=== PATIENT | male | born 1940 | race Asian ===

== ENCOUNTER 2018-01-07 13:48 | Inpatient (IN) | payer MEDICARE, MEDICAID ==
[~2018-01-07] VITALS: Ht 165.1 cm; Wt 40.6 kg
[~2018-01-07 13:48] MED LIST: ATORVASTATIN CA20 MG ORAL; CLOPIDOGREL75 MG ORAL; FUROSEMIDE20 M1 ORAL; GLIMEPIRIDE4 MG ORAL; GLIPIZIDE5 MG ORAL; ISOSORBIDE MONO60 M1 PO; LISINOPRIL20 MG ORAL; METFORMIN HCL1000 M1 ORAL; POTASSIUM CHLO10 MEQ ORAL; TERAZOSIN HCL1 MG ORAL; TRADJENTA5 MG PO
--- NOTE | 2018-01-07 13:53 | Emergency Room Report ---
"History of Present Illness General Source: EMS (Vasiliy Lu MD) Source: Medical Record, EMS (Bushra Dee DO) Present Illness HPI Patient is a 77-year-old male brought in by EMS after the patient was noted to have decreased blood pressure. Patient was reportedly the noted to have prior history of type had type 2 diabetes and hypertension. Patient was noted be hypotensive by EMS. The patient was noted to be poorly verbal.The patient had recently discharged from the hospital. The patient was noted to have a recent myocardial infarction.Patient denies any chest pain at this time. 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 pain Was reportedly sent to the emergency room with reports of low blood pressure Patient had a complicated medical stay and history including possible tuberculosis Also cardiac event non-STEMI Patient family had refused any further intervention at that time Upon today's arrival the patient's EKG was significantly abnormal Previous EKG is printed and contact was made with cardiology specialty who saw the patient in the hospital recently It was felt that the patient's EKG appeared similar to his previous and further catheterization intervention| diverted (Bushra Dee DO) Allergies: Coded Allergies: No Known Allergies (Unverified , 12/17/17) Patient History Past Medical History: see triage record Reviewed Nursing Documentation: PMH: Agreed; PSxH: Agreed (Vasiliy Lu MD) Limited by: medical condition Past Medical History: see triage record Pertinent Family History: unable to obtain Reviewed Nursing Documentation: PMH: Agreed; PSxH: Agreed (Bushra Dee DO) Nursing Documentation-PMH Hx Cardiac Problems: Yes Hx Hypertension: Yes Hx COPD: Yes Hx Diabetes: Yes Hx Cancer: No Hx Gastrointestinal Problems: No Hx Neurological Problems: No (Vasiliy Lu MD) Review of Systems All Other Systems: limited - by poor historian (Vasiliy Lu MD) All Other Systems: limited - Other than the ones mentioned in the history of present illness all others are reviewed however they do stay limited due to the patient's mental status (Bushra Dee DO) Physical Exam Sp02 EP Interpretation: reviewed, normal General Appearance: normal inspection, alert, cachetic, thin, Chronically Ill Head: atraumatic ENT: normal ENT inspection, hearing grossly normal, normal voice Neck: normal inspection, full range of motion, supple, no bony tend Respiratory: normal inspection, lungs clear, normal breath sounds, no respiratory distress, no retraction, no wheezing Cardiovascular #1: regular rate, rhythm, no edema Gastrointestinal: normal inspection, normal bowel sounds, non tender, soft, no guarding, no hernia Genitourinary: no CVA tenderness Musculoskeletal: normal inspection, back normal, normal range of motion Neurologic: alert, responsive, speech normal Psychiatric: normal inspection, judgement/insight normal, mood/affect normal Skin: normal inspection, normal color, no rash (Vasiliy Lu MD) 98% on 2 L which is a normal percentage Sp02 EP Interpretation: normal General Appearance: mild distress - Patient appears frail Head: normocephalic, atraumatic Eyes: bilateral eye PERRL ENT: dry mucus membranes Neck: supple Respiratory: no respiratory distress, no retraction, crackles Cardiovascular #1: regular rate, rhythm, no edema Gastrointestinal: non tender, soft, no mass Musculoskeletal: normal inspection Neurologic: alert, responsive Skin: no rash (Bushra Dee DO) Procedures Critical Care Time Critical Care Time 50 minutes for multiple re-evaluations initial hypotensive presentation multiple comorbidities multiple specialists not including any procedural time (Bushra Dee DO) Medical Decision Making Diagnostic Impression: Primary Impression: NSTEMI (non-ST elevated myocardial infarction) Additional Impression: Hypotension ER Course Patient presented for hypotension. The differential diagnosis included wasn't limited to myocardial infarction, aortic dissection, sepsis, dehydration among others.Because of complexity of patient's case laboratory testing and imaging studies were ordered. The EKG was noted to have evidence of markedness to depression in the lateral leads. (Vasiliy Lu MD) ER Course Patient is a fairly complex patient with multiple differential to consideration including but not limited to cardiac cardiopulmonary and vascular emergencies Patient has extensive and significant medical history Troponin levels again returned elevated Patient's EKG is reviewed with cardiology at bedside It is felt that the EKG shows some similar findings to previous And therefore cardiac catheterization was not emergently required Patient's blood pressure has done better with acute intervention Patient requiring higher level of care admission continued care Labs Test 01/07/18 15:15 White Blood Count 4.7 K/UL (4.8-10.8) Red Blood Count 2.45 M/UL (4.70-6.10) Hemoglobin 7.9 G/DL (14.2-18.0) Hematocrit 24.9 % (42.0-52.0) Mean Corpuscular Volume 101 FL (80-99) Mean Corpuscular Hemoglobin 32.4 PG (27.0-31.0) Mean Corpuscular Hemoglobin Concent 32.0 G/DL (32.0-36.0) Red Cell Distribution Width 15.9 % (11.6-14.8) Platelet Count 286 K/UL (150-450) Mean Platelet Volume 5.3 FL (6.5-10.1) Neutrophils (%) (Auto) 74.8 % (45.0-75.0) Lymphocytes (%) (Auto) 13.0 % (20.0-45.0) Monocytes (%) (Auto) 7.9 % (1.0-10.0) Eosinophils (%) (Auto) 2.9 % (0.0-3.0) Basophils (%) (Auto) 1.3 % (0.0-2.0) Prothrombin Time 11.3 SEC (9.30-11.50) Prothromb Time International Ratio 1.1 (0.9-1.1) Activated Partial Thromboplast Time 28 SEC (23-33) Sodium Level 143 MMOL/L (136-145) Potassium Level 3.6 MMOL/L (3.5-5.1) Chloride Level 109 MMOL/L (98-107) Carbon Dioxide Level 30 MMOL/L (21-32) Anion Gap 4 mmol/L (5-15) Blood Urea Nitrogen 31 mg/dL (7-18) Creatinine 0.7 MG/DL (0.55-1.30) Estimat Glomerular Filtration Rate mL/min (>60) Glucose Level 142 MG/DL (74-106) Calcium Level 8.4 MG/DL (8.5-10.1) Total Bilirubin 0.4 MG/DL (0.2-1.0) Aspartate Amino Transf (AST/SGOT) 26 U/L (15-37) Alanine Aminotransferase (ALT/SGPT) 19 U/L (12-78) Alkaline Phosphatase 88 U/L (46-116) Total Creatine Kinase 61 U/L (26-308) Creatine Kinase MB 2.8 NG/ML (0.0-3.6) Creatine Kinase MB Relative Index 4.5 Troponin I 3.757 ng/mL (0.000-0.056) Pro-B-Type Natriuretic Peptide 9091 pg/mL (0-125) Total Protein 5.9 G/DL (6.4-8.2) Albumin 2.3 G/DL (3.4-5.0) Globulin 3.6 g/dL Albumin/Globulin Ratio 0.6 (1.0-2.7) Lipase 99 U/L (73-393) (Bushra Dee DO) EKG Diagnostic Results Rate: normal Rhythm: NSR ST Segments: other - Mild changes in the V1 and V2, ST segment mild elevation, V4 V5 ST segment depression (Bushra Dee DO) Rhythm Strip Diag. Results EP Interpretation: yes Rate: 88 Rhythm: NSR, no PVC's, no ectopy (Bushra Dee DO) Chest X-Ray Diagnostic Results Chest X-Ray Diagnostic Results : Chest X-Ray Ordered: Yes # of Views/Limited/Complete: 1 View Indication: Chest Pain EP Interpretation: Yes Interpretation: no consolidation, no pneumothorax, other Impression: No acute disease (Bushra Dee DO) Status: improved (Vasiliy Lu MD) Status: improved (Bushra Dee DO) Disposition: ADMITTED INPATIENT Condition: Critical Vasiliy Lu MD Jan 07, 2018 13:53 Bushra Dee DO Jan 07, 2018 15:32"
[2018-01-07] MEDS ORDERED: Sodium Chloride 500ML 500 ML IV ONE (14:00)
[2018-01-07 14:33] VITALS: BP 90/40
--- NOTE | 2018-01-07 15:21 | Cardiac Electrophysiology PN ---
Subjective Subjective [id number] Objective Last 24 Hour Vital Signs Date Time Temp Pulse Resp B/P (MAP) Pulse Ox O2 Delivery O2 Flow Rate FiO2 01/07/18 14:33 99.0 16 90/40 97 Room Air 99.0 01/07/18 13:50 99.0 80 16 90/40 97 Room Air 99.0 Domingo Swanson MD Jan 07, 2018 15:21
[2018-01-07 15:33] LABS: HEMATOCRIT 24.9 % (42.0-52.0); HEMOGLOBIN 7.9 G/DL (14.2-18.0); MEAN CORPUSCULAR VOLUME 101 FL (80-99); PLATELET COUNT 286 K/UL (150-450); RED BLOOD COUNT 2.45 M/UL (4.70-6.10); RED CELL DISTRIBUTION WIDTH 15.9 % (11.6-14.8); WHITE BLOOD COUNT 4.7 K/UL (4.8-10.8)
[2018-01-07 15:36] LABS: BASOPHILS % (AUTO) 1.3 % (0.0-2.0); EOSINOPHILS % (AUTO) 2.9 % (0.0-3.0); MONOCYTES % (AUTO) 7.9 % (1.0-10.0); NEUTROPHILS % (AUTO) 74.8 % (45.0-75.0)
[2018-01-07 15:46] LABS: INR 1.1 (0.9-1.1)
[2018-01-07 15:50] LABS: ANION GAP 4 mmol/L (5-15); BLOOD UREA NITROGEN 31 mg/dL (7-18); CALCIUM 8.4 MG/DL (8.5-10.1); CARBON DIOXIDE 30 MMOL/L (21-32); CHLORIDE 109 MMOL/L (98-107); CREATININE 0.7 MG/DL (0.55-1.30); POTASSIUM 3.6 MMOL/L (3.5-5.1); SODIUM 143 MMOL/L (136-145)
[2018-01-07 16:05] LABS: ALANINE AMINOTRANSFERASE 19 U/L (12-78); ALBUMIN 2.3 G/DL (3.4-5.0); ALBUMIN/GLOBULIN RATIO 0.6 (1.0-2.7); ALKALINE PHOSPHATASE 88 U/L (46-116); ASPARTATE AMINO TRANSFERASE 26 U/L (15-37); BILIRUBIN,TOTAL 0.4 MG/DL (0.2-1.0); CKMB 2.8 NG/ML (0.0-3.6); CREATINE KINASE 61 U/L (26-308)
[2018-01-07 16:21] VITALS: BP_SYST 101; BP_SYST 103; BP_SYST 98; BP_DIAS 43; BP_DIAS 48; BP_DIAS 57
[2018-01-07 16:28] VITALS: BP 103/57
[2018-01-07] MEDS ORDERED: POTASSIUM CHLOR8 ME2 PO (17:32)
[2018-01-07] MEDS ORDERED: CLOPIDOGREL75 MG ORAL (17:32)
[2018-01-07] MEDS ORDERED: GLIMEPIRIDE4 MG ORAL (17:32)
[2018-01-07] MEDS ORDERED: ISOSORBIDE MONO60 M1 PO (17:32)
[2018-01-07] MEDS ORDERED: GLUCOTROL10 MG ORAL (17:32)
[2018-01-07] MEDS ORDERED: METFORMIN HCL1000 M1 ORAL (17:32)
[2018-01-07] MEDS ORDERED: LISINOPRIL20 MG ORAL (17:32)
[2018-01-07] MEDS ORDERED: ATORVASTATIN CA20 MG ORAL (17:32)
[2018-01-07 17:34] VITALS: BP 101/55
--- NOTE | 2018-01-07 18:06 | History and Physical ---
"History of Present Illness General Reason for Hospitalization: Generalized Weakness Present Illness Allergies: Coded Allergies: No Known Allergies (Unverified , 12/17/17) Medication History Scheduled Atorvastatin Calcium* (Atorvastatin Calcium*), 20 MG ORAL DAILY, (Reported) Clopidogrel* (Clopidogrel*), 75 MG ORAL DAILY, (Reported) Glimepiride* (Glimepiride*), 4 MG ORAL BID, (Reported) Glipizide* (Glucotrol*), 10 MG ORAL BID, (Reported) Isosorbide Mononitrate (Isosorbide Mononitrate Er), 60 MG PO DAILY, (Reported) Lisinopril (Lisinopril*), 20 MG ORAL DAILY, (Reported) Metformin Hcl* (Metformin Hcl*), 1,000 MG ORAL BID, (Reported) Potassium Chloride (Potassium Chloride), 8 MEQ PO DAILY, (Reported) Patient History Healthcare decision maker Resuscitation status Advanced Directive on File Physical Exam General Appearance: no apparent distress Lines, tubes and drains: peripheral HEENT: normocephalic, atraumatic, EOMI, pharynx normal Neck: non-tender, normal inspection Respiratory/Chest: lungs clear Cardiovascular/Chest: normal peripheral pulses, normal rate, regular rhythm, no JVD Abdomen: non tender, soft, no organomegaly Extremities: normal range of motion Last 24 Hour Vital Signs Date Time Temp Pulse Resp B/P (MAP) Pulse Ox O2 Delivery O2 Flow Rate FiO2 01/07/18 17:34 96.8 66 18 101/55 (70) 98 96.8 01/07/18 17:27 98.9 85 18 103/57 98 Room Air 98.9 01/07/18 16:28 98.9 85 18 103/57 98 Room Air 98.9 01/07/18 16:21 71 103/57 72 101/43 01/07/18 14:33 99.0 16 90/40 97 Room Air 99.0 01/07/18 13:50 99.0 80 16 90/40 97 Room Air 99.0 Intake and Output 01/06/18 01/07/18 19:00 07:00 # Bowel Movements 1 Laboratory Tests Test 01/07/18 15:15 White Blood Count 4.7 K/UL (4.8-10.8) L Red Blood Count 2.45 M/UL (4.70-6.10) L Hemoglobin 7.9 G/DL (14.2-18.0) L Hematocrit 24.9 % (42.0-52.0) L Mean Corpuscular Volume 101 FL (80-99) H Mean Corpuscular Hemoglobin 32.4 PG (27.0-31.0) H Mean Corpuscular Hemoglobin Concent 32.0 G/DL (32.0-36.0) Red Cell Distribution Width 15.9 % (11.6-14.8) H Platelet Count 286 K/UL (150-450) Mean Platelet Volume 5.3 FL (6.5-10.1) L Neutrophils (%) (Auto) 74.8 % (45.0-75.0) Lymphocytes (%) (Auto) 13.0 % (20.0-45.0) L Monocytes (%) (Auto) 7.9 % (1.0-10.0) Eosinophils (%) (Auto) 2.9 % (0.0-3.0) Basophils (%) (Auto) 1.3 % (0.0-2.0) Prothrombin Time 11.3 SEC (9.30-11.50) Prothromb Time International Ratio 1.1 (0.9-1.1) Activated Partial Thromboplast Time 28 SEC (23-33) Sodium Level 143 MMOL/L (136-145) Potassium Level 3.6 MMOL/L (3.5-5.1) Chloride Level 109 MMOL/L (98-107) H Carbon Dioxide Level 30 MMOL/L (21-32) Anion Gap 4 mmol/L (5-15) L Blood Urea Nitrogen 31 mg/dL (7-18) H Creatinine 0.7 MG/DL (0.55-1.30) Estimat Glomerular Filtration Rate mL/min (>60) Glucose Level 142 MG/DL (74-106) H Calcium Level 8.4 MG/DL (8.5-10.1) L Total Bilirubin 0.4 MG/DL (0.2-1.0) Aspartate Amino Transf (AST/SGOT) 26 U/L (15-37) Alanine Aminotransferase (ALT/SGPT) 19 U/L (12-78) Alkaline Phosphatase 88 U/L (46-116) Total Creatine Kinase 61 U/L (26-308) Creatine Kinase MB 2.8 NG/ML (0.0-3.6) Creatine Kinase MB Relative Index 4.5 Troponin I 3.757 ng/mL (0.000-0.056) Pro-B-Type Natriuretic Peptide 9091 pg/mL (0-125) H Total Protein 5.9 G/DL (6.4-8.2) L Albumin 2.3 G/DL (3.4-5.0) L Globulin 3.6 g/dL Albumin/Globulin Ratio 0.6 (1.0-2.7) L Lipase 99 U/L (73-393) Height (Feet): 5 Height (Inches): 5.00 Weight (Pounds): 70 Objective Narrative Sp02 EP Interpretation: reviewed, normal General Appearance: normal inspection, alert, cachetic, thin, Chronically Ill 98% on 2 L which is a normal percentage Sp02 EP Interpretation: normal General Appearance: mild distress - Patient appears frail Head: normocephalic, atraumatic Eyes: bilateral eye PERRL ENT: dry mucus membranes Neck: supple Respiratory: no respiratory distress, no retraction, crackles Cardiovascular #1: regular rate, rhythm, no edema Gastrointestinal: non tender, soft, no mass Musculoskeletal: normal inspection Neurologic: alert, responsive Skin: no rash Assessment/Plan Status: stable Status Narrative HPI Patient is a 77-year-old male brought in by EMS after the patient was noted to have decreased blood pressure. Patient was reportedly the noted to have prior history of type had type 2 diabetes and hypertension. Patient was noted be hypotensive by EMS. The patient was noted to be poorly verbal.The patient had recently discharged from the hospital. The patient was noted to have a recent myocardial infarction.Patient denies any chest pain at this time. 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 patient denies any chest pain Was reportedly sent to the emergency room with reports of low blood pressure Patient had a complicated medical stay and history including tuberculosis on 4 drug anti TB treatment Also cardiac event non-STEMI Patient family had refused any further intervention at that time Upon today's arrival the patient's EKG was significantly abnormal Previous EKG is printed and contact was made with cardiology specialty who saw the patient in the hospital recently It was felt that the patient's EKG appeared similar to his previous and further catheterization intervention| diverted Allergies: Coded Allergies: No Known Allergies (Unverified , 12/17/17) Past Medical History: Hx Cardiac Problems: CAD, recent STEMI Hx Hypertension: Yes Hx COPD: Yes Hx Diabetes: Yes Hx Cancer: No Hx Gastrointestinal Problems: No Hx Neurological Problems: No Hx Tuberculosis: Yes ROS: All Other Systems: limited - Other than the ones mentioned in the history of present illness all others are reviewed however they do stay limited due to the patient's mental status Diagnostic Impression: Primary Impression: NSTEMI (non-ST elevated myocardial infarction) Additional Impression: Hypotension Patient presented for hypotension. The differential diagnosis included wasn't limited to myocardial infarction, aortic dissection, sepsis, dehydration among others.Because of complexity of patient's case laboratory testing and imaging studies were ordered. The EKG was noted to have evidence of markedness to depression in the lateral leads. Patient is a fairly complex patient with multiple differential to consideration including but not limited to cardiac cardiopulmonary and vascular emergencies Patient has extensive and significant medical history Troponin levels again returned elevated Patient's EKG is reviewed with cardiology at bedside It is felt that the EKG shows some similar findings to previous And therefore cardiac catheterization was not emergently required Patient's blood pressure has done better with acute intervention Patient requiring higher level of care admission continued care Labs Test 01/07/18 15:15 White Blood Count 4.7 K/UL (4.8-10.8) Red Blood Count 2.45 M/UL (4.70-6.10) Hemoglobin 7.9 G/DL (14.2-18.0) Hematocrit 24.9 % (42.0-52.0) Mean Corpuscular Volume 101 FL (80-99) Mean Corpuscular Hemoglobin 32.4 PG (27.0-31.0) Mean Corpuscular Hemoglobin Concent 32.0 G/DL (32.0-36.0) Red Cell Distribution Width 15.9 % (11.6-14.8) Platelet Count 286 K/UL (150-450) Mean Platelet Volume 5.3 FL (6.5-10.1) Neutrophils (%) (Auto) 74.8 % (45.0-75.0) Lymphocytes (%) (Auto) 13.0 % (20.0-45.0) Monocytes (%) (Auto) 7.9 % (1.0-10.0) Eosinophils (%) (Auto) 2.9 % (0.0-3.0) Basophils (%) (Auto) 1.3 % (0.0-2.0) Prothrombin Time 11.3 SEC (9.30-11.50) Prothromb Time International Ratio 1.1 (0.9-1.1) Activated Partial Thromboplast Time 28 SEC (23-33) Sodium Level 143 MMOL/L (136-145) Potassium Level 3.6 MMOL/L (3.5-5.1) Chloride Level 109 MMOL/L (98-107) Carbon Dioxide Level 30 MMOL/L (21-32) Anion Gap 4 mmol/L (5-15) Blood Urea Nitrogen 31 mg/dL (7-18) Creatinine 0.7 MG/DL (0.55-1.30) Estimat Glomerular Filtration Rate mL/min (>60) Glucose Level 142 MG/DL (74-106) Calcium Level 8.4 MG/DL (8.5-10.1) Total Bilirubin 0.4 MG/DL (0.2-1.0) Aspartate Amino Transf (AST/SGOT) 26 U/L (15-37) Alanine Aminotransferase (ALT/SGPT) 19 U/L (12-78) Alkaline Phosphatase 88 U/L (46-116) Total Creatine Kinase 61 U/L (26-308) Creatine Kinase MB 2.8 NG/ML (0.0-3.6) Creatine Kinase MB Relative Index 4.5 Troponin I 3.757 ng/mL (0.000-0.056) Pro-B-Type Natriuretic Peptide 9091 pg/mL (0-125) Total Protein 5.9 G/DL (6.4-8.2) Albumin 2.3 G/DL (3.4-5.0) Globulin 3.6 g/dL Albumin/Globulin Ratio 0.6 (1.0-2.7) Lipase 99 U/L (73-393) EKG: Rate: normal Rhythm: NSR ST Segments: other - Mild changes in the V1 and V2, ST segment mild elevation, V4 V5 ST segment depression Corwin Vyas MD Jan 07, 2018 18:06"
[2018-01-07 20:00] VITALS: BP 91/51
[2018-01-07] MEDS ORDERED: Tylenol #3 tab (300mg/30mg) ORAL PRN (20:00)
[2018-01-07] MEDS: Heparin 5000 units/ml inj SUBQ SCH (21:00)
[2018-01-07] MEDS: NovoLOG Insulin Flexpen SUBQ SCH (21:00)
[2018-01-07] MEDS ORDERED: Terazosin 1mg cap ORAL SCH (21:00)
[2018-01-07] MEDS: Isoniazid 300mg tab ORAL SCH (21:37)
[2018-01-07] MEDS: Pyridoxine 50mg tab ORAL SCH (21:38)
[2018-01-07] MEDS: RIFAMPIN 150 MG ORAL SCH (21:38)
[2018-01-07] MEDS: Atorvastatin 20mg tab ORAL SCH (21:40)
[2018-01-07] MEDS: Nitroglycerin 2% oint pkt TOPIC SCH (21:55)
[2018-01-08] VITALS: BP 83/41
--- NOTE | 2018-01-08 | Consultation ---
DATE OF CONSULTATION: CARDIOLOGY CONSULTATION CONSULTING PHYSICIAN: Domingo Swanson M.D. REFERRING PHYSICIAN: Corwin Vyas M.D. REASON FOR CONSULTATION: Possible myocardial infarction. HISTORY OF PRESENT ILLNESS: The patient is a 77-year-old gentleman with history of hypertension, diabetes, and recent non-Q-wave myocardial infarction with troponin around 6, which was discharged yesterday. Cardiac catheterization was offered to the patient, however, they refused and wanted to have medical therapy. The patient was noted to have hypotension and was sent to the emergency room for further evaluation. At the time of my evaluation, the patient is alert and responsive. Denies any chest pain or shortness of breath. The patient was interviewed by Thai tile inspector. REVIEW OF SYSTEMS: Negative other than what was mentioned in history of present illness. PAST MEDICAL HISTORY: 1. Hypertension. 2. Diabetes. 3. Chronic obstructive pulmonary disease. 4. Prior myocardial infarction. FAMILY HISTORY: Noncontributory. SOCIAL HISTORY: Does not smoke or drink alcohol. PHYSICAL EXAMINATION: VITAL SIGNS: Show blood pressure of 90/40, pulse is 80, respirations 18, and he is afebrile. HEAD AND NECK: Showed no JVD. LUNGS: Clear. CARDIOVASCULAR: Shows regular S1 and S2 with no gallop. ABDOMEN: Soft. EXTREMITIES: No pitting edema. LABORATORY AND DIAGNOSTIC DATA: His EKG shows sinus rhythm with inferolateral ST depression, but unchanged from prior electrocardiogram. His labs are pending. ASSESSMENT AND PLAN: 1. Hypotension could be due to dehydration. Laboratories are pending at this time. We will give the patient IV fluid with repeat cardiac enzymes in view of patient's recent myocardial infarction and follow the patient clinically. 2. Recent non-ST elevation myocardial infarction. Echocardiogram for ejection fraction 40% to 45%. Resume aspirin, Plavix, metoprolol, and Lipitor. 3. Questionable tuberculosis. The patient is off respiratory isolation, was cleared by Department of Health. Thank you very much, Dr. Vyas, to follow me to participate in the care of this patient. Please do not hesitate to contact me for any questions regarding my evaluation. The case was discussed with the patient in the emergency room. Domingo Swanson M.D. DR: BERNY JOB#: [id number] CC:
[2018-01-08 04:00] VITALS: BP 103/54
[2018-01-08 05:13] LABS: BASOPHILS % (AUTO) 1.5 % (0.0-2.0); EOSINOPHILS % (AUTO) 5.1 % (0.0-3.0); HEMATOCRIT 27.3 % (42.0-52.0); HEMOGLOBIN 9.3 G/DL (14.2-18.0); LYMPHOCYTES % (AUTO) 12.5 % (20.0-45.0); MEAN CORPUSCULAR VOLUME 99 FL (80-99); MONOCYTES % (AUTO) 9.5 % (1.0-10.0); NEUTROPHILS % (AUTO) 71.4 % (45.0-75.0); PLATELET COUNT 248 K/UL (150-450); RED BLOOD COUNT 2.76 M/UL (4.70-6.10); RED CELL DISTRIBUTION WIDTH 15.7 % (11.6-14.8); WHITE BLOOD COUNT 4.3 K/UL (4.8-10.8)
[2018-01-08] MEDS: Nitroglycerin 2% oint pkt TOPIC SCH (05:50)
[2018-01-08] MEDS: NovoLOG Insulin Flexpen SUBQ SCH ×4 (06:13→21:15)
[2018-01-08 08:00] VITALS: BP 99/50
--- NOTE | 2018-01-08 08:41 | Diagnostic Imaging Report ---
Indication: Chest pain Technique: One view of the chest Comparison: 12/17/2017 Findings: Extensive calcific pleural and parenchymal scarring is again demonstrated at the left lung base. Extensive parenchymal scarring is seen in the left infrahilar and suprahilar regions. The right lung and pleural space remain clear. The heart size is normal. The aorta is calcified. Findings are unchanged Impression: Extensive chronic appearing changes, as described, stable since 12/17/2017. No definite acute process
[2018-01-08] MEDS ORDERED: metFORMIN 500mg tab ORAL SCH (09:00)
[2018-01-08] MEDS: Heparin 5000 units/ml inj SUBQ SCH ×2 (09:43→20:45)
[2018-01-08] MEDS: Isoniazid 300mg tab ORAL SCH (09:44)
[2018-01-08] MEDS: Pyridoxine 50mg tab ORAL SCH (09:44)
[2018-01-08] MEDS: RIFAMPIN 150 MG ORAL SCH (09:45)
[2018-01-08 12:00] VITALS: BP 110/61
--- NOTE | 2018-01-08 13:28 | Cardiac Electrophysiology PN ---
Assessment/Plan Assessment/Plan 1. Hypotension could be due to dehydration. We will give the patient IV fluid 2. Recent non-ST elevation myocardial infarction. Troponin still around 4 but no CP.ECG unchanged Echocardiogram showed ejection fraction 40% to 45%. On aspirin, Plavix, metoprolol, and Lipitor.Family wanted medical therapy last admission. Will DW them cardiac cath again. 3. Questionable tuberculosis. The patient is off respiratory isolation, was cleared by Department of Health. 4. Azotemia on IV fluid. Subjective Subjective Comfortable in NAD. No CP on KALIN. Objective Last 24 Hour Vital Signs Date Time Temp Pulse Resp B/P (MAP) Pulse Ox O2 Delivery O2 Flow Rate FiO2 01/08/18 12:00 Room Air 01/08/18 12:00 74 01/08/18 12:00 97.8 75 20 110/61 (77) 99 97.8 01/08/18 08:00 88 01/08/18 08:00 Room Air 01/08/18 08:00 97.4 86 18 99/50 (66) 96 97.4 01/08/18 05:50 103/54 01/08/18 04:00 69 67 01/08/18 04:00 67 01/08/18 04:00 97.3 67 16 103/54 (70) 100 97.3 01/08/18 04:00 Room Air 01/08/18 00:00 97.3 72 16 83/41 (55) 98 97.3 01/08/18 00:00 75 01/08/18 00:00 Room Air 01/07/18 21:55 91/51 01/07/18 20:00 Room Air 01/07/18 20:00 96.8 73 16 91/51 (64) 98 96.8 01/07/18 20:00 73 01/07/18 19:30 Room Air 01/07/18 17:34 96.8 66 18 101/55 (70) 98 96.8 01/07/18 17:30 67 01/07/18 17:27 98.9 85 18 103/57 98 Room Air 98.9 01/07/18 16:28 98.9 85 18 103/57 98 Room Air 98.9 01/07/18 16:21 71 103/57 72 101/43 01/07/18 14:33 99.0 16 90/40 97 Room Air 99.0 01/07/18 13:50 99.0 80 16 90/40 97 Room Air 99.0 Intake and Output 01/07/18 01/08/18 19:00 07:00 Intake Total 500 ml 400 ml Output Total 275 ml Balance 500 ml 125 ml Intake Oral 0 ml 150 ml IV Total 500 ml Blood Product 250 ml Output Urine Total 275 ml Laboratory Tests Test 01/07/18 15:15 01/07/18 18:45 01/08/18 04:35 White Blood Count 4.7 K/UL (4.8-10.8) L 4.3 K/UL (4.8-10.8) L Red Blood Count 2.45 M/UL (4.70-6.10) L 2.76 M/UL (4.70-6.10) L Hemoglobin 7.9 G/DL (14.2-18.0) L 9.3 G/DL (14.2-18.0) L Hematocrit 24.9 % (42.0-52.0) L 27.3 % (42.0-52.0) L Mean Corpuscular Volume 101 FL (80-99) H 99 FL (80-99) Mean Corpuscular Hemoglobin 32.4 PG (27.0-31.0) H 33.6 PG (27.0-31.0) H Mean Corpuscular Hemoglobin Concent 32.0 G/DL (32.0-36.0) 34.1 G/DL (32.0-36.0) Red Cell Distribution Width 15.9 % (11.6-14.8) H 15.7 % (11.6-14.8) H Platelet Count 286 K/UL (150-450) 248 K/UL (150-450) Mean Platelet Volume 5.3 FL (6.5-10.1) L 5.3 FL (6.5-10.1) L Neutrophils (%) (Auto) 74.8 % (45.0-75.0) 71.4 % (45.0-75.0) Lymphocytes (%) (Auto) 13.0 % (20.0-45.0) L 12.5 % (20.0-45.0) L Monocytes (%) (Auto) 7.9 % (1.0-10.0) 9.5 % (1.0-10.0) Eosinophils (%) (Auto) 2.9 % (0.0-3.0) 5.1 % (0.0-3.0) H Basophils (%) (Auto) 1.3 % (0.0-2.0) 1.5 % (0.0-2.0) Prothrombin Time 11.3 SEC (9.30-11.50) Prothromb Time International Ratio 1.1 (0.9-1.1) Activated Partial Thromboplast Time 28 SEC (23-33) Sodium Level 143 MMOL/L (136-145) Potassium Level 3.6 MMOL/L (3.5-5.1) Chloride Level 109 MMOL/L (98-107) H Carbon Dioxide Level 30 MMOL/L (21-32) Anion Gap 4 mmol/L (5-15) L Blood Urea Nitrogen 31 mg/dL (7-18) H Creatinine 0.7 MG/DL (0.55-1.30) Estimat Glomerular Filtration Rate mL/min (>60) Glucose Level 142 MG/DL (74-106) H Calcium Level 8.4 MG/DL (8.5-10.1) L Total Bilirubin 0.4 MG/DL (0.2-1.0) Aspartate Amino Transf (AST/SGOT) 26 U/L (15-37) Alanine Aminotransferase (ALT/SGPT) 19 U/L (12-78) Alkaline Phosphatase 88 U/L (46-116) Total Creatine Kinase 61 U/L (26-308) Creatine Kinase MB 2.8 NG/ML (0.0-3.6) Creatine Kinase MB Relative Index 4.5 Troponin I 3.757 ng/mL (0.000-0.056) 4.646 ng/mL (0.000-0.056) 4.005 ng/mL (0.000-0.056) Pro-B-Type Natriuretic Peptide 9091 pg/mL (0-125) H 6403 pg/mL (0-125) H Total Protein 5.9 G/DL (6.4-8.2) L Albumin 2.3 G/DL (3.4-5.0) L Globulin 3.6 g/dL Albumin/Globulin Ratio 0.6 (1.0-2.7) L Lipase 99 U/L (73-393) Hemoglobin A1c 5.7 % (4.3-6.0) Thyroid Stimulating Hormone (TSH) 1.101 uiU/mL (0.358-3.740) Microbiology Date/Time Source Procedure Growth Status 01/07/18 16:00 Rectum Received Objective HEAD AND NECK: Showed no JVD. LUNGS: Clear. CARDIOVASCULAR: Shows regular S1 and S2 with no gallop. ABDOMEN: Soft. EXTREMITIES: No pitting edema. Domingo Swanson MD Jan 08, 2018 13:28
--- NOTE | 2018-01-08 14:57 | General Progress Note ---
Assessment/Plan Assessment/Plan Encephalopathy due to the [facility] MDD -lexapro 10mg qam -zyprexa 2.5 mg qhs Subjective Date patient seen: Jan 08, 2018 Neurologic/Psychiatric: Reports: anxiety, depressed Allergies: Coded Allergies: No Known Allergies (Unverified , 12/17/17) Subjective the pt is returned. cont to be depressed. the meds were restarted Objective Last 24 Hour Vital Signs Date Time Temp Pulse Resp B/P (MAP) Pulse Ox O2 Delivery O2 Flow Rate FiO2 01/08/18 12:00 Room Air 01/08/18 12:00 74 01/08/18 12:00 97.8 75 20 110/61 (77) 99 97.8 01/08/18 08:00 88 01/08/18 08:00 Room Air 01/08/18 08:00 97.4 86 18 99/50 (66) 96 97.4 01/08/18 05:50 103/54 01/08/18 04:00 69 67 01/08/18 04:00 67 01/08/18 04:00 97.3 67 16 103/54 (70) 100 97.3 01/08/18 04:00 Room Air 01/08/18 00:00 97.3 72 16 83/41 (55) 98 97.3 01/08/18 00:00 75 01/08/18 00:00 Room Air 01/07/18 21:55 91/51 01/07/18 20:00 Room Air 01/07/18 20:00 96.8 73 16 91/51 (64) 98 96.8 01/07/18 20:00 73 01/07/18 19:30 Room Air 01/07/18 17:34 96.8 66 18 101/55 (70) 98 96.8 01/07/18 17:30 67 01/07/18 17:27 98.9 85 18 103/57 98 Room Air 98.9 01/07/18 16:28 98.9 85 18 103/57 98 Room Air 98.9 01/07/18 16:21 71 103/57 72 101/43 Intake and Output 01/07/18 01/08/18 19:00 07:00 Intake Total 500 ml 400 ml Output Total 275 ml Balance 500 ml 125 ml Intake Oral 0 ml 150 ml IV Total 500 ml Blood Product 250 ml Output Urine Total 275 ml Laboratory Tests 01/07/18 15:15: White Blood Count 4.7L, Red Blood Count 2.45L, Hemoglobin 7.9L, Hematocrit 24.9L , Mean Corpuscular Volume 101H, Mean Corpuscular Hemoglobin 32.4H, Mean Corpuscular Hemoglobin Concent 32.0, Red Cell Distribution Width 15.9H, Platelet Count 286, Mean Platelet Volume 5.3L, Neutrophils (%) (Auto) 74.8, Lymphocytes (%) (Auto) 13.0L, Monocytes (%) (Auto) 7.9, Eosinophils (%) (Auto) 2.9, Basophils (%) (Auto) 1.3, Prothrombin Time 11.3, Prothromb Time International Ratio 1.1, Activated Partial Thromboplast Time 28, Sodium Level 143, Potassium Level 3.6, Chloride Level 109H, Carbon Dioxide Level 30, Anion Gap 4L, Blood Urea Nitrogen 31H, Creatinine 0.7, Estimat Glomerular Filtration Rate , Glucose Level 142H, Calcium Level 8.4L, Total Bilirubin 0.4, Aspartate Amino Transf (AST/SGOT) 26, Alanine Aminotransferase (ALT/SGPT) 19, Alkaline Phosphatase 88, Total Creatine Kinase 61, Creatine Kinase MB 2.8, Creatine Kinase MB Relative Index 4.5, Troponin I 3.757H, Pro-B-Type Natriuretic Peptide 9091H, Total Protein 5.9L, Albumin 2.3L, Globulin 3.6, Albumin/Globulin Ratio 0.6L, Lipase 99 01/07/18 18:45: Troponin I 4.646H 01/08/18 04:35: White Blood Count 4.3L, Red Blood Count 2.76L, Hemoglobin 9.3L, Hematocrit 27.3L , Mean Corpuscular Volume 99, Mean Corpuscular Hemoglobin 33.6H, Mean Corpuscular Hemoglobin Concent 34.1, Red Cell Distribution Width 15.7H, Platelet Count 248, Mean Platelet Volume 5.3L, Neutrophils (%) (Auto) 71.4, Lymphocytes (%) (Auto) 12.5L, Monocytes (%) (Auto) 9.5, Eosinophils (%) (Auto) 5.1H, Basophils (%) (Auto) 1.5, Sodium Level [Pending], Potassium Level [Pending ], Chloride Level [Pending], Carbon Dioxide Level [Pending], Blood Urea Nitrogen [Pending], Creatinine [Pending], Estimat Glomerular Filtration Rate [ Pending], Glucose Level [Pending], Calcium Level [Pending], Troponin I 4.005H, Pro-B-Type Natriuretic Peptide 6403H, Hemoglobin A1c 5.7, Magnesium Level 1.8, Thyroid Stimulating Hormone (TSH) 1.101 Height (Feet): 5 Height (Inches): 5.00 Weight (Pounds): 70 General Appearance: no apparent distress, alert Neurologic: oriented x 3, responsive, depressed affect Dulce Maria Carver MD Jan 08, 2018 14:57
[2018-01-08 15:18] LABS: ANION GAP 5 mmol/L (5-15); BLOOD UREA NITROGEN 30 mg/dL (7-18); CALCIUM 8.1 MG/DL (8.5-10.1); CARBON DIOXIDE 28 MMOL/L (21-32); CHLORIDE 109 MMOL/L (98-107); CREATININE 0.5 MG/DL (0.55-1.30); POTASSIUM 3.6 MMOL/L (3.5-5.1); SODIUM 142 MMOL/L (136-145)
[2018-01-08 16:00] VITALS: BP 109/59
--- NOTE | 2018-01-08 18:55 | Urology Progress Note ---
Assessment/Plan Assessment/Plan urinary retention hx now incontinence BPH hx possible neurogenic bladder hematuria monitor for voiding currently off flomax can consider resuming again later? renal fxn remains stable consider renal imaging cysto later thanks, Subjective Allergies: Coded Allergies: No Known Allergies (Unverified , 12/17/17) Subjective my initial evaluation for this admission all noted, pt recently seen for urinary retention/diff cath, had long-term barrera was on flomax was dc'd to SNF 01/06, barrera was removed readmitted with weakness, low BP barrera out and voiding/incontinent, has condom cath Objective Last 24 Hour Vital Signs Date Time Temp Pulse Resp B/P (MAP) Pulse Ox O2 Delivery O2 Flow Rate FiO2 01/08/18 16:00 80 01/08/18 16:00 Room Air 01/08/18 16:00 98.4 81 20 109/59 (76) 97 98.4 01/08/18 12:00 Room Air 01/08/18 12:00 74 01/08/18 12:00 97.8 75 20 110/61 (77) 99 97.8 01/08/18 08:00 88 01/08/18 08:00 Room Air 01/08/18 08:00 97.4 86 18 99/50 (66) 96 97.4 01/08/18 05:50 103/54 01/08/18 04:00 69 67 01/08/18 04:00 67 01/08/18 04:00 97.3 67 16 103/54 (70) 100 97.3 01/08/18 04:00 Room Air 01/08/18 00:00 97.3 72 16 83/41 (55) 98 97.3 01/08/18 00:00 75 01/08/18 00:00 Room Air 01/07/18 21:55 91/51 01/07/18 20:00 Room Air 01/07/18 20:00 96.8 73 16 91/51 (64) 98 96.8 01/07/18 20:00 73 01/07/18 19:30 Room Air Intake and Output 01/07/18 01/08/18 19:00 07:00 Intake Total 500 ml 400 ml Output Total 275 ml Balance 500 ml 125 ml Intake Oral 0 ml 150 ml IV Total 500 ml Blood Product 250 ml Output Urine Total 275 ml Microbiology Date/Time Source Procedure Growth Status 01/07/18 16:00 Rectum Received Current Medications Medications (Trade) Dose Ordered Sig/Christy Route PRN Reason Start Time Stop Time Status Last Admin Dose Admin Acetaminophen (Tylenol) 650 mg Q4H PRN ORAL Mild Pain/Temp > 100.5 01/07/18 18:45 02/06/18 18:44 Acetaminophen/ Codeine Phosphate (Tylenol #3) 2 tab Q6H PRN ORAL Pain Scale (6-10) 01/07/18 20:00 01/14/18 19:59 Aspirin (Ecotrin) 81 mg DAILY ORAL 01/09/18 09:00 02/08/18 08:59 Atorvastatin Calcium (Lipitor) 20 mg BEDTIME ORAL 01/07/18 21:00 02/06/18 20:59 01/07/18 21:40 Clopidogrel Bisulfate (Plavix) 75 mg DAILY ORAL 01/08/18 09:00 02/07/18 08:59 01/08/18 09:44 Dextrose (Dextrose 50%) 25 ml STAT PRN IV Hypoglycemia 01/07/18 19:45 02/06/18 19:44 Dextrose (Dextrose 50%) 50 ml STAT PRN IV Hypoglycemia 01/07/18 19:45 02/06/18 19:44 Escitalopram Oxalate (Lexapro) 10 mg DAILY ORAL 01/09/18 09:00 02/08/18 08:59 Ethambutol HCl (Myambutol) 800 mg DAILY ORAL 01/07/18 20:30 02/06/18 20:29 01/08/18 09:44 Heparin Sodium (Porcine) (Heparin 5000 units/ml) 5,000 units EVERY 12 HOURS SUBQ 01/07/18 21:00 02/06/18 20:59 01/08/18 09:43 Insulin Aspart (NovoLOG) BEFORE MEALS AND HS SUBQ 01/07/18 21:00 02/06/18 20:59 01/08/18 17:29 Isoniazid (Inh) 300 mg DAILY ORAL 01/07/18 20:30 02/06/18 20:29 01/08/18 09:44 Metoprolol Tartrate (Lopressor) 12.5 mg Q12HR ORAL 01/08/18 21:00 02/07/18 20:59 Olanzapine (ZyPREXA) 2.5 mg BEDTIME ORAL 01/08/18 21:00 02/07/18 20:59 Ondansetron HCl (Zofran) 4 mg Q6H PRN IVP Nausea & Vomiting 01/07/18 20:00 02/06/18 19:59 Pantoprazole (Protonix) 40 mg EVERY 12 HOURS ORAL 01/07/18 21:00 02/06/18 20:59 01/08/18 09:44 Pyrazinamide (Pza) 1,000 mg DAILY ORAL 01/07/18 20:30 02/06/18 20:29 01/08/18 09:45 Pyridoxine HCl (Vitamin B6) 50 mg DAILY ORAL 01/07/18 20:30 02/06/18 20:29 01/08/18 09:44 Rifampin (Rifadin) 450 mg DAILY ORAL 01/07/18 20:30 02/06/18 20:29 01/08/18 09:45 Laboratory Tests 01/08/18 04:35: White Blood Count 4.3L, Red Blood Count 2.76L, Hemoglobin 9.3L, Hematocrit 27.3L , Mean Corpuscular Volume 99, Mean Corpuscular Hemoglobin 33.6H, Mean Corpuscular Hemoglobin Concent 34.1, Red Cell Distribution Width 15.7H, Platelet Count 248, Mean Platelet Volume 5.3L, Neutrophils (%) (Auto) 71.4, Lymphocytes (%) (Auto) 12.5L, Monocytes (%) (Auto) 9.5, Eosinophils (%) (Auto) 5.1H, Basophils (%) (Auto) 1.5, Sodium Level 142, Potassium Level 3.6, Chloride Level 109H, Carbon Dioxide Level 28, Anion Gap 5, Blood Urea Nitrogen 30H, Creatinine 0.5L, Estimat Glomerular Filtration Rate , Glucose Level 107H, Hemoglobin A1c 5.7, Calcium Level 8.1L, Magnesium Level 1.8, Troponin I 4.005H, Pro-B-Type Natriuretic Peptide 6403H, Thyroid Stimulating Hormone (TSH) 1.101 Height (Feet): 5 Height (Inches): 5.00 Weight (Pounds): 70 Objective exam stable, condom cath with yellow/romana urine/slightly blood-tinged BAMSHAD,SAMM Jan 08, 2018 18:55
[2018-01-08 20:00] VITALS: BP 103/54
[2018-01-08] MEDS: Atorvastatin 20mg tab ORAL SCH (20:45)
[2018-01-08] MEDS: OLANZapine 2.5mg tab ORAL SCH (20:46)
[2018-01-08] MEDS: Metoprolol Tartrate 12.5mg TAB ORAL SCH (21:00)
--- NOTE | 2018-01-08 21:43 | Pulmonology Progress Note ---
"Assessment/Plan Assessment/Plan Pulmonary Progress Note Reason for Hospitalization: Generalized Weakness, NSTEMI Present Illness Allergies: Coded Allergies: No Known Allergies (Unverified , 12/17/17) Medication History Scheduled Atorvastatin Calcium* (Atorvastatin Calcium*), 20 MG ORAL DAILY, (Reported) Clopidogrel* (Clopidogrel*), 75 MG ORAL DAILY, (Reported) Glimepiride* (Glimepiride*), 4 MG ORAL BID, (Reported) Glipizide* (Glucotrol*), 10 MG ORAL BID, (Reported) Isosorbide Mononitrate (Isosorbide Mononitrate Er), 60 MG PO DAILY, (Reported) Lisinopril (Lisinopril*), 20 MG ORAL DAILY, (Reported) Metformin Hcl* (Metformin Hcl*), 1,000 MG ORAL BID, (Reported) Potassium Chloride (Potassium Chloride), 8 MEQ PO DAILY, (Reported) Patient History Healthcare decision maker Resuscitation status Advanced Directive on File Physical Exam General Appearance: no apparent distress Lines, tubes and drains: peripheral HEENT: normocephalic, atraumatic, EOMI, pharynx normal Neck: non-tender, normal inspection Respiratory/Chest: lungs clear Cardiovascular/Chest: normal peripheral pulses, normal rate, regular rhythm, no JVD Abdomen: non tender, soft, no organomegaly Extremities: normal range of motion Last 24 Hour Vital Signs Date Time Temp Pulse Resp B/P (MAP) Pulse Ox O2 Delivery O2 Flow Rate FiO2 01/07/18 17:34 96.8 66 18 101/55 (70) 98 96.8 01/07/18 17:27 98.9 85 18 103/57 98 Room Air 98.9 01/07/18 16:28 98.9 85 18 103/57 98 Room Air 98.9 01/07/18 16:21 71 103/57 72 101/43 01/07/18 14:33 99.0 16 90/40 97 Room Air 99.0 01/07/18 13:50 99.0 80 16 90/40 97 Room Air 99.0 Intake and Output 01/06/18 01/07/18 19:00 07:00 # Bowel Movements 1 Laboratory Tests Test 01/07/18 15:15 White Blood Count 4.7 K/UL (4.8-10.8) L Red Blood Count 2.45 M/UL (4.70-6.10) L Hemoglobin 7.9 G/DL (14.2-18.0) L Hematocrit 24.9 % (42.0-52.0) L Mean Corpuscular Volume 101 FL (80-99) H Mean Corpuscular Hemoglobin 32.4 PG (27.0-31.0) H Mean Corpuscular Hemoglobin Concent 32.0 G/DL (32.0-36.0) Red Cell Distribution Width 15.9 % (11.6-14.8) H Platelet Count 286 K/UL (150-450) Mean Platelet Volume 5.3 FL (6.5-10.1) L Neutrophils (%) (Auto) 74.8 % (45.0-75.0) Lymphocytes (%) (Auto) 13.0 % (20.0-45.0) L Monocytes (%) (Auto) 7.9 % (1.0-10.0) Eosinophils (%) (Auto) 2.9 % (0.0-3.0) Basophils (%) (Auto) 1.3 % (0.0-2.0) Prothrombin Time 11.3 SEC (9.30-11.50) Prothromb Time International Ratio 1.1 (0.9-1.1) Activated Partial Thromboplast Time 28 SEC (23-33) Sodium Level 143 MMOL/L (136-145) Potassium Level 3.6 MMOL/L (3.5-5.1) Chloride Level 109 MMOL/L (98-107) H Carbon Dioxide Level 30 MMOL/L (21-32) Anion Gap 4 mmol/L (5-15) L Blood Urea Nitrogen 31 mg/dL (7-18) H Creatinine 0.7 MG/DL (0.55-1.30) Estimat Glomerular Filtration Rate mL/min (>60) Glucose Level 142 MG/DL (74-106) H Calcium Level 8.4 MG/DL (8.5-10.1) L Total Bilirubin 0.4 MG/DL (0.2-1.0) Aspartate Amino Transf (AST/SGOT) 26 U/L (15-37) Alanine Aminotransferase (ALT/SGPT) 19 U/L (12-78) Alkaline Phosphatase 88 U/L (46-116) Total Creatine Kinase 61 U/L (26-308) Creatine Kinase MB 2.8 NG/ML (0.0-3.6) Creatine Kinase MB Relative Index 4.5 Troponin I 3.757 ng/mL (0.000-0.056) Pro-B-Type Natriuretic Peptide 9091 pg/mL (0-125) H Total Protein 5.9 G/DL (6.4-8.2) L Albumin 2.3 G/DL (3.4-5.0) L Globulin 3.6 g/dL Albumin/Globulin Ratio 0.6 (1.0-2.7) L Lipase 99 U/L (73-393) Height (Feet): 5 Height (Inches): 5.00 Weight (Pounds): 70 Objective Narrative Sp02 EP Interpretation: reviewed, normal General Appearance: normal inspection, alert, cachetic, thin, Chronically Ill 98% on 2 L which is a normal percentage Sp02 EP Interpretation: normal General Appearance: mild distress - Patient appears frail Head: normocephalic, atraumatic Eyes: bilateral eye PERRL ENT: dry mucus membranes Neck: supple Respiratory: no respiratory distress, no retraction, crackles Cardiovascular #1: regular rate, rhythm, no edema Gastrointestinal: non tender, soft, no mass Musculoskeletal: normal inspection Neurologic: alert, responsive Skin: no rash Assessment/Plan Status: stable Status Narrative HPI Patient is a 77-year-old male brought in by EMS after the patient was noted to have decreased blood pressure. Patient was reportedly the noted to have prior history of type had type 2 diabetes and hypertension. Patient was noted be hypotensive by EMS. The patient was noted to be poorly verbal.The patient had recently discharged from the hospital. The patient was noted to have a recent myocardial infarction.Patient denies any chest pain at this time. Additionally speaking with a Italian commercial assistant patient denies any chest pain Was reportedly sent to the emergency room with reports of low blood pressure Patient had a complicated medical stay and history including tuberculosis on 4 drug anti TB treatment Also cardiac event non-STEMI Patient family had refused any further intervention at that time Upon today's arrival the patient's EKG was significantly abnormal Previous EKG is printed and contact was made with cardiology specialty who saw the patient in the hospital recently It was felt that the patient's EKG appeared similar to his previous and further catheterization intervention| diverted Allergies: Coded Allergies: No Known Allergies (Unverified , 8/19/18) Past Medical History: Hx Cardiac Problems: CAD, recent STEMI Hx Hypertension: Yes Hx COPD: Yes Hx Diabetes: Yes Hx Cancer: No Hx Gastrointestinal Problems: No Hx Neurological Problems: No Hx Tuberculosis: Yes ROS: All Other Systems: limited - Other than the ones mentioned in the history of present illness all others are reviewed however they do stay limited due to the patient's mental status Diagnostic Impression: Primary Impression: NSTEMI (non-ST elevated myocardial infarction) Additional Impression: Hypotension Patient presented for hypotension. The differential diagnosis included wasn't limited to myocardial infarction, aortic dissection, sepsis, dehydration among others.Because of complexity of patient's case laboratory testing and imaging studies were ordered. The EKG was noted to have evidence of markedness to depression in the lateral leads. Patient is a fairly complex patient with multiple differential to consideration including but not limited to cardiac cardiopulmonary and vascular emergencies Patient has extensive and significant medical history Troponin levels again returned elevated Patient's EKG is reviewed with cardiology at bedside It is felt that the EKG shows some similar findings to previous And therefore cardiac catheterization was not emergently required Patient's blood pressure has done better with acute intervention Patient requiring higher level of care admission continued care Labs Test 01/07/18 15:15 White Blood Count 4.7 K/UL (4.8-10.8) Red Blood Count 2.45 M/UL (4.70-6.10) Hemoglobin 7.9 G/DL (14.2-18.0) Hematocrit 24.9 % (42.0-52.0) Mean Corpuscular Volume 101 FL (80-99) Mean Corpuscular Hemoglobin 32.4 PG (27.0-31.0) Mean Corpuscular Hemoglobin Concent 32.0 G/DL (32.0-36.0) Red Cell Distribution Width 15.9 % (11.6-14.8) Platelet Count 286 K/UL (150-450) Mean Platelet Volume 5.3 FL (6.5-10.1) Neutrophils (%) (Auto) 74.8 % (45.0-75.0) Lymphocytes (%) (Auto) 13.0 % (20.0-45.0) Monocytes (%) (Auto) 7.9 % (1.0-10.0) Eosinophils (%) (Auto) 2.9 % (0.0-3.0) Basophils (%) (Auto) 1.3 % (0.0-2.0) Prothrombin Time 11.3 SEC (9.30-11.50) Prothromb Time International Ratio 1.1 (0.9-1.1) Activated Partial Thromboplast Time 28 SEC (23-33) Sodium Level 143 MMOL/L (136-145) Potassium Level 3.6 MMOL/L (3.5-5.1) Chloride Level 109 MMOL/L (98-107) Carbon Dioxide Level 30 MMOL/L (21-32) Anion Gap 4 mmol/L (5-15) Blood Urea Nitrogen 31 mg/dL (7-18) Creatinine 0.7 MG/DL (0.55-1.30) Estimat Glomerular Filtration Rate mL/min (>60) Glucose Level 142 MG/DL (74-106) Calcium Level 8.4 MG/DL (8.5-10.1) Total Bilirubin 0.4 MG/DL (0.2-1.0) Aspartate Amino Transf (AST/SGOT) 26 U/L (15-37) Alanine Aminotransferase (ALT/SGPT) 19 U/L (12-78) Alkaline Phosphatase 88 U/L (46-116) Total Creatine Kinase 61 U/L (26-308) Creatine Kinase MB 2.8 NG/ML (0.0-3.6) Creatine Kinase MB Relative Index 4.5 Troponin I 3.757 ng/mL (0.000-0.056) Pro-B-Type Natriuretic Peptide 9091 pg/mL (0-125) Total Protein 5.9 G/DL (6.4-8.2) Albumin 2.3 G/DL (3.4-5.0) Globulin 3.6 g/dL Albumin/Globulin Ratio 0.6 (1.0-2.7) Lipase 99 U/L (73-393) EKG: Rate: normal Rhythm: NSR ST Segments: other - Mild changes in the V1 and V2, ST segment mild elevation, V4 V5 ST segment depression Subjective ROS Limited/Unobtainable: No Allergies: Coded Allergies: No Known Allergies (Unverified , 12/17/17) Objective Last 24 Hour Vital Signs Date Time Temp Pulse Resp B/P (MAP) Pulse Ox O2 Delivery O2 Flow Rate FiO2 01/08/18 21:00 87 103/54 01/08/18 20:00 97.6 87 20 103/54 (70) 97 97.6 01/08/18 20:00 Room Air 01/08/18 19:06 108 01/08/18 16:00 80 01/08/18 16:00 Room Air 01/08/18 16:00 98.4 81 20 109/59 (76) 97 98.4 01/08/18 12:00 Room Air 01/08/18 12:00 74 01/08/18 12:00 97.8 75 20 110/61 (77) 99 97.8 01/08/18 08:00 88 01/08/18 08:00 Room Air 01/08/18 08:00 97.4 86 18 99/50 (66) 96 97.4 01/08/18 05:50 103/54 01/08/18 04:00 69 67 01/08/18 04:00 67 01/08/18 04:00 97.3 67 16 103/54 (70) 100 97.3 01/08/18 04:00 Room Air 01/08/18 00:00 97.3 72 16 83/41 (55) 98 97.3 01/08/18 00:00 75 01/08/18 00:00 Room Air 01/07/18 21:55 91/51 Intake and Output 01/07/18 01/08/18 19:00 07:00 Intake Total 500 ml 400 ml Output Total 275 ml Balance 500 ml 125 ml Intake Oral 0 ml 150 ml IV Total 500 ml Blood Product 250 ml Output Urine Total 275 ml Microbiology Date/Time Source Procedure Growth Status 01/07/18 16:00 Rectum Received Laboratory Tests 01/08/18 04:35: White Blood Count 4.3L, Red Blood Count 2.76L, Hemoglobin 9.3L, Hematocrit 27.3L , Mean Corpuscular Volume 99, Mean Corpuscular Hemoglobin 33.6H, Mean Corpuscular Hemoglobin Concent 34.1, Red Cell Distribution Width 15.7H, Platelet Count 248, Mean Platelet Volume 5.3L, Neutrophils (%) (Auto) 71.4, Lymphocytes (%) (Auto) 12.5L, Monocytes (%) (Auto) 9.5, Eosinophils (%) (Auto) 5.1H, Basophils (%) (Auto) 1.5, Sodium Level 142, Potassium Level 3.6, Chloride Level 109H, Carbon Dioxide Level 28, Anion Gap 5, Blood Urea Nitrogen 30H, Creatinine 0.5L, Estimat Glomerular Filtration Rate , Glucose Level 107H, Hemoglobin A1c 5.7, Calcium Level 8.1L, Magnesium Level 1.8, Troponin I 4.005H, Pro-B-Type Natriuretic Peptide 6403H, Thyroid Stimulating Hormone (TSH) 1.101 Current Medications Medications (Trade) Dose Ordered Sig/Christy Route PRN Reason Start Time Stop Time Status Last Admin Dose Admin Acetaminophen (Tylenol) 650 mg Q4H PRN ORAL Mild Pain/Temp > 100.5 01/07/18 18:45 02/06/18 18:44 Acetaminophen/ Codeine Phosphate (Tylenol #3) 2 tab Q6H PRN ORAL Pain Scale (6-10) 01/07/18 20:00 01/14/18 19:59 Aspirin (Ecotrin) 81 mg DAILY ORAL 01/09/18 09:00 02/08/18 08:59 Atorvastatin Calcium (Lipitor) 20 mg BEDTIME ORAL 01/07/18 21:00 02/06/18 20:59 01/08/18 20:45 Clopidogrel Bisulfate (Plavix) 75 mg DAILY ORAL 01/08/18 09:00 02/07/18 08:59 01/08/18 09:44 Dextrose (Dextrose 50%) 25 ml STAT PRN IV Hypoglycemia 01/07/18 19:45 02/06/18 19:44 Dextrose (Dextrose 50%) 50 ml STAT PRN IV Hypoglycemia 01/07/18 19:45 02/06/18 19:44 Escitalopram Oxalate (Lexapro) 10 mg DAILY ORAL 01/09/18 09:00 02/08/18 08:59 Ethambutol HCl (Myambutol) 800 mg DAILY ORAL 01/07/18 20:30 02/06/18 20:29 01/08/18 09:44 Heparin Sodium (Porcine) (Heparin 5000 units/ml) 5,000 units EVERY 12 HOURS SUBQ 01/07/18 21:00 02/06/18 20:59 01/08/18 20:45 Insulin Aspart (NovoLOG) BEFORE MEALS AND HS SUBQ 01/07/18 21:00 02/06/18 20:59 01/08/18 21:15 Isoniazid (Inh) 300 mg DAILY ORAL 01/07/18 20:30 02/06/18 20:29 01/08/18 09:44 Metoprolol Tartrate (Lopressor) 12.5 mg Q12HR ORAL 01/08/18 21:00 02/07/18 20:59 Olanzapine (ZyPREXA) 2.5 mg BEDTIME ORAL 01/08/18 21:00 02/07/18 20:59 01/08/18 20:46 Ondansetron HCl (Zofran) 4 mg Q6H PRN IVP Nausea & Vomiting 01/07/18 20:00 02/06/18 19:59 Pantoprazole (Protonix) 40 mg EVERY 12 HOURS ORAL 01/07/18 21:00 02/06/18 20:59 01/08/18 20:46 Pyrazinamide (Pza) 1,000 mg DAILY ORAL 01/07/18 20:30 02/06/18 20:29 01/08/18 09:45 Pyridoxine HCl (Vitamin B6) 50 mg DAILY ORAL 01/07/18 20:30 02/06/18 20:29 01/08/18 09:44 Rifampin (Rifadin) 450 mg DAILY ORAL 01/07/18 20:30 02/06/18 20:29 01/08/18 09:45 Corwin Vyas MD Jan 08, 2018 21:43"
[2018-01-09] VITALS: BP 104/54
[2018-01-09 04:00] VITALS: BP 115/62
[2018-01-09 04:53] LABS: BASOPHILS % (AUTO) 1.6 % (0.0-2.0); EOSINOPHILS % (AUTO) 3.1 % (0.0-3.0); HEMATOCRIT 34.9 % (42.0-52.0); HEMOGLOBIN 11.9 G/DL (14.2-18.0); LYMPHOCYTES % (AUTO) 6.5 % (20.0-45.0); MEAN CORPUSCULAR VOLUME 99 FL (80-99); MONOCYTES % (AUTO) 6.1 % (1.0-10.0); NEUTROPHILS % (AUTO) 82.6 % (45.0-75.0); PLATELET COUNT 276 K/UL (150-450); RED BLOOD COUNT 3.54 M/UL (4.70-6.10); RED CELL DISTRIBUTION WIDTH 15.3 % (11.6-14.8); WHITE BLOOD COUNT 6.1 K/UL (4.8-10.8)
[2018-01-09 05:01] LABS: ANION GAP 5 mmol/L (5-15); BLOOD UREA NITROGEN 22 mg/dL (7-18); CALCIUM 8.6 MG/DL (8.5-10.1); CARBON DIOXIDE 27 MMOL/L (21-32); CHLORIDE 105 MMOL/L (98-107); CREATININE 0.5 MG/DL (0.55-1.30); SODIUM 137 MMOL/L (136-145)
[2018-01-09] MEDS: NovoLOG Insulin Flexpen SUBQ SCH ×4 (06:30→21:15)
[2018-01-09 07:54] VITALS: BP 123/71
[2018-01-09] MEDS: RIFAMPIN 150 MG ORAL SCH (08:16)
[2018-01-09] MEDS: Aspirin EC 81mg tab ORAL SCH (08:16)
[2018-01-09] MEDS: Pyridoxine 50mg tab ORAL SCH (08:17)
[2018-01-09] MEDS: Isoniazid 300mg tab ORAL SCH (08:17)
[2018-01-09] MEDS: Metoprolol Tartrate 12.5mg TAB ORAL SCH ×2 (08:17→21:00)
[2018-01-09] MEDS: Heparin 5000 units/ml inj SUBQ SCH ×2 (08:20→21:16)
--- NOTE | 2018-01-09 10:11 | Urology Progress Note ---
Assessment/Plan Assessment/Plan urinary retention hx now incontinence BPH hx possible neurogenic bladder hematuria monitor for voiding currently off flomax can consider resuming again later? renal fxn remains stable consider renal imaging cysto later Subjective Allergies: Coded Allergies: No Known Allergies (Unverified , 12/17/17) Subjective all noted, voiding/incontinent, condom cath Objective Last 24 Hour Vital Signs Date Time Temp Pulse Resp B/P (MAP) Pulse Ox O2 Delivery O2 Flow Rate FiO2 01/09/18 08:17 90 123/71 01/09/18 08:00 101 01/09/18 08:00 Room Air 01/09/18 07:54 97.7 90 20 123/71 (88) 99 97.7 01/09/18 04:00 97.8 80 20 115/62 (79) 97 97.8 01/09/18 04:00 87 01/09/18 04:00 Room Air 01/09/18 00:00 77 01/09/18 00:00 Room Air 01/09/18 00:00 98.1 80 20 104/54 (71) 97 98.1 01/08/18 21:00 87 103/54 01/08/18 20:00 97.6 87 20 103/54 (70) 97 97.6 01/08/18 20:00 Room Air 01/08/18 19:06 108 01/08/18 16:00 80 01/08/18 16:00 Room Air 01/08/18 16:00 98.4 81 20 109/59 (76) 97 98.4 01/08/18 12:00 Room Air 01/08/18 12:00 74 01/08/18 12:00 97.8 75 20 110/61 (77) 99 97.8 Intake and Output 01/08/18 01/09/18 19:00 07:00 Intake Total 540 ml 350 ml Output Total 360 ml 450 ml Balance 180 ml -100 ml Intake Oral 540 ml 50 ml IV Total 300 ml Output Urine Total 360 ml 450 ml Microbiology Date/Time Source Procedure Growth Status 01/07/18 16:00 Rectum Received Current Medications Medications (Trade) Dose Ordered Sig/Christy Route PRN Reason Start Time Stop Time Status Last Admin Dose Admin Acetaminophen (Tylenol) 650 mg Q4H PRN ORAL Mild Pain/Temp > 100.5 01/07/18 18:45 02/06/18 18:44 Acetaminophen/ Codeine Phosphate (Tylenol #3) 2 tab Q6H PRN ORAL Pain Scale (6-10) 01/07/18 20:00 01/14/18 19:59 Aspirin (Ecotrin) 81 mg DAILY ORAL 01/09/18 09:00 02/08/18 08:59 01/09/18 08:16 Atorvastatin Calcium (Lipitor) 20 mg BEDTIME ORAL 01/07/18 21:00 02/06/18 20:59 01/08/18 20:45 Clopidogrel Bisulfate (Plavix) 75 mg DAILY ORAL 01/08/18 09:00 02/07/18 08:59 01/09/18 08:17 Dextrose (Dextrose 50%) 25 ml STAT PRN IV Hypoglycemia 01/07/18 19:45 02/06/18 19:44 Dextrose (Dextrose 50%) 50 ml STAT PRN IV Hypoglycemia 01/07/18 19:45 02/06/18 19:44 Escitalopram Oxalate (Lexapro) 10 mg DAILY ORAL 01/09/18 09:00 02/08/18 08:59 01/09/18 08:17 Ethambutol HCl (Myambutol) 800 mg DAILY ORAL 01/07/18 20:30 02/06/18 20:29 01/09/18 08:16 Heparin Sodium (Porcine) (Heparin 5000 units/ml) 5,000 units EVERY 12 HOURS SUBQ 01/07/18 21:00 02/06/18 20:59 01/09/18 08:20 Insulin Aspart (NovoLOG) BEFORE MEALS AND HS SUBQ 01/07/18 21:00 02/06/18 20:59 01/08/18 21:15 Isoniazid (Inh) 300 mg DAILY ORAL 01/07/18 20:30 02/06/18 20:29 01/09/18 08:17 Metoprolol Tartrate (Lopressor) 12.5 mg Q12HR ORAL 01/08/18 21:00 02/07/18 20:59 01/09/18 08:17 Olanzapine (ZyPREXA) 2.5 mg BEDTIME ORAL 01/08/18 21:00 02/07/18 20:59 01/08/18 20:46 Ondansetron HCl (Zofran) 4 mg Q6H PRN IVP Nausea & Vomiting 01/07/18 20:00 10/9/18 19:59 Pantoprazole (Protonix) 40 mg EVERY 12 HOURS ORAL 01/07/18 21:00 02/06/18 20:59 01/09/18 08:16 Pyrazinamide (Pza) 1,000 mg DAILY ORAL 01/07/18 20:30 02/06/18 20:29 01/09/18 08:16 Pyridoxine HCl (Vitamin B6) 50 mg DAILY ORAL 01/07/18 20:30 02/06/18 20:29 01/09/18 08:17 Rifampin (Rifadin) 450 mg DAILY ORAL 01/07/18 20:30 02/06/18 20:29 01/09/18 08:16 Laboratory Tests 01/09/18 04:00: White Blood Count 6.1, Red Blood Count 3.54L, Hemoglobin 11.9L, Hematocrit 34.9L , Mean Corpuscular Volume 99, Mean Corpuscular Hemoglobin 33.6H, Mean Corpuscular Hemoglobin Concent 34.0, Red Cell Distribution Width 15.3H, Platelet Count 276, Mean Platelet Volume 6.0L, Neutrophils (%) (Auto) 82.6H, Lymphocytes (%) (Auto) 6.5L, Monocytes (%) (Auto) 6.1, Eosinophils (%) (Auto) 3.1H, Basophils (%) (Auto) 1.6, Sodium Level 137, Potassium Level 5.0, Chloride Level 105, Carbon Dioxide Level 27, Anion Gap 5, Blood Urea Nitrogen 22H, Creatinine 0.5L, Estimat Glomerular Filtration Rate , Glucose Level 81, Calcium Level 8.6, Magnesium Level 2.0, Troponin I 2.849H, Pro-B-Type Natriuretic Peptide 5978H Height (Feet): 5 Height (Inches): 5.00 Weight (Pounds): 70 Objective exam stable, condom cath with yellow/romana urine/slightly blood-tinged BAMSHAD,SAMM Jan 09, 2018 10:11
--- NOTE | 2018-01-09 10:58 | Infectious Diseases Prog Note ---
Assessment/Plan Assessment/Plan antibiotics : isoniazid, rifampin, pyrazinamide, ethambutol, pyridoxine A patient was dc recently and readmitted, ID has been reconsulted 1. pulmonary tuberculosis 2. COPD 3. bronchiectasis 4. diabetes mellitus 5. hypertension 6. MA P 1. continue isoniazid, rifampin, pyrazinamide, ethambutol, pyridoxine 2. LFT 3. blood culture 4. UA and urine culture 5. will follow up cultures Subjective ROS Limited/Unobtainable: Yes Allergies: Coded Allergies: No Known Allergies (Unverified , 12/17/17) Objective Vital Signs Last 24 Hour Vital Signs Date Time Temp Pulse Resp B/P (MAP) Pulse Ox O2 Delivery O2 Flow Rate FiO2 01/09/18 08:17 90 123/71 01/09/18 08:00 101 01/09/18 08:00 Room Air 01/09/18 07:54 97.7 90 20 123/71 (88) 99 97.7 01/09/18 04:00 97.8 80 20 115/62 (79) 97 97.8 01/09/18 04:00 87 01/09/18 04:00 Room Air 01/09/18 00:00 77 01/09/18 00:00 Room Air 01/09/18 00:00 98.1 80 20 104/54 (71) 97 98.1 01/08/18 21:00 87 103/54 01/08/18 20:00 97.6 87 20 103/54 (70) 97 97.6 01/08/18 20:00 Room Air 01/08/18 19:06 108 01/08/18 16:00 80 01/08/18 16:00 Room Air 01/08/18 16:00 98.4 81 20 109/59 (76) 97 98.4 01/08/18 12:00 Room Air 01/08/18 12:00 74 01/08/18 12:00 97.8 75 20 110/61 (77) 99 97.8 Height (Feet): 5 Height (Inches): 5.00 Weight (Pounds): 70 Microbiology Date/Time Source Procedure Growth Status 01/07/18 16:00 Rectum Received Laboratory Tests Test 01/09/18 04:00 White Blood Count 6.1 K/UL (4.8-10.8) Red Blood Count 3.54 M/UL (4.70-6.10) L Hemoglobin 11.9 G/DL (14.2-18.0) L Hematocrit 34.9 % (42.0-52.0) L Mean Corpuscular Volume 99 FL (80-99) Mean Corpuscular Hemoglobin 33.6 PG (27.0-31.0) H Mean Corpuscular Hemoglobin Concent 34.0 G/DL (32.0-36.0) Red Cell Distribution Width 15.3 % (11.6-14.8) H Platelet Count 276 K/UL (150-450) Mean Platelet Volume 6.0 FL (6.5-10.1) L Neutrophils (%) (Auto) 82.6 % (45.0-75.0) H Lymphocytes (%) (Auto) 6.5 % (20.0-45.0) L Monocytes (%) (Auto) 6.1 % (1.0-10.0) Eosinophils (%) (Auto) 3.1 % (0.0-3.0) H Basophils (%) (Auto) 1.6 % (0.0-2.0) Sodium Level 137 MMOL/L (136-145) Potassium Level 5.0 MMOL/L (3.5-5.1) Chloride Level 105 MMOL/L (98-107) Carbon Dioxide Level 27 MMOL/L (21-32) Anion Gap 5 mmol/L (5-15) Blood Urea Nitrogen 22 mg/dL (7-18) H Creatinine 0.5 MG/DL (0.55-1.30) L Estimat Glomerular Filtration Rate mL/min (>60) Glucose Level 81 MG/DL (74-106) Calcium Level 8.6 MG/DL (8.5-10.1) Magnesium Level 2.0 MG/DL (1.8-2.4) Troponin I 2.849 ng/mL (0.000-0.056) Pro-B-Type Natriuretic Peptide 5978 pg/mL (0-125) H Current Medications Medications (Trade) Dose Ordered Sig/Christy Route PRN Reason Start Time Stop Time Status Last Admin Dose Admin Acetaminophen (Tylenol) 650 mg Q4H PRN ORAL Mild Pain/Temp > 100.5 01/07/18 18:45 02/06/18 18:44 Acetaminophen/ Codeine Phosphate (Tylenol #3) 2 tab Q6H PRN ORAL Pain Scale (6-10) 01/07/18 20:00 01/14/18 19:59 Aspirin (Ecotrin) 81 mg DAILY ORAL 01/09/18 09:00 02/08/18 08:59 01/09/18 08:16 Atorvastatin Calcium (Lipitor) 20 mg BEDTIME ORAL 01/07/18 21:00 02/06/18 20:59 01/08/18 20:45 Clopidogrel Bisulfate (Plavix) 75 mg DAILY ORAL 01/08/18 09:00 02/07/18 08:59 01/09/18 08:17 Dextrose (Dextrose 50%) 25 ml STAT PRN IV Hypoglycemia 01/07/18 19:45 02/06/18 19:44 Dextrose (Dextrose 50%) 50 ml STAT PRN IV Hypoglycemia 01/07/18 19:45 02/06/18 19:44 Escitalopram Oxalate (Lexapro) 10 mg DAILY ORAL 01/09/18 09:00 02/08/18 08:59 01/09/18 08:17 Ethambutol HCl (Myambutol) 800 mg DAILY ORAL 01/07/18 20:30 02/06/18 20:29 01/09/18 08:16 Heparin Sodium (Porcine) (Heparin 5000 units/ml) 5,000 units EVERY 12 HOURS SUBQ 01/07/18 21:00 02/06/18 20:59 01/09/18 08:20 Insulin Aspart (NovoLOG) BEFORE MEALS AND HS SUBQ 01/07/18 21:00 02/06/18 20:59 01/08/18 21:15 Isoniazid (Inh) 300 mg DAILY ORAL 01/07/18 20:30 02/06/18 20:29 01/09/18 08:17 Metoprolol Tartrate (Lopressor) 12.5 mg Q12HR ORAL 01/08/18 21:00 02/07/18 20:59 01/09/18 08:17 Olanzapine (ZyPREXA) 2.5 mg BEDTIME ORAL 01/08/18 21:00 02/07/18 20:59 01/08/18 20:46 Ondansetron HCl (Zofran) 4 mg Q6H PRN IVP Nausea & Vomiting 01/07/18 20:00 02/06/18 19:59 Pantoprazole (Protonix) 40 mg EVERY 12 HOURS ORAL 01/07/18 21:00 02/06/18 20:59 01/09/18 08:16 Pyrazinamide (Pza) 1,000 mg DAILY ORAL 01/07/18 20:30 02/06/18 20:29 01/09/18 08:16 Pyridoxine HCl (Vitamin B6) 50 mg DAILY ORAL 01/07/18 20:30 02/06/18 20:29 01/09/18 08:17 Rifampin (Rifadin) 450 mg DAILY ORAL 01/07/18 20:30 02/06/18 20:29 01/09/18 08:16 ROYA RODRIGUES Jan 09, 2018 10:58
[2018-01-09 11:27] LABS: ALANINE AMINOTRANSFERASE 20 U/L (12-78); ALBUMIN 2.5 G/DL (3.4-5.0); ALKALINE PHOSPHATASE 110 U/L (46-116); ASPARTATE AMINO TRANSFERASE 34 U/L (15-37); BILIRUBIN,DIRECT 0.1 MG/DL (0.0-0.3); BILIRUBIN,TOTAL 0.7 MG/DL (0.2-1.0)
[2018-01-09 11:36] VITALS: BP 105/57
[2018-01-09 12:37] LABS: APPEARANCE,URINE CLEAR; BILIRUBIN, URINE NEGATIVE (NEGATIVE); GLUCOSE, URINE (UA) 3+ (NEGATIVE); KETONES,URINE 2+ (NEGATIVE); LEUKOCYTE ESTERASE ,URINE 1+ (NEGATIVE); NITRITE,URINE NEGATIVE (NEGATIVE); PH,URINE 5 (4.5-8.0); PROTEIN,URINE NEGATIVE (NEGATIVE); UROBILINOGEN,URINE 1 MG/DL (0.0-1.0)
[2018-01-09 12:48] LABS: COLOR,URINE YELLOW
--- NOTE | 2018-01-09 15:33 | Cardiac Electrophysiology PN ---
Assessment/Plan Assessment/Plan 1. Hypotension could be due to dehydration. Better with IV fluid 2. Recent non-ST elevation myocardial infarction. Troponin still around 4 but no CP.ECG unchanged Echocardiogram showed ejection fraction 40% to 45%. On aspirin, Plavix, metoprolol, and Lipitor. Family wanted medical therapy last admission and on this admission stii refusing cardiac cath 3. Questionable tuberculosis. The patient is off respiratory isolation, was cleared by Department of Health. 4. Azotemia on IV fluid. Subjective Subjective Comfortable in NAD. No CP. Family refusing invasive procedures. Objective Last 24 Hour Vital Signs Date Time Temp Pulse Resp B/P (MAP) Pulse Ox O2 Delivery O2 Flow Rate FiO2 01/09/18 12:00 Room Air 01/09/18 12:00 83 01/09/18 11:36 98.4 76 19 105/57 (73) 96 98.4 01/09/18 08:17 90 123/71 01/09/18 08:00 101 01/09/18 08:00 Room Air 01/09/18 07:54 97.7 90 20 123/71 (88) 99 97.7 01/09/18 04:00 97.8 80 20 115/62 (79) 97 97.8 01/09/18 04:00 87 01/09/18 04:00 Room Air 01/09/18 00:00 77 01/09/18 00:00 Room Air 01/09/18 00:00 98.1 80 20 104/54 (71) 97 98.1 01/08/18 21:00 87 103/54 01/08/18 20:00 97.6 87 20 103/54 (70) 97 97.6 01/08/18 20:00 Room Air 01/08/18 19:06 108 01/08/18 16:00 80 01/08/18 16:00 Room Air 01/08/18 16:00 98.4 81 20 109/59 (76) 97 98.4 Intake and Output 01/08/18 01/09/18 19:00 07:00 Intake Total 540 ml 350 ml Output Total 360 ml 450 ml Balance 180 ml -100 ml Intake Oral 540 ml 50 ml IV Total 300 ml Output Urine Total 360 ml 450 ml Laboratory Tests Test 01/09/18 04:00 01/09/18 12:15 White Blood Count 6.1 K/UL (4.8-10.8) Red Blood Count 3.54 M/UL (4.70-6.10) L Hemoglobin 11.9 G/DL (14.2-18.0) L Hematocrit 34.9 % (42.0-52.0) L Mean Corpuscular Volume 99 FL (80-99) Mean Corpuscular Hemoglobin 33.6 PG (27.0-31.0) H Mean Corpuscular Hemoglobin Concent 34.0 G/DL (32.0-36.0) Red Cell Distribution Width 15.3 % (11.6-14.8) H Platelet Count 276 K/UL (150-450) Mean Platelet Volume 6.0 FL (6.5-10.1) L Neutrophils (%) (Auto) 82.6 % (45.0-75.0) H Lymphocytes (%) (Auto) 6.5 % (20.0-45.0) L Monocytes (%) (Auto) 6.1 % (1.0-10.0) Eosinophils (%) (Auto) 3.1 % (0.0-3.0) H Basophils (%) (Auto) 1.6 % (0.0-2.0) Sodium Level 137 MMOL/L (136-145) Potassium Level 5.0 MMOL/L (3.5-5.1) Chloride Level 105 MMOL/L (98-107) Carbon Dioxide Level 27 MMOL/L (21-32) Anion Gap 5 mmol/L (5-15) Blood Urea Nitrogen 22 mg/dL (7-18) H Creatinine 0.5 MG/DL (0.55-1.30) L Estimat Glomerular Filtration Rate mL/min (>60) Glucose Level 81 MG/DL (74-106) Calcium Level 8.6 MG/DL (8.5-10.1) Magnesium Level 2.0 MG/DL (1.8-2.4) Total Bilirubin 0.7 MG/DL (0.2-1.0) Direct Bilirubin 0.1 MG/DL (0.0-0.3) Aspartate Amino Transf (AST/SGOT) 34 U/L (15-37) Alanine Aminotransferase (ALT/SGPT) 20 U/L (12-78) Alkaline Phosphatase 110 U/L (46-116) Troponin I 2.849 ng/mL (0.000-0.056) Pro-B-Type Natriuretic Peptide 5978 pg/mL (0-125) H Total Protein 6.4 G/DL (6.4-8.2) Albumin 2.5 G/DL (3.4-5.0) L Urine Color Yellow Urine Appearance Clear Urine pH 5 (4.5-8.0) Urine Specific [place] 1.020 (1.005-1.035) Urine Protein Negative (NEGATIVE) Urine Glucose (UA) 3+ (NEGATIVE) H Urine Ketones 2+ (NEGATIVE) H Urine Blood 3+ (NEGATIVE) H Urine Nitrite Negative (NEGATIVE) Urine Bilirubin Negative (NEGATIVE) Urine Urobilinogen 1 MG/DL (0.0-1.0) H Urine Leukocyte Esterase 1+ (NEGATIVE) H Urine RBC 5-10 /HPF (0 - 0) H Urine WBC 2-4 /HPF (0 - 0) Urine Squamous Epithelial Cells Occasional /LPF Urine Calcium Oxalate Crystals Occasional /LPF (NONE) Urine Bacteria Occasional /HPF (NONE) Urine Yeast Moderate /HPF (NONE) H Microbiology Date/Time Source Procedure Growth Status 01/07/18 16:00 Rectum Received Objective HEAD AND NECK: Showed no JVD. LUNGS: Clear. CARDIOVASCULAR: Shows regular S1 and S2 with no gallop. ABDOMEN: Soft. EXTREMITIES: No pitting edema. Domingo Swanson MD Jan 09, 2018 15:33
[2018-01-09 15:50] VITALS: BP 105/53
--- NOTE | 2018-01-09 19:47 | General Progress Note ---
Assessment/Plan Status: stable Assessment/Plan Encephalopathy due to [facility] MDD -lexapro 10mg qam -zyprexa 2.5 mg qhs Subjective Date patient seen: Jan 09, 2018 Neurologic/Psychiatric: Reports: anxiety, depressed, emotional problems Allergies: Coded Allergies: No Known Allergies (Unverified , 12/17/17) Subjective the pt is returned. cont to be depressed. Objective Last 24 Hour Vital Signs Date Time Temp Pulse Resp B/P (MAP) Pulse Ox O2 Delivery O2 Flow Rate FiO2 01/09/18 16:00 Room Air 01/09/18 15:57 77 01/09/18 15:50 98.2 78 19 105/53 (70) 97 98.2 01/09/18 12:00 Room Air 01/09/18 12:00 83 01/09/18 11:36 98.4 76 19 105/57 (73) 96 98.4 01/09/18 08:17 90 123/71 01/09/18 08:00 101 01/09/18 08:00 Room Air 01/09/18 07:54 97.7 90 20 123/71 (88) 99 97.7 01/09/18 04:00 97.8 80 20 115/62 (79) 97 97.8 01/09/18 04:00 87 01/09/18 04:00 Room Air 01/09/18 00:00 77 01/09/18 00:00 Room Air 01/09/18 00:00 98.1 80 20 104/54 (71) 97 98.1 01/08/18 21:00 87 103/54 01/08/18 20:00 97.6 87 20 103/54 (70) 97 97.6 01/08/18 20:00 Room Air Intake and Output 01/08/18 01/09/18 19:00 07:00 Intake Total 540 ml 350 ml Output Total 360 ml 450 ml Balance 180 ml -100 ml Intake Oral 540 ml 50 ml IV Total 300 ml Output Urine Total 360 ml 450 ml Laboratory Tests 01/09/18 04:00: White Blood Count 6.1, Red Blood Count 3.54L, Hemoglobin 11.9L, Hematocrit 34.9L , Mean Corpuscular Volume 99, Mean Corpuscular Hemoglobin 33.6H, Mean Corpuscular Hemoglobin Concent 34.0, Red Cell Distribution Width 15.3H, Platelet Count 276, Mean Platelet Volume 6.0L, Neutrophils (%) (Auto) 82.6H, Lymphocytes (%) (Auto) 6.5L, Monocytes (%) (Auto) 6.1, Eosinophils (%) (Auto) 3.1H, Basophils (%) (Auto) 1.6, Sodium Level 137, Potassium Level 5.0, Chloride Level 105, Carbon Dioxide Level 27, Anion Gap 5, Blood Urea Nitrogen 22H, Creatinine 0.5L, Estimat Glomerular Filtration Rate , Glucose Level 81, Calcium Level 8.6, Magnesium Level 2.0, Total Bilirubin 0.7, Direct Bilirubin 0.1, Aspartate Amino Transf (AST/SGOT) 34, Alanine Aminotransferase (ALT/SGPT) 20, Alkaline Phosphatase 110, Troponin I 2.849H, Pro-B-Type Natriuretic Peptide 5978H, Total Protein 6.4, Albumin 2.5L 01/09/18 12:15: Urine Color Yellow, Urine Appearance Clear, Urine pH 5, Urine Specific [place] 1.020, Urine Protein Negative, Urine Glucose (UA) 3+H, Urine Ketones 2+H, Urine Blood 3+H, Urine Nitrite Negative, Urine Bilirubin Negative, Urine Urobilinogen 1H, Urine Leukocyte Esterase 1+H, Urine RBC 5-10H, Urine WBC 2-4, Urine Squamous Epithelial Cells Occasional, Urine Calcium Oxalate Crystals Occasional , Urine Bacteria Occasional, Urine Yeast ModerateH 01/09/18 15:00: Stool Occult Blood [Pending] Height (Feet): 5 Height (Inches): 5.00 Weight (Pounds): 70 Neurologic: alert, responsive, depressed affect Dulce Maria Carver MD Jan 09, 2018 19:47
[2018-01-09 20:00] VITALS: BP 104/55
--- NOTE | 2018-01-09 21:10 | Cardiology Report ---
APPROVED REPORT EXAM: Two-dimensional and M-mode echocardiogram with Doppler and color Doppler. INDICATION CAD M-Mode DIMENSIONS IVSd0.9 (0.7-1.1cm)Left Atrium (MM)3.1 (1.6-4.0cm) LVDd4.6 (3.5-5.6cm)Aortic Root3.1 (2.0-3.7cm) PWd1.3 (0.7-1.1cm)Aortic Cusp Exc.1.7 (1.5-2.0cm) IVSs3.6 cm LVDs1.4 (2.5-4.0cm) Normal left ventricular chamber size. Global left ventricular wall hypokinesia with the left ventricular ejection fraction estimated to be 50%. No evidence of left ventricular hypertrophy. No evidence of pericardial effusion. All other cardiac chamber sizes are within normal limits. Focal aortic valve sclerosis with adequate cusp excursion. Thickened mitral valve leaflets with normal excursion. Mitral annulus and aortic root calcification. Pulmonic valve not well visualized. Normal tricuspid valve structure. IVC at normal size with physiologic collapse. A color flow and spectral Doppler study was performed and revealed: Mild aortic regurgitation. Mild mitral regurgitation. Mitral diastolic velocities suggest reduced left ventricular relaxation c/w mild LV diastolic dysfunction (Grade I ). Trace tricuspid regurgitation. Tricuspid systolic velocities suggests peak right ventricular systolic pressure of 24mmHg. Trace pulmonic regurgitation .
[2018-01-09] MEDS: OLANZapine 2.5mg tab ORAL SCH (21:13)
[2018-01-09] MEDS: Atorvastatin 20mg tab ORAL SCH (21:13)
--- NOTE | 2018-01-09 21:24 | Pulmonology Progress Note ---
"Assessment/Plan Assessment/Plan Pulmonary Progress Note Reason for Hospitalization: Generalized Weakness, NSTEMI Present Illness Allergies: Coded Allergies: No Known Allergies (Unverified , 12/17/17) Medication History Scheduled Atorvastatin Calcium* (Atorvastatin Calcium*), 20 MG ORAL DAILY, (Reported) Clopidogrel* (Clopidogrel*), 75 MG ORAL DAILY, (Reported) Glimepiride* (Glimepiride*), 4 MG ORAL BID, (Reported) Glipizide* (Glucotrol*), 10 MG ORAL BID, (Reported) Isosorbide Mononitrate (Isosorbide Mononitrate Er), 60 MG PO DAILY, (Reported) Lisinopril (Lisinopril*), 20 MG ORAL DAILY, (Reported) Metformin Hcl* (Metformin Hcl*), 1,000 MG ORAL BID, (Reported) Potassium Chloride (Potassium Chloride), 8 MEQ PO DAILY, (Reported) Patient History Healthcare decision maker Resuscitation status Advanced Directive on File Physical Exam General Appearance: no apparent distress Lines, tubes and drains: peripheral HEENT: normocephalic, atraumatic, EOMI, pharynx normal Neck: non-tender, normal inspection Respiratory/Chest: lungs clear Cardiovascular/Chest: normal peripheral pulses, normal rate, regular rhythm, no JVD Abdomen: non tender, soft, no organomegaly Extremities: normal range of motion Last 24 Hour Vital Signs Date Time Temp Pulse Resp B/P (MAP) Pulse Ox O2 Delivery O2 Flow Rate FiO2 01/07/18 17:34 96.8 66 18 101/55 (70) 98 96.8 01/07/18 17:27 98.9 85 18 103/57 98 Room Air 98.9 01/07/18 16:28 98.9 85 18 103/57 98 Room Air 98.9 01/07/18 16:21 71 103/57 72 101/43 01/07/18 14:33 99.0 16 90/40 97 Room Air 99.0 01/07/18 13:50 99.0 80 16 90/40 97 Room Air 99.0 Intake and Output 01/06/18 01/07/18 19:00 07:00 # Bowel Movements 1 Laboratory Tests RAY Chest 1v Indication: Chest pain Technique: One view of the chest Comparison: 12/17/2017 Findings: Extensive calcific pleural and parenchymal scarring is again demonstrated at the left lung base. Extensive parenchymal scarring is seen in the left infrahilar and suprahilar regions. The right lung and pleural space remain clear. The heart size is normal. The aorta is calcified. Findings are unchanged Impression: Extensive chronic appearing changes, as described, stable since 12/17/2017. No definite acute process Test 01/07/18 15:15 White Blood Count 4.7 K/UL (4.8-10.8) L Red Blood Count 2.45 M/UL (4.70-6.10) L Hemoglobin 7.9 G/DL (14.2-18.0) L Hematocrit 24.9 % (42.0-52.0) L Mean Corpuscular Volume 101 FL (80-99) H Mean Corpuscular Hemoglobin 32.4 PG (27.0-31.0) H Mean Corpuscular Hemoglobin Concent 32.0 G/DL (32.0-36.0) Red Cell Distribution Width 15.9 % (11.6-14.8) H Platelet Count 286 K/UL (150-450) Mean Platelet Volume 5.3 FL (6.5-10.1) L Neutrophils (%) (Auto) 74.8 % (45.0-75.0) Lymphocytes (%) (Auto) 13.0 % (20.0-45.0) L Monocytes (%) (Auto) 7.9 % (1.0-10.0) Eosinophils (%) (Auto) 2.9 % (0.0-3.0) Basophils (%) (Auto) 1.3 % (0.0-2.0) Prothrombin Time 11.3 SEC (9.30-11.50) Prothromb Time International Ratio 1.1 (0.9-1.1) Activated Partial Thromboplast Time 28 SEC (23-33) Sodium Level 143 MMOL/L (136-145) Potassium Level 3.6 MMOL/L (3.5-5.1) Chloride Level 109 MMOL/L (98-107) H Carbon Dioxide Level 30 MMOL/L (21-32) Anion Gap 4 mmol/L (5-15) L Blood Urea Nitrogen 31 mg/dL (7-18) H Creatinine 0.7 MG/DL (0.55-1.30) Estimat Glomerular Filtration Rate mL/min (>60) Glucose Level 142 MG/DL (74-106) H Calcium Level 8.4 MG/DL (8.5-10.1) L Total Bilirubin 0.4 MG/DL (0.2-1.0) Aspartate Amino Transf (AST/SGOT) 26 U/L (15-37) Alanine Aminotransferase (ALT/SGPT) 19 U/L (12-78) Alkaline Phosphatase 88 U/L (46-116) Total Creatine Kinase 61 U/L (26-308) Creatine Kinase MB 2.8 NG/ML (0.0-3.6) Creatine Kinase MB Relative Index 4.5 Troponin I 3.757 ng/mL (0.000-0.056) Pro-B-Type Natriuretic Peptide 9091 pg/mL (0-125) H Total Protein 5.9 G/DL (6.4-8.2) L Albumin 2.3 G/DL (3.4-5.0) L Globulin 3.6 g/dL Albumin/Globulin Ratio 0.6 (1.0-2.7) L Lipase 99 U/L (73-393) Height (Feet): 5 Height (Inches): 5.00 Weight (Pounds): 70 Objective Narrative Sp02 EP Interpretation: reviewed, normal General Appearance: normal inspection, alert, cachetic, thin, Chronically Ill 98% on 2 L which is a normal percentage Sp02 EP Interpretation: normal General Appearance: mild distress - Patient appears frail Head: normocephalic, atraumatic Eyes: bilateral eye PERRL ENT: dry mucus membranes Neck: supple Respiratory: no respiratory distress, no retraction, crackles Cardiovascular #1: regular rate, rhythm, no edema Gastrointestinal: non tender, soft, no mass Musculoskeletal: normal inspection Neurologic: alert, responsive Skin: no rash Assessment/Plan Status: stable Status Narrative HPI Patient is a 77-year-old male brought in by EMS after the patient was noted to have decreased blood pressure. Patient was reportedly the noted to have prior history of type had type 2 diabetes and hypertension. Patient was noted be hypotensive by EMS. The patient was noted to be poorly verbal.The patient had recently discharged from the hospital. The patient was noted to have a recent myocardial infarction.Patient denies any chest pain at this time. Additionally speaking with a Georgian trading assistant patient denies any chest pain Was reportedly sent to the emergency room with reports of low blood pressure Patient had a complicated medical stay and history including tuberculosis on 4 drug anti TB treatment Also cardiac event non-STEMI Patient family had refused any further intervention at that time Upon today's arrival the patient's EKG was significantly abnormal Previous EKG is printed and contact was made with cardiology specialty who saw the patient in the hospital recently It was felt that the patient's EKG appeared similar to his previous and further catheterization intervention| diverted Allergies: Coded Allergies: No Known Allergies (Unverified , 12/17/17) Past Medical History: Hx Cardiac Problems: CAD, recent STEMI Hx Hypertension: Yes Hx COPD: Yes Hx Diabetes: Yes Hx Cancer: No Hx Gastrointestinal Problems: No Hx Neurological Problems: No Hx Tuberculosis: Yes ROS: All Other Systems: limited - Other than the ones mentioned in the history of present illness all others are reviewed however they do stay limited due to the patient's mental status Diagnostic Impression: Primary Impression: NSTEMI (non-ST elevated myocardial infarction) Additional Impression: Hypotension Patient presented for hypotension. The differential diagnosis included wasn't limited to myocardial infarction, aortic dissection, sepsis, dehydration among others.Because of complexity of patient's case laboratory testing and imaging studies were ordered. The EKG was noted to have evidence of markedness to depression in the lateral leads. Patient is a fairly complex patient with multiple differential to consideration including but not limited to cardiac cardiopulmonary and vascular emergencies Patient has extensive and significant medical history Troponin levels again returned elevated Patient's EKG is reviewed with cardiology at bedside It is felt that the EKG shows some similar findings to previous And therefore cardiac catheterization was not emergently required Patient's blood pressure has done better with acute intervention Patient requiring higher level of care admission continued care Labs Test 01/07/18 15:15 White Blood Count 4.7 K/UL (4.8-10.8) Red Blood Count 2.45 M/UL (4.70-6.10) Hemoglobin 7.9 G/DL (14.2-18.0) Hematocrit 24.9 % (42.0-52.0) Mean Corpuscular Volume 101 FL (80-99) Mean Corpuscular Hemoglobin 32.4 PG (27.0-31.0) Mean Corpuscular Hemoglobin Concent 32.0 G/DL (32.0-36.0) Red Cell Distribution Width 15.9 % (11.6-14.8) Platelet Count 286 K/UL (150-450) Mean Platelet Volume 5.3 FL (6.5-10.1) Neutrophils (%) (Auto) 74.8 % (45.0-75.0) Lymphocytes (%) (Auto) 13.0 % (20.0-45.0) Monocytes (%) (Auto) 7.9 % (1.0-10.0) Eosinophils (%) (Auto) 2.9 % (0.0-3.0) Basophils (%) (Auto) 1.3 % (0.0-2.0) Prothrombin Time 11.3 SEC (9.30-11.50) Prothromb Time International Ratio 1.1 (0.9-1.1) Activated Partial Thromboplast Time 28 SEC (23-33) Sodium Level 143 MMOL/L (136-145) Potassium Level 3.6 MMOL/L (3.5-5.1) Chloride Level 109 MMOL/L (98-107) Carbon Dioxide Level 30 MMOL/L (21-32) Anion Gap 4 mmol/L (5-15) Blood Urea Nitrogen 31 mg/dL (7-18) Creatinine 0.7 MG/DL (0.55-1.30) Estimat Glomerular Filtration Rate mL/min (>60) Glucose Level 142 MG/DL (74-106) Calcium Level 8.4 MG/DL (8.5-10.1) Total Bilirubin 0.4 MG/DL (0.2-1.0) Aspartate Amino Transf (AST/SGOT) 26 U/L (15-37) Alanine Aminotransferase (ALT/SGPT) 19 U/L (12-78) Alkaline Phosphatase 88 U/L (46-116) Total Creatine Kinase 61 U/L (26-308) Creatine Kinase MB 2.8 NG/ML (0.0-3.6) Creatine Kinase MB Relative Index 4.5 Troponin I 3.757 ng/mL (0.000-0.056) Pro-B-Type Natriuretic Peptide 9091 pg/mL (0-125) Total Protein 5.9 G/DL (6.4-8.2) Albumin 2.3 G/DL (3.4-5.0) Globulin 3.6 g/dL Albumin/Globulin Ratio 0.6 (1.0-2.7) Lipase 99 U/L (73-393) EKG: Rate: normal Rhythm: NSR ST Segments: other - Mild changes in the V1 and V2, ST segment mild elevation, V4 V5 ST segment depression Subjective ROS Limited/Unobtainable: No Allergies: Coded Allergies: No Known Allergies (Unverified , 12/17/17) Objective Last 24 Hour Vital Signs Date Time Temp Pulse Resp B/P (MAP) Pulse Ox O2 Delivery O2 Flow Rate FiO2 01/09/18 21:00 80 102/55 01/09/18 20:00 Room Air 01/09/18 20:00 98.2 80 19 104/55 (71) 97 98.2 01/09/18 16:00 Room Air 01/09/18 15:57 77 01/09/18 15:50 98.2 78 19 105/53 (70) 97 98.2 01/09/18 12:00 Room Air 01/09/18 12:00 83 01/09/18 11:36 98.4 76 19 105/57 (73) 96 98.4 01/09/18 08:17 90 123/71 01/09/18 08:00 101 01/09/18 08:00 Room Air 01/09/18 07:54 97.7 90 20 123/71 (88) 99 97.7 01/09/18 04:00 97.8 80 20 115/62 (79) 97 97.8 01/09/18 04:00 87 01/09/18 04:00 Room Air 01/09/18 00:00 77 01/09/18 00:00 Room Air 01/09/18 00:00 98.1 80 20 104/54 (71) 97 98.1 Intake and Output 01/08/18 01/09/18 19:00 07:00 Intake Total 540 ml 350 ml Output Total 360 ml 450 ml Balance 180 ml -100 ml Intake Oral 540 ml 50 ml IV Total 300 ml Output Urine Total 360 ml 450 ml Microbiology Date/Time Source Procedure Growth Status 01/07/18 16:00 Rectum Received Laboratory Tests 01/09/18 04:00: White Blood Count 6.1, Red Blood Count 3.54L, Hemoglobin 11.9L, Hematocrit 34.9L , Mean Corpuscular Volume 99, Mean Corpuscular Hemoglobin 33.6H, Mean Corpuscular Hemoglobin Concent 34.0, Red Cell Distribution Width 15.3H, Platelet Count 276, Mean Platelet Volume 6.0L, Neutrophils (%) (Auto) 82.6H, Lymphocytes (%) (Auto) 6.5L, Monocytes (%) (Auto) 6.1, Eosinophils (%) (Auto) 3.1H, Basophils (%) (Auto) 1.6, Sodium Level 137, Potassium Level 5.0, Chloride Level 105, Carbon Dioxide Level 27, Anion Gap 5, Blood Urea Nitrogen 22H, Creatinine 0.5L, Estimat Glomerular Filtration Rate , Glucose Level 81, Calcium Level 8.6, Magnesium Level 2.0, Total Bilirubin 0.7, Direct Bilirubin 0.1, Aspartate Amino Transf (AST/SGOT) 34, Alanine Aminotransferase (ALT/SGPT) 20, Alkaline Phosphatase 110, Troponin I 2.849H, Pro-B-Type Natriuretic Peptide 5978H, Total Protein 6.4, Albumin 2.5L 01/09/18 12:15: Urine Color Yellow, Urine Appearance Clear, Urine pH 5, Urine Specific [place] 1.020, Urine Protein Negative, Urine Glucose (UA) 3+H, Urine Ketones 2+H, Urine Blood 3+H, Urine Nitrite Negative, Urine Bilirubin Negative, Urine Urobilinogen 1H, Urine Leukocyte Esterase 1+H, Urine RBC 5-10H, Urine WBC 2-4, Urine Squamous Epithelial Cells Occasional, Urine Calcium Oxalate Crystals Occasional , Urine Bacteria Occasional, Urine Yeast ModerateH 01/09/18 15:00: Stool Occult Blood [Pending] Current Medications Medications (Trade) Dose Ordered Sig/Christy Route PRN Reason Start Time Stop Time Status Last Admin Dose Admin Acetaminophen (Tylenol) 650 mg Q4H PRN ORAL Mild Pain/Temp > 100.5 01/07/18 18:45 02/06/18 18:44 Acetaminophen/ Codeine Phosphate (Tylenol #3) 2 tab Q6H PRN ORAL Pain Scale (6-10) 01/07/18 20:00 01/14/18 19:59 Aspirin (Ecotrin) 81 mg DAILY ORAL 01/09/18 09:00 02/08/18 08:59 01/09/18 08:16 Atorvastatin Calcium (Lipitor) 20 mg BEDTIME ORAL 01/07/18 21:00 02/06/18 20:59 01/09/18 21:13 Clopidogrel Bisulfate (Plavix) 75 mg DAILY ORAL 01/08/18 09:00 02/07/18 08:59 01/09/18 08:17 Dextrose (Dextrose 50%) 25 ml STAT PRN IV Hypoglycemia 01/07/18 19:45 02/06/18 19:44 Dextrose (Dextrose 50%) 50 ml STAT PRN IV Hypoglycemia 01/07/18 19:45 02/06/18 19:44 Escitalopram Oxalate (Lexapro) 10 mg DAILY ORAL 01/09/18 09:00 02/08/18 08:59 01/09/18 08:17 Ethambutol HCl (Myambutol) 800 mg DAILY ORAL 01/07/18 20:30 02/06/18 20:29 01/09/18 08:16 Heparin Sodium (Porcine) (Heparin 5000 units/ml) 5,000 units EVERY 12 HOURS SUBQ 01/07/18 21:00 02/06/18 20:59 01/09/18 21:16 Insulin Aspart (NovoLOG) BEFORE MEALS AND HS SUBQ 01/07/18 21:00 02/06/18 20:59 01/09/18 21:15 Isoniazid (Inh) 300 mg DAILY ORAL 01/07/18 20:30 02/06/18 20:29 01/09/18 08:17 Metoprolol Tartrate (Lopressor) 12.5 mg Q12HR ORAL 01/08/18 21:00 02/07/18 20:59 01/09/18 08:17 Olanzapine (ZyPREXA) 2.5 mg BEDTIME ORAL 01/08/18 21:00 02/07/18 20:59 01/09/18 21:13 Ondansetron HCl (Zofran) 4 mg Q6H PRN IVP Nausea & Vomiting 01/07/18 20:00 02/06/18 19:59 Pantoprazole (Protonix) 40 mg EVERY 12 HOURS ORAL 01/07/18 21:00 02/06/18 20:59 01/09/18 21:13 Pyrazinamide (Pza) 1,000 mg DAILY ORAL 01/07/18 20:30 02/06/18 20:29 01/09/18 08:16 Pyridoxine HCl (Vitamin B6) 50 mg DAILY ORAL 01/07/18 20:30 02/06/18 20:29 01/09/18 08:17 Rifampin (Rifadin) 450 mg DAILY ORAL 01/07/18 20:30 02/06/18 20:29 01/09/18 08:16 Corwin Vyas MD Jan 09, 2018 21:24"
--- NOTE | 2018-01-09 21:26 | Cardiology Report ---
APPROVED REPORT EKG Measurement Heart [id number] SC [id number] Normal sinus rhythm Abnormal ECG
--- NOTE | 2018-01-09 21:30 | Cardiology Report ---
APPROVED REPORT EKG Measurement Heart [id number] NM [id number] [id number] Normal sinus rhythm Abnormal ECG
[2018-01-10] VITALS: BP 104/56
[2018-01-10 04:00] VITALS: BP 115/62
[2018-01-10 04:31] LABS: EOSINOPHILS % (AUTO) 4.2 % (0.0-3.0); HEMOGLOBIN 12.7 G/DL (14.2-18.0); LYMPHOCYTES % (AUTO) 8.5 % (20.0-45.0); MEAN CORPUSCULAR VOLUME 99 FL (80-99); MONOCYTES % (AUTO) 6.2 % (1.0-10.0); NEUTROPHILS % (AUTO) 79.1 % (45.0-75.0); PLATELET COUNT 287 K/UL (150-450); RED BLOOD COUNT 3.74 M/UL (4.70-6.10); WHITE BLOOD COUNT 6.4 K/UL (4.8-10.8)
[2018-01-10 05:02] LABS: ANION GAP 5 mmol/L (5-15); BLOOD UREA NITROGEN 25 mg/dL (7-18); CALCIUM 8.6 MG/DL (8.5-10.1); CARBON DIOXIDE 29 MMOL/L (21-32); CHLORIDE 102 MMOL/L (98-107); CREATININE 0.5 MG/DL (0.55-1.30); POTASSIUM 3.8 MMOL/L (3.5-5.1); SODIUM 136 MMOL/L (136-145)
[2018-01-10] MEDS: NovoLOG Insulin Flexpen SUBQ SCH ×4 (06:35→20:04)
--- NOTE | 2018-01-10 07:44 | Urology Progress Note ---
Assessment/Plan Assessment/Plan urinary retention hx now incontinence BPH hx possible neurogenic bladder hematuria monitor for voiding currently off flomax BP better, can consider resuming again later? renal fxn remains stable consider renal imaging cysto later Subjective Allergies: Coded Allergies: No Known Allergies (Unverified , 12/17/17) Subjective all noted, voiding/incontinent, condom cath Objective Last 24 Hour Vital Signs Date Time Temp Pulse Resp B/P (MAP) Pulse Ox O2 Delivery O2 Flow Rate FiO2 01/10/18 04:00 98.2 83 19 115/62 (79) 97 98.2 01/10/18 04:00 83 01/10/18 04:00 Room Air 01/10/18 00:00 80 01/10/18 00:00 98.1 73 19 104/56 (72) 97 98.1 01/10/18 00:00 Room Air 01/09/18 21:00 80 102/55 01/09/18 20:00 Room Air 01/09/18 20:00 98.2 80 19 104/55 (71) 97 98.2 01/09/18 20:00 85 01/09/18 16:00 Room Air 01/09/18 15:57 77 01/09/18 15:50 98.2 78 19 105/53 (70) 97 98.2 01/09/18 12:00 Room Air 01/09/18 12:00 83 01/09/18 11:36 98.4 76 19 105/57 (73) 96 98.4 01/09/18 08:17 90 123/71 01/09/18 08:00 101 01/09/18 08:00 Room Air 01/09/18 07:54 97.7 90 20 123/71 (88) 99 97.7 Intake and Output 01/09/18 01/10/18 19:00 07:00 Intake Total 700 ml 50 ml Output Total 500 ml 300 ml Balance 200 ml -250 ml Intake Oral 700 ml 50 ml Output Urine Total 500 ml 300 ml # Bowel Movements 1 1 Microbiology Date/Time Source Procedure Growth Status 01/07/18 16:00 Rectum Received Current Medications Medications (Trade) Dose Ordered Sig/Christy Route PRN Reason Start Time Stop Time Status Last Admin Dose Admin Acetaminophen (Tylenol) 650 mg Q4H PRN ORAL Mild Pain/Temp > 100.5 01/07/18 18:45 02/06/18 18:44 Acetaminophen/ Codeine Phosphate (Tylenol #3) 2 tab Q6H PRN ORAL Pain Scale (6-10) 01/07/18 20:00 01/14/18 19:59 Aspirin (Ecotrin) 81 mg DAILY ORAL 01/09/18 09:00 02/08/18 08:59 01/09/18 08:16 Atorvastatin Calcium (Lipitor) 20 mg BEDTIME ORAL 01/07/18 21:00 02/06/18 20:59 01/09/18 21:13 Clopidogrel Bisulfate (Plavix) 75 mg DAILY ORAL 01/08/18 09:00 02/07/18 08:59 01/09/18 08:17 Dextrose (Dextrose 50%) 25 ml STAT PRN IV Hypoglycemia 01/07/18 19:45 02/06/18 19:44 Dextrose (Dextrose 50%) 50 ml STAT PRN IV Hypoglycemia 01/07/18 19:45 02/06/18 19:44 Escitalopram Oxalate (Lexapro) 10 mg DAILY ORAL 01/09/18 09:00 02/08/18 08:59 01/09/18 08:17 Ethambutol HCl (Myambutol) 800 mg DAILY ORAL 01/07/18 20:30 02/06/18 20:29 01/09/18 08:16 Heparin Sodium (Porcine) (Heparin 5000 units/ml) 5,000 units EVERY 12 HOURS SUBQ 01/07/18 21:00 02/06/18 20:59 01/09/18 21:16 Insulin Aspart (NovoLOG) BEFORE MEALS AND HS SUBQ 01/07/18 21:00 02/06/18 20:59 01/10/18 06:35 Isoniazid (Inh) 300 mg DAILY ORAL 01/07/18 20:30 02/06/18 20:29 01/09/18 08:17 Metoprolol Tartrate (Lopressor) 12.5 mg Q12HR ORAL 01/08/18 21:00 02/07/18 20:59 01/09/18 08:17 Olanzapine (ZyPREXA) 2.5 mg BEDTIME ORAL 01/08/18 21:00 02/07/18 20:59 01/09/18 21:13 Ondansetron HCl (Zofran) 4 mg Q6H PRN IVP Nausea & Vomiting 01/07/18 20:00 02/06/18 19:59 Pantoprazole (Protonix) 40 mg EVERY 12 HOURS ORAL 01/07/18 21:00 02/06/18 20:59 01/09/18 21:13 Pyrazinamide (Pza) 1,000 mg DAILY ORAL 01/07/18 20:30 02/06/18 20:29 01/09/18 08:16 Pyridoxine HCl (Vitamin B6) 50 mg DAILY ORAL 01/07/18 20:30 02/06/18 20:29 01/09/18 08:17 Rifampin (Rifadin) 450 mg DAILY ORAL 01/07/18 20:30 02/06/18 20:29 01/09/18 08:16 Laboratory Tests 01/09/18 12:15: Urine Color Yellow, Urine Appearance Clear, Urine pH 5, Urine Specific [place] 1.020, Urine Protein Negative, Urine Glucose (UA) 3+H, Urine Ketones 2+H, Urine Blood 3+H, Urine Nitrite Negative, Urine Bilirubin Negative, Urine Urobilinogen 1H, Urine Leukocyte Esterase 1+H, Urine RBC 5-10H, Urine WBC 2-4, Urine Squamous Epithelial Cells Occasional, Urine Calcium Oxalate Crystals Occasional , Urine Bacteria Occasional, Urine Yeast ModerateH 01/09/18 15:00: Stool Occult Blood [Pending] 01/10/18 04:00: White Blood Count 6.4, Red Blood Count 3.74L, Hemoglobin 12.7L, Hematocrit 37.0L , Mean Corpuscular Volume 99, Mean Corpuscular Hemoglobin 33.8H, Mean Corpuscular Hemoglobin Concent 34.2, Red Cell Distribution Width 15.0H, Platelet Count 287, Mean Platelet Volume 5.6L, Neutrophils (%) (Auto) 79.1H, Lymphocytes (%) (Auto) 8.5L, Monocytes (%) (Auto) 6.2, Eosinophils (%) (Auto) 4.2H, Basophils (%) (Auto) 2.0, Sodium Level 136, Potassium Level 3.8, Chloride Level 102, Carbon Dioxide Level 29, Anion Gap 5, Blood Urea Nitrogen 25H, Creatinine 0.5L, Estimat Glomerular Filtration Rate , Glucose Level 91, Calcium Level 8.6, Pro-B-Type Natriuretic Peptide 28110U Height (Feet): 5 Height (Inches): 5.00 Weight (Pounds): 89 Objective exam stable, condom cath with yellow/romana urine/slightly blood-tinged SAMM RASHID Jan 10, 2018 07:44
[2018-01-10 08:00] VITALS: BP 94/51
[2018-01-10] MEDS: Aspirin EC 81mg tab ORAL SCH (08:38)
[2018-01-10] MEDS: Pyridoxine 50mg tab ORAL SCH (08:39)
[2018-01-10] MEDS: Isoniazid 300mg tab ORAL SCH (08:39)
[2018-01-10] MEDS: Heparin 5000 units/ml inj SUBQ SCH ×2 (08:40→20:05)
[2018-01-10] MEDS: Metoprolol Tartrate 12.5mg TAB ORAL SCH ×2 (08:40→20:03)
[2018-01-10] MEDS: RIFAMPIN 150 MG ORAL SCH (08:40)
[2018-01-10 12:00] VITALS: BP 101/50
[2018-01-10] MEDS ORDERED: Furosemide 40mg tab ORAL SCH (13:00)
--- NOTE | 2018-01-10 13:17 | Cardiac Electrophysiology PN ---
Assessment/Plan Assessment/Plan 1. Hypotension could be due to dehydration. Better with IV fluid 2. Recent non-ST elevation myocardial infarction. Troponin around 4 but no CP.ECG unchanged Echocardiogram showed ejection fraction 40% to 45%. On aspirin, Plavix, metoprolol, and Lipitor. Family wanted medical therapy last admission and on this admission still refusing cardiac cath 3. Questionable tuberculosis. The patient is off respiratory isolation, was cleared by Department of Health. 4. Azotemia on IV fluid. Subjective Subjective Comfortable in NAD. No CP or SOB. Objective Last 24 Hour Vital Signs Date Time Temp Pulse Resp B/P (MAP) Pulse Ox O2 Delivery O2 Flow Rate FiO2 01/10/18 12:00 97.9 82 17 101/50 (67) 97 97.9 01/10/18 12:00 Room Air 01/10/18 12:00 95 01/10/18 09:00 88 01/10/18 08:40 94 94/51 01/10/18 08:00 97.7 94 18 94/51 (65) 98 97.7 01/10/18 08:00 Room Air 01/10/18 04:00 98.2 83 19 115/62 (79) 97 98.2 01/10/18 04:00 83 01/10/18 04:00 Room Air 01/10/18 00:00 80 01/10/18 00:00 98.1 73 19 104/56 (72) 97 98.1 01/10/18 00:00 Room Air 01/09/18 21:00 80 102/55 01/09/18 20:00 Room Air 01/09/18 20:00 98.2 80 19 104/55 (71) 97 98.2 01/09/18 20:00 85 01/09/18 16:00 Room Air 01/09/18 15:57 77 01/09/18 15:50 98.2 78 19 105/53 (70) 97 98.2 Intake and Output 01/09/18 01/10/18 19:00 07:00 Intake Total 700 ml 50 ml Output Total 500 ml 300 ml Balance 200 ml -250 ml Intake Oral 700 ml 50 ml Output Urine Total 500 ml 300 ml # Bowel Movements 1 1 Laboratory Tests Test 01/09/18 15:00 01/10/18 04:00 Stool Occult Blood Negative (NEGATIVE) White Blood Count 6.4 K/UL (4.8-10.8) Red Blood Count 3.74 M/UL (4.70-6.10) L Hemoglobin 12.7 G/DL (14.2-18.0) L Hematocrit 37.0 % (42.0-52.0) L Mean Corpuscular Volume 99 FL (80-99) Mean Corpuscular Hemoglobin 33.8 PG (27.0-31.0) H Mean Corpuscular Hemoglobin Concent 34.2 G/DL (32.0-36.0) Red Cell Distribution Width 15.0 % (11.6-14.8) H Platelet Count 287 K/UL (150-450) Mean Platelet Volume 5.6 FL (6.5-10.1) L Neutrophils (%) (Auto) 79.1 % (45.0-75.0) H Lymphocytes (%) (Auto) 8.5 % (20.0-45.0) L Monocytes (%) (Auto) 6.2 % (1.0-10.0) Eosinophils (%) (Auto) 4.2 % (0.0-3.0) H Basophils (%) (Auto) 2.0 % (0.0-2.0) Sodium Level 136 MMOL/L (136-145) Potassium Level 3.8 MMOL/L (3.5-5.1) Chloride Level 102 MMOL/L (98-107) Carbon Dioxide Level 29 MMOL/L (21-32) Anion Gap 5 mmol/L (5-15) Blood Urea Nitrogen 25 mg/dL (7-18) H Creatinine 0.5 MG/DL (0.55-1.30) L Estimat Glomerular Filtration Rate mL/min (>60) Glucose Level 91 MG/DL (74-106) Calcium Level 8.6 MG/DL (8.5-10.1) Pro-B-Type Natriuretic Peptide 82970 pg/mL (0-125) H Microbiology Date/Time Source Procedure Growth Status 01/07/18 16:00 Nasal Nares MRSA Culture - Final NO METHICILLIN RESISTANT STAPH AUREUS... Complete 01/09/18 12:15 Urine,Clean Catch Urine Culture - Preliminary Gram Negative Bacillus 1 Resulted 01/08/18 16:05 Rectum - Final NO CARBAPENEM-RESISTANT ENTEROBACTERI... Complete 01/07/18 16:00 Rectum VRE Culture - Final NO VANCOMYCIN RESISTANT ENTEROCOCCUS ... Complete Objective HEAD AND NECK: No JVD. LUNGS: Clear. CARDIOVASCULAR: Regular S1 and S2 with no gallop. ABDOMEN: Soft. EXTREMITIES: No pitting edema. Domingo Swanson MD Jan 10, 2018 13:17
--- NOTE | 2018-01-10 15:01 | Pulmonology Progress Note ---
"Assessment/Plan Assessment/Plan Pulmonary Progress Note Reason for Hospitalization: Generalized Weakness, NSTEMI Still refusing cardiac catheterization, no new complaints Present Illness Allergies: Coded Allergies: No Known Allergies (Unverified , 12/17/17) Medication History Scheduled Atorvastatin Calcium* (Atorvastatin Calcium*), 20 MG ORAL DAILY, (Reported) Clopidogrel* (Clopidogrel*), 75 MG ORAL DAILY, (Reported) Glimepiride* (Glimepiride*), 4 MG ORAL BID, (Reported) Glipizide* (Glucotrol*), 10 MG ORAL BID, (Reported) Isosorbide Mononitrate (Isosorbide Mononitrate Er), 60 MG PO DAILY, (Reported) Lisinopril (Lisinopril*), 20 MG ORAL DAILY, (Reported) Metformin Hcl* (Metformin Hcl*), 1,000 MG ORAL BID, (Reported) Potassium Chloride (Potassium Chloride), 8 MEQ PO DAILY, (Reported) Patient History Healthcare decision maker Resuscitation status Advanced Directive on File Physical Exam General Appearance: no apparent distress Lines, tubes and drains: peripheral HEENT: normocephalic, atraumatic, EOMI, pharynx normal Neck: non-tender, normal inspection Respiratory/Chest: lungs clear Cardiovascular/Chest: normal peripheral pulses, normal rate, regular rhythm, no JVD Abdomen: non tender, soft, no organomegaly Extremities: normal range of motion Last 24 Hour Vital Signs Date Time Temp Pulse Resp B/P (MAP) Pulse Ox O2 Delivery O2 Flow Rate FiO2 01/07/18 17:34 96.8 66 18 101/55 (70) 98 96.8 01/07/18 17:27 98.9 85 18 103/57 98 Room Air 98.9 01/07/18 16:28 98.9 85 18 103/57 98 Room Air 98.9 01/07/18 16:21 71 103/57 72 101/43 01/07/18 14:33 99.0 16 90/40 97 Room Air 99.0 01/07/18 13:50 99.0 80 16 90/40 97 Room Air 99.0 Intake and Output 01/06/18 01/07/18 19:00 07:00 # Bowel Movements 1 Laboratory Tests RAY Chest 1v Indication: Chest pain Technique: One view of the chest Comparison: 12/17/2017 Findings: Extensive calcific pleural and parenchymal scarring is again demonstrated at the left lung base. Extensive parenchymal scarring is seen in the left infrahilar and suprahilar regions. The right lung and pleural space remain clear. The heart size is normal. The aorta is calcified. Findings are unchanged Impression: Extensive chronic appearing changes, as described, stable since 12/17/2017. No definite acute process Test 01/07/18 15:15 White Blood Count 4.7 K/UL (4.8-10.8) L Red Blood Count 2.45 M/UL (4.70-6.10) L Hemoglobin 7.9 G/DL (14.2-18.0) L Hematocrit 24.9 % (42.0-52.0) L Mean Corpuscular Volume 101 FL (80-99) H Mean Corpuscular Hemoglobin 32.4 PG (27.0-31.0) H Mean Corpuscular Hemoglobin Concent 32.0 G/DL (32.0-36.0) Red Cell Distribution Width 15.9 % (11.6-14.8) H Platelet Count 286 K/UL (150-450) Mean Platelet Volume 5.3 FL (6.5-10.1) L Neutrophils (%) (Auto) 74.8 % (45.0-75.0) Lymphocytes (%) (Auto) 13.0 % (20.0-45.0) L Monocytes (%) (Auto) 7.9 % (1.0-10.0) Eosinophils (%) (Auto) 2.9 % (0.0-3.0) Basophils (%) (Auto) 1.3 % (0.0-2.0) Prothrombin Time 11.3 SEC (9.30-11.50) Prothromb Time International Ratio 1.1 (0.9-1.1) Activated Partial Thromboplast Time 28 SEC (23-33) Sodium Level 143 MMOL/L (136-145) Potassium Level 3.6 MMOL/L (3.5-5.1) Chloride Level 109 MMOL/L (98-107) H Carbon Dioxide Level 30 MMOL/L (21-32) Anion Gap 4 mmol/L (5-15) L Blood Urea Nitrogen 31 mg/dL (7-18) H Creatinine 0.7 MG/DL (0.55-1.30) Estimat Glomerular Filtration Rate mL/min (>60) Glucose Level 142 MG/DL (74-106) H Calcium Level 8.4 MG/DL (8.5-10.1) L Total Bilirubin 0.4 MG/DL (0.2-1.0) Aspartate Amino Transf (AST/SGOT) 26 U/L (15-37) Alanine Aminotransferase (ALT/SGPT) 19 U/L (12-78) Alkaline Phosphatase 88 U/L (46-116) Total Creatine Kinase 61 U/L (26-308) Creatine Kinase MB 2.8 NG/ML (0.0-3.6) Creatine Kinase MB Relative Index 4.5 Troponin I 3.757 ng/mL (0.000-0.056) Pro-B-Type Natriuretic Peptide 9091 pg/mL (0-125) H Total Protein 5.9 G/DL (6.4-8.2) L Albumin 2.3 G/DL (3.4-5.0) L Globulin 3.6 g/dL Albumin/Globulin Ratio 0.6 (1.0-2.7) L Lipase 99 U/L (73-393) Height (Feet): 5 Height (Inches): 5.00 Weight (Pounds): 70 Objective Narrative Sp02 EP Interpretation: reviewed, normal General Appearance: normal inspection, alert, cachetic, thin, Chronically Ill 98% on 2 L which is a normal percentage Sp02 EP Interpretation: normal General Appearance: mild distress - Patient appears frail Head: normocephalic, atraumatic Eyes: bilateral eye PERRL ENT: dry mucus membranes Neck: supple Respiratory: no respiratory distress, no retraction, crackles Cardiovascular #1: regular rate, rhythm, no edema Gastrointestinal: non tender, soft, no mass Musculoskeletal: normal inspection Neurologic: alert, responsive Skin: no rash Assessment/Plan Status: stable Status Narrative HPI Patient is a 77-year-old male brought in by EMS after the patient was noted to have decreased blood pressure. Patient was reportedly the noted to have prior history of type had type 2 diabetes and hypertension. Patient was noted be hypotensive by EMS. The patient was noted to be poorly verbal.The patient had recently discharged from the hospital. The patient was noted to have a recent myocardial infarction.Patient denies any chest pain at this time. 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 patient denies any chest pain Was reportedly sent to the emergency room with reports of low blood pressure Patient had a complicated medical stay and history including tuberculosis on 4 drug anti TB treatment Also cardiac event non-STEMI Patient family had refused any further intervention at that time Upon today's arrival the patient's EKG was significantly abnormal Previous EKG is printed and contact was made with cardiology specialty who saw the patient in the hospital recently It was felt that the patient's EKG appeared similar to his previous and further catheterization intervention| diverted Allergies: Coded Allergies: No Known Allergies (Unverified , 12/17/17) Past Medical History: Hx Cardiac Problems: CAD, recent STEMI Hx Hypertension: Yes Hx COPD: Yes Hx Diabetes: Yes Hx Cancer: No Hx Gastrointestinal Problems: No Hx Neurological Problems: No Hx Tuberculosis: Yes ROS: All Other Systems: limited - Other than the ones mentioned in the history of present illness all others are reviewed however they do stay limited due to the patient's mental status Diagnostic Impression: Primary Impression: NSTEMI (non-ST elevated myocardial infarction) Additional Impression: Hypotension Patient presented for hypotension. The differential diagnosis included wasn't limited to myocardial infarction, aortic dissection, sepsis, dehydration among others.Because of complexity of patient's case laboratory testing and imaging studies were ordered. The EKG was noted to have evidence of markedness to depression in the lateral leads. Patient is a fairly complex patient with multiple differential to consideration including but not limited to cardiac cardiopulmonary and vascular emergencies Patient has extensive and significant medical history Troponin levels again returned elevated Patient's EKG is reviewed with cardiology at bedside It is felt that the EKG shows some similar findings to previous And therefore cardiac catheterization was not emergently required Patient's blood pressure has done better with acute intervention Patient requiring higher level of care admission continued care Labs Test 01/07/18 15:15 White Blood Count 4.7 K/UL (4.8-10.8) Red Blood Count 2.45 M/UL (4.70-6.10) Hemoglobin 7.9 G/DL (14.2-18.0) Hematocrit 24.9 % (42.0-52.0) Mean Corpuscular Volume 101 FL (80-99) Mean Corpuscular Hemoglobin 32.4 PG (27.0-31.0) Mean Corpuscular Hemoglobin Concent 32.0 G/DL (32.0-36.0) Red Cell Distribution Width 15.9 % (11.6-14.8) Platelet Count 286 K/UL (150-450) Mean Platelet Volume 5.3 FL (6.5-10.1) Neutrophils (%) (Auto) 74.8 % (45.0-75.0) Lymphocytes (%) (Auto) 13.0 % (20.0-45.0) Monocytes (%) (Auto) 7.9 % (1.0-10.0) Eosinophils (%) (Auto) 2.9 % (0.0-3.0) Basophils (%) (Auto) 1.3 % (0.0-2.0) Prothrombin Time 11.3 SEC (9.30-11.50) Prothromb Time International Ratio 1.1 (0.9-1.1) Activated Partial Thromboplast Time 28 SEC (23-33) Sodium Level 143 MMOL/L (136-145) Potassium Level 3.6 MMOL/L (3.5-5.1) Chloride Level 109 MMOL/L (98-107) Carbon Dioxide Level 30 MMOL/L (21-32) Anion Gap 4 mmol/L (5-15) Blood Urea Nitrogen 31 mg/dL (7-18) Creatinine 0.7 MG/DL (0.55-1.30) Estimat Glomerular Filtration Rate mL/min (>60) Glucose Level 142 MG/DL (74-106) Calcium Level 8.4 MG/DL (8.5-10.1) Total Bilirubin 0.4 MG/DL (0.2-1.0) Aspartate Amino Transf (AST/SGOT) 26 U/L (15-37) Alanine Aminotransferase (ALT/SGPT) 19 U/L (12-78) Alkaline Phosphatase 88 U/L (46-116) Total Creatine Kinase 61 U/L (26-308) Creatine Kinase MB 2.8 NG/ML (0.0-3.6) Creatine Kinase MB Relative Index 4.5 Troponin I 3.757 ng/mL (0.000-0.056) Pro-B-Type Natriuretic Peptide 9091 pg/mL (0-125) Total Protein 5.9 G/DL (6.4-8.2) Albumin 2.3 G/DL (3.4-5.0) Globulin 3.6 g/dL Albumin/Globulin Ratio 0.6 (1.0-2.7) Lipase 99 U/L (73-393) EKG: Rate: normal Rhythm: NSR ST Segments: other - Mild changes in the V1 and V2, ST segment mild elevation, V4 V5 ST segment depression Subjective ROS Limited/Unobtainable: No Allergies: Coded Allergies: No Known Allergies (Unverified , 12/17/17) Objective Last 24 Hour Vital Signs Date Time Temp Pulse Resp B/P (MAP) Pulse Ox O2 Delivery O2 Flow Rate FiO2 01/10/18 12:00 97.9 82 17 101/50 (67) 97 97.9 01/10/18 12:00 Room Air 01/10/18 12:00 95 01/10/18 09:00 88 01/10/18 08:40 94 94/51 01/10/18 08:00 97.7 94 18 94/51 (65) 98 97.7 01/10/18 08:00 Room Air 01/10/18 04:00 98.2 83 19 115/62 (79) 97 98.2 01/10/18 04:00 83 01/10/18 04:00 Room Air 01/10/18 00:00 80 01/10/18 00:00 98.1 73 19 104/56 (72) 97 98.1 01/10/18 00:00 Room Air 01/09/18 21:00 80 102/55 01/09/18 20:00 Room Air 01/09/18 20:00 98.2 80 19 104/55 (71) 97 98.2 01/09/18 20:00 85 01/09/18 16:00 Room Air 01/09/18 15:57 77 01/09/18 15:50 98.2 78 19 105/53 (70) 97 98.2 Intake and Output 01/09/18 01/10/18 19:00 07:00 Intake Total 700 ml 50 ml Output Total 500 ml 300 ml Balance 200 ml -250 ml Intake Oral 700 ml 50 ml Output Urine Total 500 ml 300 ml # Bowel Movements 1 1 Microbiology Date/Time Source Procedure Growth Status 01/07/18 16:00 Nasal Nares MRSA Culture - Final NO METHICILLIN RESISTANT STAPH AUREUS... Complete 01/09/18 12:15 Urine,Clean Catch Urine Culture - Preliminary Gram Negative Bacillus 1 Resulted 01/08/18 16:05 Rectum - Final NO CARBAPENEM-RESISTANT ENTEROBACTERI... Complete 01/07/18 16:00 Rectum VRE Culture - Final NO VANCOMYCIN RESISTANT ENTEROCOCCUS ... Complete Laboratory Tests 01/10/18 04:00: White Blood Count 6.4, Red Blood Count 3.74L, Hemoglobin 12.7L, Hematocrit 37.0L , Mean Corpuscular Volume 99, Mean Corpuscular Hemoglobin 33.8H, Mean Corpuscular Hemoglobin Concent 34.2, Red Cell Distribution Width 15.0H, Platelet Count 287, Mean Platelet Volume 5.6L, Neutrophils (%) (Auto) 79.1H, Lymphocytes (%) (Auto) 8.5L, Monocytes (%) (Auto) 6.2, Eosinophils (%) (Auto) 4.2H, Basophils (%) (Auto) 2.0, Sodium Level 136, Potassium Level 3.8, Chloride Level 102, Carbon Dioxide Level 29, Anion Gap 5, Blood Urea Nitrogen 25H, Creatinine 0.5L, Estimat Glomerular Filtration Rate , Glucose Level 91, Calcium Level 8.6, Pro-B-Type Natriuretic Peptide 97905S Current Medications Medications (Trade) Dose Ordered Sig/Christy Route PRN Reason Start Time Stop Time Status Last Admin Dose Admin Acetaminophen (Tylenol) 650 mg Q4H PRN ORAL Mild Pain/Temp > 100.5 01/07/18 18:45 02/06/18 18:44 Acetaminophen/ Codeine Phosphate (Tylenol #3) 2 tab Q6H PRN ORAL Pain Scale (6-10) 01/07/18 20:00 01/14/18 19:59 Aspirin (Ecotrin) 81 mg DAILY ORAL 01/09/18 09:00 02/08/18 08:59 01/10/18 08:38 Atorvastatin Calcium (Lipitor) 20 mg BEDTIME ORAL 01/07/18 21:00 02/06/18 20:59 01/09/18 21:13 Clopidogrel Bisulfate (Plavix) 75 mg DAILY ORAL 01/08/18 09:00 02/07/18 08:59 01/10/18 08:39 Dextrose (Dextrose 50%) 25 ml STAT PRN IV Hypoglycemia 01/07/18 19:45 02/06/18 19:44 Dextrose (Dextrose 50%) 50 ml STAT PRN IV Hypoglycemia 01/07/18 19:45 10/9/18 19:44 Escitalopram Oxalate (Lexapro) 10 mg DAILY ORAL 01/09/18 09:00 02/08/18 08:59 01/10/18 08:39 Ethambutol HCl (Myambutol) 800 mg DAILY ORAL 01/07/18 20:30 02/06/18 20:29 01/10/18 08:40 Furosemide (Lasix) 40 mg DAILY ORAL 01/11/18 09:00 02/10/18 08:59 Heparin Sodium (Porcine) (Heparin 5000 units/ml) 5,000 units EVERY 12 HOURS SUBQ 01/07/18 21:00 02/06/18 20:59 01/10/18 08:40 Insulin Aspart (NovoLOG) BEFORE MEALS AND HS SUBQ 01/07/18 21:00 02/06/18 20:59 01/10/18 11:35 Isoniazid (Inh) 300 mg DAILY ORAL 01/07/18 20:30 02/06/18 20:29 01/10/18 08:39 Metoprolol Tartrate (Lopressor) 12.5 mg Q12HR ORAL 01/08/18 21:00 02/07/18 20:59 01/09/18 08:17 Olanzapine (ZyPREXA) 2.5 mg BEDTIME ORAL 01/08/18 21:00 02/07/18 20:59 01/09/18 21:13 Ondansetron HCl (Zofran) 4 mg Q6H PRN IVP Nausea & Vomiting 01/07/18 20:00 02/06/18 19:59 Pantoprazole (Protonix) 40 mg EVERY 12 HOURS ORAL 01/07/18 21:00 02/06/18 20:59 01/10/18 08:40 Pyrazinamide (Pza) 1,000 mg DAILY ORAL 01/07/18 20:30 02/06/18 20:29 01/10/18 08:38 Pyridoxine HCl (Vitamin B6) 50 mg DAILY ORAL 01/07/18 20:30 02/06/18 20:29 01/10/18 08:39 Rifampin (Rifadin) 450 mg DAILY ORAL 01/07/18 20:30 02/06/18 20:29 01/10/18 08:40 Corwin Vyas MD Jan 10, 2018 15:01"
[2018-01-10 16:00] VITALS: BP 117/69
--- NOTE | 2018-01-10 19:59 | General Progress Note ---
Assessment/Plan Assessment/Plan Encephalopathy due to [facility] [place] MDD -lexapro 10mg qam -zyprexa 2.5 mg qhs Subjective Date patient seen: Jan 10, 2018 Allergies: Coded Allergies: No Known Allergies (Unverified , 12/17/17) Subjective the pt is returned. cont to be depressed. Objective Last 24 Hour Vital Signs Date Time Temp Pulse Resp B/P (MAP) Pulse Ox O2 Delivery O2 Flow Rate FiO2 01/10/18 16:00 92 01/10/18 16:00 Room Air 01/10/18 16:00 97.7 85 17 117/69 (85) 97 97.7 01/10/18 12:00 97.9 82 17 101/50 (67) 97 97.9 01/10/18 12:00 Room Air 01/10/18 12:00 95 01/10/18 09:00 88 01/10/18 08:40 94 94/51 01/10/18 08:00 97.7 94 18 94/51 (65) 98 97.7 01/10/18 08:00 Room Air 01/10/18 04:00 98.2 83 19 115/62 (79) 97 98.2 01/10/18 04:00 83 01/10/18 04:00 Room Air 01/10/18 00:00 80 01/10/18 00:00 98.1 73 19 104/56 (72) 97 98.1 01/10/18 00:00 Room Air 01/09/18 21:00 80 102/55 01/09/18 20:00 Room Air 01/09/18 20:00 98.2 80 19 104/55 (71) 97 98.2 01/09/18 20:00 85 Intake and Output 01/09/18 01/10/18 19:00 07:00 Intake Total 700 ml 50 ml Output Total 500 ml 300 ml Balance 200 ml -250 ml Intake Oral 700 ml 50 ml Output Urine Total 500 ml 300 ml # Bowel Movements 1 1 Laboratory Tests 01/10/18 04:00: White Blood Count 6.4, Red Blood Count 3.74L, Hemoglobin 12.7L, Hematocrit 37.0L , Mean Corpuscular Volume 99, Mean Corpuscular Hemoglobin 33.8H, Mean Corpuscular Hemoglobin Concent 34.2, Red Cell Distribution Width 15.0H, Platelet Count 287, Mean Platelet Volume 5.6L, Neutrophils (%) (Auto) 79.1H, Lymphocytes (%) (Auto) 8.5L, Monocytes (%) (Auto) 6.2, Eosinophils (%) (Auto) 4.2H, Basophils (%) (Auto) 2.0, Sodium Level 136, Potassium Level 3.8, Chloride Level 102, Carbon Dioxide Level 29, Anion Gap 5, Blood Urea Nitrogen 25H, Creatinine 0.5L, Estimat Glomerular Filtration Rate , Glucose Level 91, Calcium Level 8.6, Pro-B-Type Natriuretic Peptide [id number] Height (Feet): 5 Height (Inches): 5.00 Weight (Pounds): 89 Dulce Maria Carver MD Jan 10, 2018 19:59
[2018-01-10 20:00] VITALS: BP 109/60
[2018-01-10] MEDS: Atorvastatin 20mg tab ORAL SCH (20:03)
[2018-01-10] MEDS: OLANZapine 2.5mg tab ORAL SCH (20:03)
[2018-01-11] VITALS: BP 114/63
[2018-01-11 04:00] VITALS: BP 118/69
[2018-01-11 05:24] LABS: BASOPHILS % (AUTO) 2.3 % (0.0-2.0); EOSINOPHILS % (AUTO) 6.2 % (0.0-3.0); HEMATOCRIT 36.2 % (42.0-52.0); HEMOGLOBIN 12.6 G/DL (14.2-18.0); LYMPHOCYTES % (AUTO) 11.3 % (20.0-45.0); MEAN CORPUSCULAR VOLUME 99 FL (80-99); MONOCYTES % (AUTO) 9.3 % (1.0-10.0); NEUTROPHILS % (AUTO) 70.9 % (45.0-75.0); PLATELET COUNT 270 K/UL (150-450); RED BLOOD COUNT 3.66 M/UL (4.70-6.10); RED CELL DISTRIBUTION WIDTH 14.9 % (11.6-14.8); WHITE BLOOD COUNT 4.6 K/UL (4.8-10.8)
[2018-01-11 05:44] LABS: ANION GAP 6 mmol/L (5-15); BLOOD UREA NITROGEN 18 mg/dL (7-18); CALCIUM 8.4 MG/DL (8.5-10.1); CARBON DIOXIDE 30 MMOL/L (21-32); CHLORIDE 101 MMOL/L (98-107); CREATININE 0.5 MG/DL (0.55-1.30); POTASSIUM 3.4 MMOL/L (3.5-5.1); SODIUM 137 MMOL/L (136-145)
[2018-01-11] MEDS: NovoLOG Insulin Flexpen SUBQ SCH ×4 (06:22→21:13)
[2018-01-11 08:00] VITALS: BP 96/56
[2018-01-11] MEDS: Metoprolol Tartrate 12.5mg TAB ORAL SCH ×2 (09:00→20:40)
[2018-01-11] MEDS ORDERED: Furosemide 40mg tab ORAL SCH (09:00)
--- NOTE | 2018-01-11 09:01 | Urology Progress Note ---
Assessment/Plan Assessment/Plan urinary retention hx now incontinence BPH hx possible neurogenic bladder hematuria monitor for voiding currently off flomax BP better, can consider resuming again later? renal fxn remains stable consider renal imaging cysto later Subjective Allergies: Coded Allergies: No Known Allergies (Unverified , 12/17/17) Subjective all noted, voiding/incontinent, condom cath Objective Last 24 Hour Vital Signs Date Time Temp Pulse Resp B/P (MAP) Pulse Ox O2 Delivery O2 Flow Rate FiO2 01/11/18 08:00 98.1 87 17 96/56 (69) 97 98.1 01/11/18 08:00 Room Air 01/11/18 04:00 88 01/11/18 04:00 Room Air 01/11/18 04:00 98.5 78 16 118/69 (85) 98 98.5 01/11/18 00:00 98.1 87 17 114/63 (80) 97 98.1 01/11/18 00:00 85 01/11/18 00:00 Room Air 01/10/18 20:03 60 109/60 01/10/18 20:00 Room Air 01/10/18 20:00 98.2 84 16 109/60 (76) 98 98.2 01/10/18 20:00 83 01/10/18 16:00 92 01/10/18 16:00 Room Air 01/10/18 16:00 97.7 85 17 117/69 (85) 97 97.7 01/10/18 12:00 97.9 82 17 101/50 (67) 97 97.9 01/10/18 12:00 Room Air 01/10/18 12:00 95 Intake and Output 01/10/18 01/11/18 19:00 07:00 Intake Total 840 ml Output Total 625 ml 850 ml Balance 215 ml -850 ml Intake Oral 840 ml Output Urine Total 625 ml 850 ml # Bowel Movements 3 Microbiology Date/Time Source Procedure Growth Status 01/09/18 11:50 Blood Blood Culture - Preliminary NO GROWTH AFTER 24 HOURS Resulted 01/07/18 16:00 Nasal Nares MRSA Culture - Final NO METHICILLIN RESISTANT STAPH AUREUS... Complete 01/09/18 12:15 Urine,Clean Catch Urine Culture - Preliminary Gram Negative Bacillus 1 Resulted 01/08/18 16:05 Rectum - Final NO CARBAPENEM-RESISTANT ENTEROBACTERI... Complete Current Medications Medications (Trade) Dose Ordered Sig/Christy Route PRN Reason Start Time Stop Time Status Last Admin Dose Admin Acetaminophen (Tylenol) 650 mg Q4H PRN ORAL Mild Pain/Temp > 100.5 01/07/18 18:45 02/06/18 18:44 Acetaminophen/ Codeine Phosphate (Tylenol #3) 2 tab Q6H PRN ORAL Pain Scale (6-10) 01/07/18 20:00 01/14/18 19:59 Aspirin (Ecotrin) 81 mg DAILY ORAL 01/09/18 09:00 02/08/18 08:59 01/10/18 08:38 Atorvastatin Calcium (Lipitor) 20 mg BEDTIME ORAL 01/07/18 21:00 02/06/18 20:59 01/10/18 20:03 Clopidogrel Bisulfate (Plavix) 75 mg DAILY ORAL 01/08/18 09:00 02/07/18 08:59 01/10/18 08:39 Dextrose (Dextrose 50%) 25 ml STAT PRN IV Hypoglycemia 01/07/18 19:45 02/06/18 19:44 Dextrose (Dextrose 50%) 50 ml STAT PRN IV Hypoglycemia 01/07/18 19:45 02/06/18 19:44 Escitalopram Oxalate (Lexapro) 10 mg DAILY ORAL 01/09/18 09:00 02/08/18 08:59 01/10/18 08:39 Ethambutol HCl (Myambutol) 800 mg DAILY ORAL 01/07/18 20:30 02/06/18 20:29 01/10/18 08:40 Furosemide (Lasix) 40 mg DAILY ORAL 01/11/18 09:00 02/10/18 08:59 Heparin Sodium (Porcine) (Heparin 5000 units/ml) 5,000 units EVERY 12 HOURS SUBQ 01/07/18 21:00 02/06/18 20:59 01/10/18 20:05 Insulin Aspart (NovoLOG) BEFORE MEALS AND HS SUBQ 01/07/18 21:00 02/06/18 20:59 01/11/18 06:22 Isoniazid (Inh) 300 mg DAILY ORAL 01/07/18 20:30 02/06/18 20:29 01/10/18 08:39 Metoprolol Tartrate (Lopressor) 12.5 mg Q12HR ORAL 01/08/18 21:00 02/07/18 20:59 01/09/18 08:17 Olanzapine (ZyPREXA) 2.5 mg BEDTIME ORAL 01/08/18 21:00 02/07/18 20:59 01/10/18 20:03 Ondansetron HCl (Zofran) 4 mg Q6H PRN IVP Nausea & Vomiting 01/07/18 20:00 02/06/18 19:59 Pantoprazole (Protonix) 40 mg EVERY 12 HOURS ORAL 01/07/18 21:00 02/06/18 20:59 01/10/18 20:02 Potassium Chloride (K-Dur) 20 meq ONCE ORAL 01/11/18 08:45 01/11/18 09:45 Pyrazinamide (Pza) 1,000 mg DAILY ORAL 01/07/18 20:30 02/06/18 20:29 01/10/18 08:38 Pyridoxine HCl (Vitamin B6) 50 mg DAILY ORAL 01/07/18 20:30 02/06/18 20:29 01/10/18 08:39 Rifampin (Rifadin) 450 mg DAILY ORAL 01/07/18 20:30 02/06/18 20:29 01/10/18 08:40 Laboratory Tests 01/11/18 04:16: White Blood Count 4.6L, Red Blood Count 3.66L, Hemoglobin 12.6L, Hematocrit 36.2L, Mean Corpuscular Volume 99, Mean Corpuscular Hemoglobin 34.4H, Mean Corpuscular Hemoglobin Concent 34.8, Red Cell Distribution Width 14.9H, Platelet Count 270, Mean Platelet Volume 5.7L, Neutrophils (%) (Auto) 70.9, Lymphocytes (%) (Auto) 11.3L, Monocytes (%) (Auto) 9.3, Eosinophils (%) (Auto) 6.2H, Basophils (%) (Auto) 2.3H, Sodium Level 137, Potassium Level 3.4L, Chloride Level 101, Carbon Dioxide Level 30, Anion Gap 6, Blood Urea Nitrogen 18 , Creatinine 0.5L, Estimat Glomerular Filtration Rate , Glucose Level 131H, Calcium Level 8.4L, Pro-B-Type Natriuretic Peptide [id number] Height (Feet): 5 Height (Inches): 5.00 Weight (Pounds): 89 Objective exam stable, condom cath with yellow/romana urine/slightly blood-tinged [email or web address] Jan 11, 2018 09:01
[2018-01-11] MEDS: Pyridoxine 50mg tab ORAL SCH (09:05)
[2018-01-11] MEDS: Isoniazid 300mg tab ORAL SCH (09:06)
[2018-01-11] MEDS: Aspirin EC 81mg tab ORAL SCH (09:06)
[2018-01-11] MEDS: RIFAMPIN 150 MG ORAL SCH (09:07)
[2018-01-11] MEDS: Heparin 5000 units/ml inj SUBQ SCH ×2 (09:08→21:12)
--- NOTE | 2018-01-11 10:43 | Cardiac Electrophysiology PN ---
Assessment/Plan Assessment/Plan 1. Hypotension due to dehydration. Better with IV fluid 2. Recent non-ST elevation myocardial infarction. Troponin around 4 but no CP.ECG unchanged Echocardiogram showed ejection fraction 40% to 45%. On aspirin, Plavix, metoprolol, and Lipitor. Family wanted medical therapy last admission and on this admission 3. Questionable tuberculosis. The patient is off respiratory isolation, was cleared by Department of Health. 4. Azotemia on IV fluid. Subjective Subjective Comfortable in NAD. No events Objective Last 24 Hour Vital Signs Date Time Temp Pulse Resp B/P (MAP) Pulse Ox O2 Delivery O2 Flow Rate FiO2 01/11/18 09:00 87 96/56 01/11/18 08:00 98.1 87 17 96/56 (69) 97 98.1 01/11/18 08:00 87 01/11/18 08:00 Room Air 01/11/18 04:00 88 01/11/18 04:00 Room Air 01/11/18 04:00 98.5 78 16 118/69 (85) 98 98.5 01/11/18 00:00 98.1 87 17 114/63 (80) 97 98.1 01/11/18 00:00 85 01/11/18 00:00 Room Air 01/10/18 20:03 60 109/60 01/10/18 20:00 Room Air 01/10/18 20:00 98.2 84 16 109/60 (76) 98 98.2 01/10/18 20:00 83 01/10/18 16:00 92 01/10/18 16:00 Room Air 01/10/18 16:00 97.7 85 17 117/69 (85) 97 97.7 01/10/18 12:00 97.9 82 17 101/50 (67) 97 97.9 01/10/18 12:00 Room Air 01/10/18 12:00 95 Intake and Output 01/10/18 01/11/18 19:00 07:00 Intake Total 840 ml Output Total 625 ml 850 ml Balance 215 ml -850 ml Intake Oral 840 ml Output Urine Total 625 ml 850 ml # Bowel Movements 3 Laboratory Tests Test 01/11/18 04:16 White Blood Count 4.6 K/UL (4.8-10.8) L Red Blood Count 3.66 M/UL (4.70-6.10) L Hemoglobin 12.6 G/DL (14.2-18.0) L Hematocrit 36.2 % (42.0-52.0) L Mean Corpuscular Volume 99 FL (80-99) Mean Corpuscular Hemoglobin 34.4 PG (27.0-31.0) H Mean Corpuscular Hemoglobin Concent 34.8 G/DL (32.0-36.0) Red Cell Distribution Width 14.9 % (11.6-14.8) H Platelet Count 270 K/UL (150-450) Mean Platelet Volume 5.7 FL (6.5-10.1) L Neutrophils (%) (Auto) 70.9 % (45.0-75.0) Lymphocytes (%) (Auto) 11.3 % (20.0-45.0) L Monocytes (%) (Auto) 9.3 % (1.0-10.0) Eosinophils (%) (Auto) 6.2 % (0.0-3.0) H Basophils (%) (Auto) 2.3 % (0.0-2.0) H Sodium Level 137 MMOL/L (136-145) Potassium Level 3.4 MMOL/L (3.5-5.1) L Chloride Level 101 MMOL/L (98-107) Carbon Dioxide Level 30 MMOL/L (21-32) Anion Gap 6 mmol/L (5-15) Blood Urea Nitrogen 18 mg/dL (7-18) Creatinine 0.5 MG/DL (0.55-1.30) L Estimat Glomerular Filtration Rate mL/min (>60) Glucose Level 131 MG/DL (74-106) H Calcium Level 8.4 MG/DL (8.5-10.1) L Pro-B-Type Natriuretic Peptide 42590 pg/mL (0-125) H Microbiology Date/Time Source Procedure Growth Status 01/09/18 11:50 Blood Blood Culture - Preliminary NO GROWTH AFTER 24 HOURS Resulted 01/09/18 12:15 Urine,Clean Catch Urine Culture - Preliminary Klebsiella Pneumoniae Yeast Species Resulted 01/08/18 16:05 Rectum - Final NO CARBAPENEM-RESISTANT ENTEROBACTERI... Complete Objective HEAD AND NECK: No JVD. LUNGS: Clear. CARDIOVASCULAR: Regular S1 and S2 with no gallop. ABDOMEN: Soft. EXTREMITIES: No pitting edema. Domingo Swanson MD Jan 11, 2018 10:43
[2018-01-11 11:22] VITALS: BP 115/65
--- NOTE | 2018-01-11 11:28 | General Progress Note ---
Assessment/Plan Status: stable, progressing Assessment/Plan Encephal[place] [facility] [place]lex[place] 10mg qam -zyprexa 2.5 mg qhs Subjective Date patient seen: Jan 11, 2018 Neurologic/Psychiatric: Reports: anxiety, depressed, emotional problems Allergies: Coded Allergies: No Known Allergies (Unverified , 12/17/17) Subjective the pt cont to be depressed. Objective Last 24 Hour Vital Signs Date Time Temp Pulse Resp B/P (MAP) Pulse Ox O2 Delivery O2 Flow Rate FiO2 01/11/18 11:22 98.2 83 18 115/65 (82) 100 98.2 01/11/18 09:00 87 96/56 01/11/18 08:00 98.1 87 17 96/56 (69) 97 98.1 01/11/18 08:00 87 01/11/18 08:00 Room Air 01/11/18 04:00 88 01/11/18 04:00 Room Air 01/11/18 04:00 98.5 78 16 118/69 (85) 98 98.5 01/11/18 00:00 98.1 87 17 114/63 (80) 97 98.1 01/11/18 00:00 85 01/11/18 00:00 Room Air 01/10/18 20:03 60 109/60 01/10/18 20:00 Room Air 01/10/18 20:00 98.2 84 16 109/60 (76) 98 98.2 01/10/18 20:00 83 01/10/18 16:00 92 01/10/18 16:00 Room Air 01/10/18 16:00 97.7 85 17 117/69 (85) 97 97.7 01/10/18 12:00 97.9 82 17 101/50 (67) 97 97.9 01/10/18 12:00 Room Air 01/10/18 12:00 95 Intake and Output 01/10/18 01/11/18 19:00 07:00 Intake Total 840 ml Output Total 625 ml 850 ml Balance 215 ml -850 ml Intake Oral 840 ml Output Urine Total 625 ml 850 ml # Bowel Movements 3 Laboratory Tests 01/11/18 04:16: White Blood Count 4.6L, Red Blood Count 3.66L, Hemoglobin 12.6L, Hematocrit 36.2L, Mean Corpuscular Volume 99, Mean Corpuscular Hemoglobin 34.4H, Mean Corpuscular Hemoglobin Concent 34.8, Red Cell Distribution Width 14.9H, Platelet Count 270, Mean Platelet Volume 5.7L, Neutrophils (%) (Auto) 70.9, Lymphocytes (%) (Auto) 11.3L, Monocytes (%) (Auto) 9.3, Eosinophils (%) (Auto) 6.2H, Basophils (%) (Auto) 2.3H, Sodium Level 137, Potassium Level 3.4L, Chloride Level 101, Carbon Dioxide Level 30, Anion Gap 6, Blood Urea Nitrogen 18 , Creatinine 0.5L, Estimat Glomerular Filtration Rate , Glucose Level 131H, Calcium Level 8.4L, Pro-B-Type Natriuretic Peptide [id number] Height (Feet): 5 Height (Inches): 5.00 Weight (Pounds): 89 General Appearance: no apparent distress, alert Neurologic: oriented x 3, responsive, depressed affect Dulce Maria Carver MD Jan 11, 2018 11:28
--- NOTE | 2018-01-11 14:05 | Pulmonology Progress Note ---
Assessment/Plan Assessment/Plan Pulmonary Progress Note Reason for Hospitalization: Generalized Weakness, NSTEMI Troponin downtrended Still refusing cardiac catheterization, no new complaints, K supplemented Present Illness Allergies: Coded Allergies: No Known Allergies (Unverified , 12/17/17) Medication History Scheduled Atorvastatin Calcium* (Atorvastatin Calcium*), 20 MG ORAL DAILY, (Reported) Clopidogrel* (Clopidogrel*), 75 MG ORAL DAILY, (Reported) Glimepiride* (Glimepiride*), 4 MG ORAL BID, (Reported) Glipizide* (Glucotrol*), 10 MG ORAL BID, (Reported) Isosorbide Mononitrate (Isosorbide Mononitrate Er), 60 MG PO DAILY, (Reported) Lisinopril (Lisinopril*), 20 MG ORAL DAILY, (Reported) Metformin Hcl* (Metformin Hcl*), 1,000 MG ORAL BID, (Reported) Potassium Chloride (Potassium Chloride), 8 MEQ PO DAILY, (Reported) Patient History Healthcare decision maker Resuscitation status Advanced Directive on File Physical Exam General Appearance: no apparent distress Lines, tubes and drains: peripheral HEENT: normocephalic, atraumatic, EOMI, pharynx normal Neck: non-tender, normal inspection Respiratory/Chest: lungs clear Cardiovascular/Chest: normal peripheral pulses, normal rate, regular rhythm, no JVD Abdomen: non tender, soft, no organomegaly Extremities: normal range of motion Last 24 Hour Vital Signs Date Time Temp Pulse Resp B/P (MAP) Pulse Ox O2 Delivery O2 Flow Rate FiO2 01/07/18 17:34 96.8 66 18 101/55 (70) 98 96.8 01/07/18 17:27 98.9 85 18 103/57 98 Room Air 98.9 01/07/18 16:28 98.9 85 18 103/57 98 Room Air 98.9 01/07/18 16:21 71 103/57 72 101/43 01/07/18 14:33 99.0 16 90/40 97 Room Air 99.0 01/07/18 13:50 99.0 80 16 90/40 97 Room Air 99.0 Intake and Output 01/06/18 01/07/18 19:00 07:00 # Bowel Movements 1 Laboratory Tests RAY Chest 1v Indication: Chest pain Technique: One view of the chest Comparison: 12/17/2017 Findings: Extensive calcific pleural and parenchymal scarring is again demonstrated at the left lung base. Extensive parenchymal scarring is seen in the left infrahilar and suprahilar regions. The right lung and pleural space remain clear. The heart size is normal. The aorta is calcified. Findings are unchanged Impression: Extensive chronic appearing changes, as described, stable since 12/17/2017. No definite acute process Test 01/07/18 15:15 White Blood Count 4.7 K/UL (4.8-10.8) L Red Blood Count 2.45 M/UL (4.70-6.10) L Hemoglobin 7.9 G/DL (14.2-18.0) L Hematocrit 24.9 % (42.0-52.0) L Mean Corpuscular Volume 101 FL (80-99) H Mean Corpuscular Hemoglobin 32.4 PG (27.0-31.0) H Mean Corpuscular Hemoglobin Concent 32.0 G/DL (32.0-36.0) Red Cell Distribution Width 15.9 % (11.6-14.8) H Platelet Count 286 K/UL (150-450) Mean Platelet Volume 5.3 FL (6.5-10.1) L Neutrophils (%) (Auto) 74.8 % (45.0-75.0) Lymphocytes (%) (Auto) 13.0 % (20.0-45.0) L Monocytes (%) (Auto) 7.9 % (1.0-10.0) Eosinophils (%) (Auto) 2.9 % (0.0-3.0) Basophils (%) (Auto) 1.3 % (0.0-2.0) Prothrombin Time 11.3 SEC (9.30-11.50) Prothromb Time International Ratio 1.1 (0.9-1.1) Activated Partial Thromboplast Time 28 SEC (23-33) Sodium Level 143 MMOL/L (136-145) Potassium Level 3.6 MMOL/L (3.5-5.1) Chloride Level 109 MMOL/L (98-107) H Carbon Dioxide Level 30 MMOL/L (21-32) Anion Gap 4 mmol/L (5-15) L Blood Urea Nitrogen 31 mg/dL (7-18) H Creatinine 0.7 MG/DL (0.55-1.30) Estimat Glomerular Filtration Rate mL/min (>60) Glucose Level 142 MG/DL (74-106) H Calcium Level 8.4 MG/DL (8.5-10.1) L Total Bilirubin 0.4 MG/DL (0.2-1.0) Aspartate Amino Transf (AST/SGOT) 26 U/L (15-37) Alanine Aminotransferase (ALT/SGPT) 19 U/L (12-78) Alkaline Phosphatase 88 U/L (46-116) Total Creatine Kinase 61 U/L (26-308) Creatine Kinase MB 2.8 NG/ML (0.0-3.6) Creatine Kinase MB Relative Index 4.5 Troponin I 3.757 ng/mL (0.000-0.056) Pro-B-Type Natriuretic Peptide 9091 pg/mL (0-125) H Total Protein 5.9 G/DL (6.4-8.2) L Albumin 2.3 G/DL (3.4-5.0) L Globulin 3.6 g/dL Albumin/Globulin Ratio 0.6 (1.0-2.7) L Lipase 99 U/L (73-393) Height (Feet): 5 Height (Inches): 5.00 Weight (Pounds): 70 Objective Narrative Sp02 EP Interpretation: reviewed, normal General Appearance: normal inspection, alert, cachetic, thin, Chronically Ill 98% on 2 L which is a normal percentage Sp02 EP Interpretation: normal General Appearance: mild distress - Patient appears frail Head: normocephalic, atraumatic Eyes: bilateral eye PERRL ENT: dry mucus membranes Neck: supple Respiratory: no respiratory distress, no retraction, crackles Cardiovascular #1: regular rate, rhythm, no edema Gastrointestinal: non tender, soft, no mass Musculoskeletal: normal inspection Neurologic: alert, responsive Skin: no rash Assessment/Plan Status: stable Status Narrative HPI Patient is a 77-year-old male brought in by EMS after the patient was noted to have decreased blood pressure. Patient was reportedly the noted to have prior history of type had type 2 diabetes and hypertension. Patient was noted be hypotensive by EMS. The patient was noted to be poorly verbal.The patient had recently discharged from the hospital. The patient was noted to have a recent myocardial infarction.Patient denies any chest pain at this time. 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 patient denies any chest pain Was reportedly sent to the emergency room with reports of low blood pressure Patient had a complicated medical stay and history including tuberculosis on 4 drug anti TB treatment Also cardiac event non-STEMI Patient family had refused any further intervention at that time Upon today's arrival the patient's EKG was significantly abnormal Previous EKG is printed and contact was made with cardiology specialty who saw the patient in the hospital recently It was felt that the patient's EKG appeared similar to his previous and further catheterization intervention refused Will need SNF placement - Croatian speaking per family request Allergies: Coded Allergies: No Known Allergies (Unverified , 12/17/17) Past Medical History: Hx Cardiac Problems: CAD, recent STEMI Hx Hypertension: Yes Hx COPD: Yes Hx Diabetes: Yes Hx Cancer: No Hx Gastrointestinal Problems: No Hx Neurological Problems: No Hx Tuberculosis: Yes ROS: All Other Systems: limited - Other than the ones mentioned in the history of present illness all others are reviewed however they do stay limited due to the patient's mental status Diagnostic Impression: Primary Impression: NSTEMI (non-ST elevated myocardial infarction) Additional Impression: Hypotension Patient presented for hypotension. The differential diagnosis included wasn't limited to myocardial infarction, aortic dissection, sepsis, dehydration among others.Because of complexity of patient's case laboratory testing and imaging studies were ordered. The EKG was noted to have evidence of markedness to depression in the lateral leads. Patient is a fairly complex patient with multiple differential to consideration including but not limited to cardiac cardiopulmonary and vascular emergencies Patient has extensive and significant medical history Troponin levels again returned elevated Patient's EKG is reviewed with cardiology at bedside It is felt that the EKG shows some similar findings to previous And therefore cardiac catheterization was not emergently required Patient's blood pressure has done better with acute intervention Patient requiring higher level of care admission continued care Labs Test 01/07/18 15:15 White Blood Count 4.7 K/UL (4.8-10.8) Red Blood Count 2.45 M/UL (4.70-6.10) Hemoglobin 7.9 G/DL (14.2-18.0) Hematocrit 24.9 % (42.0-52.0) Mean Corpuscular Volume 101 FL (80-99) Mean Corpuscular Hemoglobin 32.4 PG (27.0-31.0) Mean Corpuscular Hemoglobin Concent 32.0 G/DL (32.0-36.0) Red Cell Distribution Width 15.9 % (11.6-14.8) Platelet Count 286 K/UL (150-450) Mean Platelet Volume 5.3 FL (6.5-10.1) Neutrophils (%) (Auto) 74.8 % (45.0-75.0) Lymphocytes (%) (Auto) 13.0 % (20.0-45.0) Monocytes (%) (Auto) 7.9 % (1.0-10.0) Eosinophils (%) (Auto) 2.9 % (0.0-3.0) Basophils (%) (Auto) 1.3 % (0.0-2.0) Prothrombin Time 11.3 SEC (9.30-11.50) Prothromb Time International Ratio 1.1 (0.9-1.1) Activated Partial Thromboplast Time 28 SEC (23-33) Sodium Level 143 MMOL/L (136-145) Potassium Level 3.6 MMOL/L (3.5-5.1) Chloride Level 109 MMOL/L (98-107) Carbon Dioxide Level 30 MMOL/L (21-32) Anion Gap 4 mmol/L (5-15) Blood Urea Nitrogen 31 mg/dL (7-18) Creatinine 0.7 MG/DL (0.55-1.30) Estimat Glomerular Filtration Rate mL/min (>60) Glucose Level 142 MG/DL (74-106) Calcium Level 8.4 MG/DL (8.5-10.1) Total Bilirubin 0.4 MG/DL (0.2-1.0) Aspartate Amino Transf (AST/SGOT) 26 U/L (15-37) Alanine Aminotransferase (ALT/SGPT) 19 U/L (12-78) Alkaline Phosphatase 88 U/L (46-116) Total Creatine Kinase 61 U/L (26-308) Creatine Kinase MB 2.8 NG/ML (0.0-3.6) Creatine Kinase MB Relative Index 4.5 Troponin I 3.757 ng/mL (0.000-0.056) Pro-B-Type Natriuretic Peptide 9091 pg/mL (0-125) Total Protein 5.9 G/DL (6.4-8.2) Albumin 2.3 G/DL (3.4-5.0) Globulin 3.6 g/dL Albumin/Globulin Ratio 0.6 (1.0-2.7) Lipase 99 U/L (73-393) EKG: Rate: normal Rhythm: NSR ST Segments: other - Mild changes in the V1 and V2, ST segment mild elevation, V4 V5 ST segment depression Subjective ROS Limited/Unobtainable: No Allergies: Coded Allergies: No Known Allergies (Unverified , 12/17/17) Objective Last 24 Hour Vital Signs Date Time Temp Pulse Resp B/P (MAP) Pulse Ox O2 Delivery O2 Flow Rate FiO2 01/11/18 12:00 Room Air 01/11/18 11:22 98.2 83 18 115/65 (82) 100 98.2 01/11/18 09:00 87 96/56 01/11/18 08:00 98.1 87 17 96/56 (69) 97 98.1 01/11/18 08:00 87 01/11/18 08:00 Room Air 01/11/18 04:00 88 01/11/18 04:00 Room Air 01/11/18 04:00 98.5 78 16 118/69 (85) 98 98.5 01/11/18 00:00 98.1 87 17 114/63 (80) 97 98.1 01/11/18 00:00 85 01/11/18 00:00 Room Air 01/10/18 20:03 60 109/60 01/10/18 20:00 Room Air 01/10/18 20:00 98.2 84 16 109/60 (76) 98 98.2 01/10/18 20:00 83 01/10/18 16:00 92 01/10/18 16:00 Room Air 01/10/18 16:00 97.7 85 17 117/69 (85) 97 97.7 Intake and Output 01/10/18 01/11/18 19:00 07:00 Intake Total 840 ml Output Total 625 ml 850 ml Balance 215 ml -850 ml Intake Oral 840 ml Output Urine Total 625 ml 850 ml # Bowel Movements 3 Microbiology Date/Time Source Procedure Growth Status 01/09/18 11:50 Blood Blood Culture - Preliminary NO GROWTH AFTER 24 HOURS Resulted 01/09/18 12:15 Urine,Clean Catch Urine Culture - Preliminary Klebsiella Pneumoniae Yeast Species Resulted 01/08/18 16:05 Rectum - Final NO CARBAPENEM-RESISTANT ENTEROBACTERI... Complete Laboratory Tests 01/11/18 04:16: White Blood Count 4.6L, Red Blood Count 3.66L, Hemoglobin 12.6L, Hematocrit 36.2L, Mean Corpuscular Volume 99, Mean Corpuscular Hemoglobin 34.4H, Mean Corpuscular Hemoglobin Concent 34.8, Red Cell Distribution Width 14.9H, Platelet Count 270, Mean Platelet Volume 5.7L, Neutrophils (%) (Auto) 70.9, Lymphocytes (%) (Auto) 11.3L, Monocytes (%) (Auto) 9.3, Eosinophils (%) (Auto) 6.2H, Basophils (%) (Auto) 2.3H, Sodium Level 137, Potassium Level 3.4L, Chloride Level 101, Carbon Dioxide Level 30, Anion Gap 6, Blood Urea Nitrogen 18 , Creatinine 0.5L, Estimat Glomerular Filtration Rate , Glucose Level 131H, Calcium Level 8.4L, Pro-B-Type Natriuretic Peptide [id number] Current Medications Medications (Trade) Dose Ordered Sig/Christy Route PRN Reason Start Time Stop Time Status Last Admin Dose Admin Acetaminophen (Tylenol) 650 mg Q4H PRN ORAL Mild Pain/Temp > 100.5 01/07/18 18:45 02/06/18 18:44 Acetaminophen/ Codeine Phosphate (Tylenol #3) 2 tab Q6H PRN ORAL Pain Scale (6-10) 01/07/18 20:00 01/14/18 19:59 Aspirin (Ecotrin) 81 mg DAILY ORAL 01/09/18 09:00 02/08/18 08:59 01/11/18 09:06 Atorvastatin Calcium (Lipitor) 20 mg BEDTIME ORAL 01/07/18 21:00 02/06/18 20:59 01/10/18 20:03 Clopidogrel Bisulfate (Plavix) 75 mg DAILY ORAL 01/08/18 09:00 02/07/18 08:59 01/11/18 09:06 Dextrose (Dextrose 50%) 25 ml STAT PRN IV Hypoglycemia 01/07/18 19:45 02/06/18 19:44 Dextrose (Dextrose 50%) 50 ml STAT PRN IV Hypoglycemia 01/07/18 19:45 02/06/18 19:44 Escitalopram Oxalate (Lexapro) 10 mg DAILY ORAL 01/09/18 09:00 02/08/18 08:59 01/11/18 09:06 Ethambutol HCl (Myambutol) 800 mg DAILY ORAL 01/07/18 20:30 02/06/18 20:29 01/11/18 09:05 Furosemide (Lasix) 40 mg DAILY IV 01/11/18 13:00 02/10/18 12:59 01/11/18 13:29 Heparin Sodium (Porcine) (Heparin 5000 units/ml) 5,000 units EVERY 12 HOURS SUBQ 01/07/18 21:00 02/06/18 20:59 01/11/18 09:08 Insulin Aspart (NovoLOG) BEFORE MEALS AND HS SUBQ 01/07/18 21:00 02/06/18 20:59 01/11/18 11:32 Isoniazid (Inh) 300 mg DAILY ORAL 01/07/18 20:30 02/06/18 20:29 01/11/18 09:06 Metoprolol Tartrate (Lopressor) 12.5 mg Q12HR ORAL 01/08/18 21:00 02/07/18 20:59 01/09/18 08:17 Olanzapine (ZyPREXA) 2.5 mg BEDTIME ORAL 01/08/18 21:00 02/07/18 20:59 01/10/18 20:03 Ondansetron HCl (Zofran) 4 mg Q6H PRN IVP Nausea & Vomiting 01/07/18 20:00 02/06/18 19:59 Pantoprazole (Protonix) 40 mg EVERY 12 HOURS ORAL 01/07/18 21:00 02/06/18 20:59 01/11/18 09:07 Pyrazinamide (Pza) 1,000 mg DAILY ORAL 01/07/18 20:30 02/06/18 20:29 01/11/18 09:05 Pyridoxine HCl (Vitamin B6) 50 mg DAILY ORAL 01/07/18 20:30 02/06/18 20:29 01/11/18 09:05 Rifampin (Rifadin) 450 mg DAILY ORAL 01/07/18 20:30 02/06/18 20:29 01/11/18 09:07 Corwin Vyas MD Jan 11, 2018 14:05
[2018-01-11 16:00] VITALS: BP 106/57
[2018-01-11] MEDS ORDERED: Tubing IV Secondary IV ONE (16:38)
[2018-01-11] MEDS ORDERED: NS 275ml ONE (16:38)
[2018-01-11] MEDS ORDERED: D5NS 1000ml IV ONE (16:38)
[2018-01-11 20:00] VITALS: BP 104/55
[2018-01-11] MEDS: OLANZapine 2.5mg tab ORAL SCH (21:09)
[2018-01-11] MEDS: Atorvastatin 20mg tab ORAL SCH (21:09)
[2018-01-12] VITALS (7 sets, daily range): BP systolic 96–110; BP diastolic 48–60
[2018-01-12 06:01] LABS: BASOPHILS % (AUTO) 2.1 % (0.0-2.0); EOSINOPHILS % (AUTO) 5.4 % (0.0-3.0); HEMATOCRIT 37.1 % (42.0-52.0); HEMOGLOBIN 12.6 G/DL (14.2-18.0); LYMPHOCYTES % (AUTO) 10.9 % (20.0-45.0); MEAN CORPUSCULAR VOLUME 99 FL (80-99); MONOCYTES % (AUTO) 8.6 % (1.0-10.0); PLATELET COUNT 255 K/UL (150-450); RED BLOOD COUNT 3.77 M/UL (4.70-6.10); RED CELL DISTRIBUTION WIDTH 14.4 % (11.6-14.8); WHITE BLOOD COUNT 4.8 K/UL (4.8-10.8)
[2018-01-12] MEDS: NovoLOG Insulin Flexpen SUBQ SCH ×4 (06:24→20:14)
[2018-01-12 06:32] LABS: ANION GAP 9 mmol/L (5-15); BLOOD UREA NITROGEN 18 mg/dL (7-18); CALCIUM 8.7 MG/DL (8.5-10.1); CARBON DIOXIDE 29 MMOL/L (21-32); CHLORIDE 99 MMOL/L (98-107); CREATININE 0.6 MG/DL (0.55-1.30); POTASSIUM 3.4 MMOL/L (3.5-5.1); SODIUM 137 MMOL/L (136-145)
[2018-01-12] MEDS: Isoniazid 300mg tab ORAL SCH (09:07)
[2018-01-12] MEDS: Pyridoxine 50mg tab ORAL SCH (09:09)
[2018-01-12] MEDS: Metoprolol Tartrate 12.5mg TAB ORAL SCH ×2 (09:09→20:12)
[2018-01-12] MEDS: Aspirin EC 81mg tab ORAL SCH (09:10)
[2018-01-12] MEDS: RIFAMPIN 150 MG ORAL SCH (09:11)
--- NOTE | 2018-01-12 09:18 | Urology Progress Note ---
Assessment/Plan Assessment/Plan urinary retention hx now incontinence BPH hx possible neurogenic bladder hematuria monitor for voiding currently off flomax BP better, can consider resuming again later? renal fxn remains stable consider renal imaging cysto later Subjective Allergies: Coded Allergies: No Known Allergies (Unverified , 12/17/17) Subjective all noted, voiding/incontinent, condom cath Objective Last 24 Hour Vital Signs Date Time Temp Pulse Resp B/P (MAP) Pulse Ox O2 Delivery O2 Flow Rate FiO2 01/12/18 09:09 109 60/103 01/12/18 04:00 Room Air 01/12/18 04:00 97.7 91 18 108/54 (72) 99 97.7 01/12/18 04:00 84 01/12/18 00:00 Room Air 01/12/18 00:00 97.7 96 19 96/53 (67) 99 97.7 01/12/18 00:00 89 01/11/18 20:40 96 104/55 01/11/18 20:00 98.2 96 18 104/55 (71) 98 98.2 01/11/18 20:00 Room Air 01/11/18 20:00 91 01/11/18 17:07 89 01/11/18 16:00 98.1 89 16 106/57 (73) 98 98.1 01/11/18 16:00 Room Air 01/11/18 12:30 85 01/11/18 12:00 Room Air 01/11/18 11:22 98.2 83 18 115/65 (82) 100 98.2 Intake and Output 01/11/18 01/12/18 19:00 07:00 Intake Total 600 ml 75 ml Output Total 400 ml Balance 600 ml -325 ml Intake Oral 600 ml 75 ml Output Urine Total 400 ml # Bowel Movements 3 Microbiology Date/Time Source Procedure Growth Status 01/09/18 11:50 Blood Blood Culture - Preliminary NO GROWTH AFTER 48 HOURS Resulted 01/07/18 16:00 Nasal Nares MRSA Culture - Final NO METHICILLIN RESISTANT STAPH AUREUS... Complete 01/09/18 12:15 Urine,Clean Catch Urine Culture - Final Klebsiella Pneumoniae Annia Albicans Complete 01/08/18 16:05 Rectum - Final NO CARBAPENEM-RESISTANT ENTEROBACTERI... Complete Current Medications Medications (Trade) Dose Ordered Sig/Christy Route PRN Reason Start Time Stop Time Status Last Admin Dose Admin Acetaminophen (Tylenol) 650 mg Q4H PRN ORAL Mild Pain/Temp > 100.5 01/07/18 18:45 02/06/18 18:44 Acetaminophen/ Codeine Phosphate (Tylenol #3) 2 tab Q6H PRN ORAL Pain Scale (6-10) 01/07/18 20:00 01/14/18 19:59 Aspirin (Ecotrin) 81 mg DAILY ORAL 01/09/18 09:00 02/08/18 08:59 01/11/18 09:06 Atorvastatin Calcium (Lipitor) 20 mg BEDTIME ORAL 01/07/18 21:00 02/06/18 20:59 01/11/18 21:09 Clopidogrel Bisulfate (Plavix) 75 mg DAILY ORAL 01/08/18 09:00 02/07/18 08:59 01/11/18 09:06 Dextrose (Dextrose 50%) 25 ml STAT PRN IV Hypoglycemia 01/07/18 19:45 02/06/18 19:44 Dextrose (Dextrose 50%) 50 ml STAT PRN IV Hypoglycemia 01/07/18 19:45 02/06/18 19:44 Escitalopram Oxalate (Lexapro) 10 mg DAILY ORAL 01/09/18 09:00 02/08/18 08:59 01/11/18 09:06 Ethambutol HCl (Myambutol) 800 mg DAILY ORAL 01/07/18 20:30 02/06/18 20:29 01/11/18 09:05 Furosemide (Lasix) 40 mg DAILY IV 01/11/18 13:00 02/10/18 12:59 01/11/18 13:29 Heparin Sodium (Porcine) (Heparin 5000 units/ml) 5,000 units EVERY 12 HOURS SUBQ 01/07/18 21:00 02/06/18 20:59 01/11/18 21:12 Insulin Aspart (NovoLOG) BEFORE MEALS AND HS SUBQ 01/07/18 21:00 02/06/18 20:59 01/11/18 21:13 Isoniazid (Inh) 300 mg DAILY ORAL 01/07/18 20:30 02/06/18 20:29 01/12/18 09:07 Metoprolol Tartrate (Lopressor) 12.5 mg Q12HR ORAL 01/08/18 21:00 02/07/18 20:59 01/12/18 09:09 Olanzapine (ZyPREXA) 2.5 mg BEDTIME ORAL 01/08/18 21:00 02/07/18 20:59 01/11/18 21:09 Ondansetron HCl (Zofran) 4 mg Q6H PRN IVP Nausea & Vomiting 01/07/18 20:00 02/06/18 19:59 Pantoprazole (Protonix) 40 mg EVERY 12 HOURS ORAL 01/07/18 21:00 02/06/18 20:59 01/12/18 09:07 Pyrazinamide (Pza) 1,000 mg DAILY ORAL 01/07/18 20:30 02/06/18 20:29 01/12/18 09:08 Pyridoxine HCl (Vitamin B6) 50 mg DAILY ORAL 01/07/18 20:30 02/06/18 20:29 01/12/18 09:09 Rifampin (Rifadin) 450 mg DAILY ORAL 01/07/18 20:30 02/06/18 20:29 01/11/18 09:07 Laboratory Tests 01/12/18 05:11: White Blood Count 4.8, Red Blood Count 3.77L, Hemoglobin 12.6L, Hematocrit 37.1L , Mean Corpuscular Volume 99, Mean Corpuscular Hemoglobin 33.6H, Mean Corpuscular Hemoglobin Concent 34.0, Red Cell Distribution Width 14.4, Platelet Count 255, Mean Platelet Volume 5.6L, Neutrophils (%) (Auto) 73.0, Lymphocytes ( %) (Auto) 10.9L, Monocytes (%) (Auto) 8.6, Eosinophils (%) (Auto) 5.4H, Basophils (%) (Auto) 2.1H, Sodium Level 137, Potassium Level 3.4L, Chloride Level 99, Carbon Dioxide Level 29, Anion Gap 9, Blood Urea Nitrogen 18, Creatinine 0.6, Estimat Glomerular Filtration Rate , Glucose Level 85, Calcium Level 8.7, Pro-B-Type Natriuretic Peptide 7947H Height (Feet): 5 Height (Inches): 5.00 Weight (Pounds): 89 Objective exam stable, condom cath with yellow/romana urine/slightly blood-tinged BAMSHAD,SAMM Jan 12, 2018 09:18
[2018-01-12] MEDS: Heparin 5000 units/ml inj SUBQ SCH ×2 (09:19→20:13)
--- NOTE | 2018-01-12 10:46 | Infectious Diseases Prog Note ---
"Assessment/Plan Assessment/Plan antibiotics : isoniazid, rifampin, pyrazinamide, ethambutol, pyridoxine A 1. pulmonary tuberculosis 2. COPD 3. bronchiectasis 4. diabetes mellitus 5. hypertension 6. [place] 7. klebsiella | fungal UTI P 1. continue isoniazid, rifampin, pyrazinamide, ethambutol, pyridoxine 2. start ceftriaxone, fluconazole 3. will follow up cultures Subjective ROS Limited/Unobtainable: Yes Allergies: Coded Allergies: No Known Allergies (Unverified , 12/17/17) Objective Vital Signs Last 24 Hour Vital Signs Date Time Temp Pulse Resp B/P (MAP) Pulse Ox O2 Delivery O2 Flow Rate FiO2 01/12/18 09:09 109 60/103 01/12/18 04:00 Room Air 01/12/18 04:00 97.7 91 18 108/54 (72) 99 97.7 01/12/18 04:00 84 01/12/18 00:00 Room Air 01/12/18 00:00 97.7 96 19 96/53 (67) 99 97.7 01/12/18 00:00 89 01/11/18 20:40 96 104/55 01/11/18 20:00 98.2 96 18 104/55 (71) 98 98.2 01/11/18 20:00 Room Air 01/11/18 20:00 91 01/11/18 17:07 89 01/11/18 16:00 98.1 89 16 106/57 (73) 98 98.1 01/11/18 16:00 Room Air 01/11/18 12:30 85 01/11/18 12:00 Room Air 01/11/18 11:22 98.2 83 18 115/65 (82) 100 98.2 Height (Feet): 5 Height (Inches): 5.00 Weight (Pounds): 89 Respiratory/Chest: lungs clear Cardiovascular: normal rate, regular rhythm, no gallop/murmur Abdomen: soft, non tender Extremities: no edema Microbiology Date/Time Source Procedure Growth Status 01/09/18 11:50 Blood Blood Culture - Preliminary NO GROWTH AFTER 48 HOURS Resulted 01/09/18 12:15 Urine,Clean Catch Urine Culture - Final Klebsiella Pneumoniae Annia Albicans Complete Laboratory Tests Test 01/12/18 05:11 White Blood Count 4.8 K/UL (4.8-10.8) Red Blood Count 3.77 M/UL (4.70-6.10) L Hemoglobin 12.6 G/DL (14.2-18.0) L Hematocrit 37.1 % (42.0-52.0) L Mean Corpuscular Volume 99 FL (80-99) Mean Corpuscular Hemoglobin 33.6 PG (27.0-31.0) H Mean Corpuscular Hemoglobin Concent 34.0 G/DL (32.0-36.0) Red Cell Distribution Width 14.4 % (11.6-14.8) Platelet Count 255 K/UL (150-450) Mean Platelet Volume 5.6 FL (6.5-10.1) L Neutrophils (%) (Auto) 73.0 % (45.0-75.0) Lymphocytes (%) (Auto) 10.9 % (20.0-45.0) L Monocytes (%) (Auto) 8.6 % (1.0-10.0) Eosinophils (%) (Auto) 5.4 % (0.0-3.0) H Basophils (%) (Auto) 2.1 % (0.0-2.0) H Sodium Level 137 MMOL/L (136-145) Potassium Level 3.4 MMOL/L (3.5-5.1) L Chloride Level 99 MMOL/L (98-107) Carbon Dioxide Level 29 MMOL/L (21-32) Anion Gap 9 mmol/L (5-15) Blood Urea Nitrogen 18 mg/dL (7-18) Creatinine 0.6 MG/DL (0.55-1.30) Estimat Glomerular Filtration Rate mL/min (>60) Glucose Level 85 MG/DL (74-106) Calcium Level 8.7 MG/DL (8.5-10.1) Pro-B-Type Natriuretic Peptide 7947 pg/mL (0-125) H Current Medications Medications (Trade) Dose Ordered Sig/Christy Route PRN Reason Start Time Stop Time Status Last Admin Dose Admin Acetaminophen (Tylenol) 650 mg Q4H PRN ORAL Mild Pain/Temp > 100.5 01/07/18 18:45 02/06/18 18:44 Acetaminophen/ Codeine Phosphate (Tylenol #3) 2 tab Q6H PRN ORAL Pain Scale (6-10) 01/07/18 20:00 9/16/18 19:59 Aspirin (Ecotrin) 81 mg DAILY ORAL 01/09/18 09:00 02/08/18 08:59 01/12/18 09:10 Atorvastatin Calcium (Lipitor) 20 mg BEDTIME ORAL 01/07/18 21:00 02/06/18 20:59 01/11/18 21:09 Clopidogrel Bisulfate (Plavix) 75 mg DAILY ORAL 01/08/18 09:00 02/07/18 08:59 01/12/18 09:12 Dextrose (Dextrose 50%) 25 ml STAT PRN IV Hypoglycemia 01/07/18 19:45 02/06/18 19:44 Dextrose (Dextrose 50%) 50 ml STAT PRN IV Hypoglycemia 01/07/18 19:45 02/06/18 19:44 Escitalopram Oxalate (Lexapro) 10 mg DAILY ORAL 01/09/18 09:00 02/08/18 08:59 01/12/18 09:12 Ethambutol HCl (Myambutol) 800 mg DAILY ORAL 01/07/18 20:30 02/06/18 20:29 01/12/18 09:14 Furosemide (Lasix) 40 mg DAILY IV 01/11/18 13:00 02/10/18 12:59 01/12/18 09:10 Heparin Sodium (Porcine) (Heparin 5000 units/ml) 5,000 units EVERY 12 HOURS SUBQ 01/07/18 21:00 02/06/18 20:59 01/12/18 09:19 Insulin Aspart (NovoLOG) BEFORE MEALS AND HS SUBQ 01/07/18 21:00 02/06/18 20:59 01/11/18 21:13 Isoniazid (Inh) 300 mg DAILY ORAL 01/07/18 20:30 02/06/18 20:29 01/12/18 09:07 Metoprolol Tartrate (Lopressor) 12.5 mg Q12HR ORAL 01/08/18 21:00 02/07/18 20:59 01/12/18 09:09 Olanzapine (ZyPREXA) 2.5 mg BEDTIME ORAL 01/08/18 21:00 02/07/18 20:59 01/11/18 21:09 Ondansetron HCl (Zofran) 4 mg Q6H PRN IVP Nausea & Vomiting 01/07/18 20:00 02/06/18 19:59 Pantoprazole (Protonix) 40 mg EVERY 12 HOURS ORAL 01/07/18 21:00 02/06/18 20:59 01/12/18 09:07 Pyrazinamide (Pza) 1,000 mg DAILY ORAL 01/07/18 20:30 02/06/18 20:29 01/12/18 09:08 Pyridoxine HCl (Vitamin B6) 50 mg DAILY ORAL 01/07/18 20:30 02/06/18 20:29 01/12/18 09:09 Rifampin (Rifadin) 450 mg DAILY ORAL 01/07/18 20:30 02/06/18 20:29 01/12/18 09:11 ROYA RODRIGUES Jan 12, 2018 10:46"
[2018-01-12] MEDS ORDERED: Fluconazole 100mg tab ORAL SCH (11:00)
[2018-01-12] MEDS ORDERED: cefTRIAXone 1 GM in D5W 55 ML IVPB SCH (12:00)
--- NOTE | 2018-01-12 12:14 | Cardiac Electrophysiology PN ---
Assessment/Plan Assessment/Plan 1. Hypotension due to dehydration. Resolved with IV fluid 2. Recent non-ST elevation myocardial infarction. Troponin around 4 but no CP.ECG unchanged Echocardiogram showed ejection fraction 40% to 45%. On aspirin, Plavix, metoprolol, and Lipitor. Family wanted medical therapy last admission and on this admission 3. Questionable tuberculosis. Is off respiratory isolation, was cleared by Department of Health. 4. Azotemia on IV fluid. Subjective Subjective Comfortable in NAD. No CP or SOB. Objective Last 24 Hour Vital Signs Date Time Temp Pulse Resp B/P (MAP) Pulse Ox O2 Delivery O2 Flow Rate FiO2 01/12/18 09:09 109 60/103 01/12/18 08:00 97.7 103 18 109/60 (76) 99 97.7 01/12/18 08:00 94 01/12/18 08:00 Room Air 01/12/18 04:00 Room Air 01/12/18 04:00 97.7 91 18 108/54 (72) 99 97.7 01/12/18 04:00 84 01/12/18 00:00 Room Air 01/12/18 00:00 97.7 96 19 96/53 (67) 99 97.7 01/12/18 00:00 89 01/11/18 20:40 96 104/55 01/11/18 20:00 98.2 96 18 104/55 (71) 98 98.2 01/11/18 20:00 Room Air 01/11/18 20:00 91 01/11/18 17:07 89 01/11/18 16:00 98.1 89 16 106/57 (73) 98 98.1 01/11/18 16:00 Room Air 01/11/18 12:30 85 Intake and Output 01/11/18 01/12/18 19:00 07:00 Intake Total 600 ml 75 ml Output Total 400 ml Balance 600 ml -325 ml Intake Oral 600 ml 75 ml Output Urine Total 400 ml # Bowel Movements 3 Laboratory Tests Test 01/12/18 05:11 White Blood Count 4.8 K/UL (4.8-10.8) Red Blood Count 3.77 M/UL (4.70-6.10) L Hemoglobin 12.6 G/DL (14.2-18.0) L Hematocrit 37.1 % (42.0-52.0) L Mean Corpuscular Volume 99 FL (80-99) Mean Corpuscular Hemoglobin 33.6 PG (27.0-31.0) H Mean Corpuscular Hemoglobin Concent 34.0 G/DL (32.0-36.0) Red Cell Distribution Width 14.4 % (11.6-14.8) Platelet Count 255 K/UL (150-450) Mean Platelet Volume 5.6 FL (6.5-10.1) L Neutrophils (%) (Auto) 73.0 % (45.0-75.0) Lymphocytes (%) (Auto) 10.9 % (20.0-45.0) L Monocytes (%) (Auto) 8.6 % (1.0-10.0) Eosinophils (%) (Auto) 5.4 % (0.0-3.0) H Basophils (%) (Auto) 2.1 % (0.0-2.0) H Sodium Level 137 MMOL/L (136-145) Potassium Level 3.4 MMOL/L (3.5-5.1) L Chloride Level 99 MMOL/L (98-107) Carbon Dioxide Level 29 MMOL/L (21-32) Anion Gap 9 mmol/L (5-15) Blood Urea Nitrogen 18 mg/dL (7-18) Creatinine 0.6 MG/DL (0.55-1.30) Estimat Glomerular Filtration Rate mL/min (>60) Glucose Level 85 MG/DL (74-106) Calcium Level 8.7 MG/DL (8.5-10.1) Pro-B-Type Natriuretic Peptide 7947 pg/mL (0-125) H Microbiology Date/Time Source Procedure Growth Status 01/09/18 12:15 Urine,Clean Catch Urine Culture - Final Klebsiella Pneumoniae Annia Albicans Complete Objective HEAD AND NECK: No JVD. LUNGS: Clear. CARDIOVASCULAR: Regular S1 and S2 with no gallop. ABDOMEN: Soft. EXTREMITIES: No pitting edema. Domingo Swanson MD Jan 12, 2018 12:14
--- NOTE | 2018-01-12 17:13 | Pulmonology Progress Note ---
Assessment/Plan Assessment/Plan Pulmonary Progress Note Reason for Hospitalization: Generalized Weakness, NSTEMI Troponin downtrended Still refusing cardiac catheterization, no new complaints, K supplemented Will DC I V antibiotics and IV lasix Lasix 20 mg po daily and KCL 10 MEq daily Present Illness Allergies: Coded Allergies: No Known Allergies (Unverified , 12/17/17) Medication History Scheduled Atorvastatin Calcium* (Atorvastatin Calcium*), 20 MG ORAL DAILY, (Reported) Clopidogrel* (Clopidogrel*), 75 MG ORAL DAILY, (Reported) Glimepiride* (Glimepiride*), 4 MG ORAL BID, (Reported) Glipizide* (Glucotrol*), 10 MG ORAL BID, (Reported) Isosorbide Mononitrate (Isosorbide Mononitrate Er), 60 MG PO DAILY, (Reported) Lisinopril (Lisinopril*), 20 MG ORAL DAILY, (Reported) Metformin Hcl* (Metformin Hcl*), 1,000 MG ORAL BID, (Reported) Potassium Chloride (Potassium Chloride), 8 MEQ PO DAILY, (Reported) Patient History Healthcare decision maker Resuscitation status Advanced Directive on File Physical Exam General Appearance: no apparent distress Lines, tubes and drains: peripheral HEENT: normocephalic, atraumatic, EOMI, pharynx normal Neck: non-tender, normal inspection Respiratory/Chest: lungs clear Cardiovascular/Chest: normal peripheral pulses, normal rate, regular rhythm, no JVD Abdomen: non tender, soft, no organomegaly Extremities: normal range of motion Last 24 Hour Vital Signs Date Time Temp Pulse Resp B/P (MAP) Pulse Ox O2 Delivery O2 Flow Rate FiO2 01/07/18 17:34 96.8 66 18 101/55 (70) 98 96.8 01/07/18 17:27 98.9 85 18 103/57 98 Room Air 98.9 01/07/18 16:28 98.9 85 18 103/57 98 Room Air 98.9 01/07/18 16:21 71 103/57 72 101/43 01/07/18 14:33 99.0 16 90/40 97 Room Air 99.0 01/07/18 13:50 99.0 80 16 90/40 97 Room Air 99.0 Intake and Output 01/06/18 01/07/18 19:00 07:00 # Bowel Movements 1 Laboratory Tests RAY Chest 1v Indication: Chest pain Technique: One view of the chest Comparison: 12/17/2017 Findings: Extensive calcific pleural and parenchymal scarring is again demonstrated at the left lung base. Extensive parenchymal scarring is seen in the left infrahilar and suprahilar regions. The right lung and pleural space remain clear. The heart size is normal. The aorta is calcified. Findings are unchanged Impression: Extensive chronic appearing changes, as described, stable since 12/17/2017. No definite acute process Test 01/07/18 15:15 White Blood Count 4.7 K/UL (4.8-10.8) L Red Blood Count 2.45 M/UL (4.70-6.10) L Hemoglobin 7.9 G/DL (14.2-18.0) L Hematocrit 24.9 % (42.0-52.0) L Mean Corpuscular Volume 101 FL (80-99) H Mean Corpuscular Hemoglobin 32.4 PG (27.0-31.0) H Mean Corpuscular Hemoglobin Concent 32.0 G/DL (32.0-36.0) Red Cell Distribution Width 15.9 % (11.6-14.8) H Platelet Count 286 K/UL (150-450) Mean Platelet Volume 5.3 FL (6.5-10.1) L Neutrophils (%) (Auto) 74.8 % (45.0-75.0) Lymphocytes (%) (Auto) 13.0 % (20.0-45.0) L Monocytes (%) (Auto) 7.9 % (1.0-10.0) Eosinophils (%) (Auto) 2.9 % (0.0-3.0) Basophils (%) (Auto) 1.3 % (0.0-2.0) Prothrombin Time 11.3 SEC (9.30-11.50) Prothromb Time International Ratio 1.1 (0.9-1.1) Activated Partial Thromboplast Time 28 SEC (23-33) Sodium Level 143 MMOL/L (136-145) Potassium Level 3.6 MMOL/L (3.5-5.1) Chloride Level 109 MMOL/L (98-107) H Carbon Dioxide Level 30 MMOL/L (21-32) Anion Gap 4 mmol/L (5-15) L Blood Urea Nitrogen 31 mg/dL (7-18) H Creatinine 0.7 MG/DL (0.55-1.30) Estimat Glomerular Filtration Rate mL/min (>60) Glucose Level 142 MG/DL (74-106) H Calcium Level 8.4 MG/DL (8.5-10.1) L Total Bilirubin 0.4 MG/DL (0.2-1.0) Aspartate Amino Transf (AST/SGOT) 26 U/L (15-37) Alanine Aminotransferase (ALT/SGPT) 19 U/L (12-78) Alkaline Phosphatase 88 U/L (46-116) Total Creatine Kinase 61 U/L (26-308) Creatine Kinase MB 2.8 NG/ML (0.0-3.6) Creatine Kinase MB Relative Index 4.5 Troponin I 3.757 ng/mL (0.000-0.056) Pro-B-Type Natriuretic Peptide 9091 pg/mL (0-125) H Total Protein 5.9 G/DL (6.4-8.2) L Albumin 2.3 G/DL (3.4-5.0) L Globulin 3.6 g/dL Albumin/Globulin Ratio 0.6 (1.0-2.7) L Lipase 99 U/L (73-393) Height (Feet): 5 Height (Inches): 5.00 Weight (Pounds): 70 Objective Narrative Sp02 EP Interpretation: reviewed, normal General Appearance: normal inspection, alert, cachetic, thin, Chronically Ill 98% on 2 L which is a normal percentage Sp02 EP Interpretation: normal General Appearance: mild distress - Patient appears frail Head: normocephalic, atraumatic Eyes: bilateral eye PERRL ENT: dry mucus membranes Neck: supple Respiratory: no respiratory distress, no retraction, crackles Cardiovascular #1: regular rate, rhythm, no edema Gastrointestinal: non tender, soft, no mass Musculoskeletal: normal inspection Neurologic: alert, responsive Skin: no rash Assessment/Plan Status: stable Status Narrative HPI Patient is a 77-year-old male brought in by EMS after the patient was noted to have decreased blood pressure. Patient was reportedly the noted to have prior history of type had type 2 diabetes and hypertension. Patient was noted be hypotensive by EMS. The patient was noted to be poorly verbal.The patient had recently discharged from the hospital. The patient was noted to have a recent myocardial infarction.Patient denies any chest pain at this time. 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 insulator patient denies any chest pain Was reportedly sent to the emergency room with reports of low blood pressure Patient had a complicated medical stay and history including tuberculosis on 4 drug anti TB treatment Also cardiac event non-STEMI Patient family had refused any further intervention at that time Upon today's arrival the patient's EKG was significantly abnormal Previous EKG is printed and contact was made with cardiology specialty who saw the patient in the hospital recently It was felt that the patient's EKG appeared similar to his previous and further catheterization intervention refused Will need SNF placement - Romanian speaking per family request Allergies: Coded Allergies: No Known Allergies (Unverified , 12/17/17) Past Medical History: Hx Cardiac Problems: CAD, recent STEMI Hx Hypertension: Yes Hx COPD: Yes Hx Diabetes: Yes Hx Cancer: No Hx Gastrointestinal Problems: No Hx Neurological Problems: No Hx Tuberculosis: Yes ROS: All Other Systems: limited - Other than the ones mentioned in the history of present illness all others are reviewed however they do stay limited due to the patient's mental status Diagnostic Impression: Primary Impression: NSTEMI (non-ST elevated myocardial infarction) Additional Impression: Hypotension Patient presented for hypotension. The differential diagnosis included wasn't limited to myocardial infarction, aortic dissection, sepsis, dehydration among others.Because of complexity of patient's case laboratory testing and imaging studies were ordered. The EKG was noted to have evidence of markedness to depression in the lateral leads. Patient is a fairly complex patient with multiple differential to consideration including but not limited to cardiac cardiopulmonary and vascular emergencies Patient has extensive and significant medical history Troponin levels again returned elevated Patient's EKG is reviewed with cardiology at bedside It is felt that the EKG shows some similar findings to previous And therefore cardiac catheterization was not emergently required Patient's blood pressure has done better with acute intervention Patient requiring higher level of care admission continued care Labs Test 01/07/18 15:15 White Blood Count 4.7 K/UL (4.8-10.8) Red Blood Count 2.45 M/UL (4.70-6.10) Hemoglobin 7.9 G/DL (14.2-18.0) Hematocrit 24.9 % (42.0-52.0) Mean Corpuscular Volume 101 FL (80-99) Mean Corpuscular Hemoglobin 32.4 PG (27.0-31.0) Mean Corpuscular Hemoglobin Concent 32.0 G/DL (32.0-36.0) Red Cell Distribution Width 15.9 % (11.6-14.8) Platelet Count 286 K/UL (150-450) Mean Platelet Volume 5.3 FL (6.5-10.1) Neutrophils (%) (Auto) 74.8 % (45.0-75.0) Lymphocytes (%) (Auto) 13.0 % (20.0-45.0) Monocytes (%) (Auto) 7.9 % (1.0-10.0) Eosinophils (%) (Auto) 2.9 % (0.0-3.0) Basophils (%) (Auto) 1.3 % (0.0-2.0) Prothrombin Time 11.3 SEC (9.30-11.50) Prothromb Time International Ratio 1.1 (0.9-1.1) Activated Partial Thromboplast Time 28 SEC (23-33) Sodium Level 143 MMOL/L (136-145) Potassium Level 3.6 MMOL/L (3.5-5.1) Chloride Level 109 MMOL/L (98-107) Carbon Dioxide Level 30 MMOL/L (21-32) Anion Gap 4 mmol/L (5-15) Blood Urea Nitrogen 31 mg/dL (7-18) Creatinine 0.7 MG/DL (0.55-1.30) Estimat Glomerular Filtration Rate mL/min (>60) Glucose Level 142 MG/DL (74-106) Calcium Level 8.4 MG/DL (8.5-10.1) Total Bilirubin 0.4 MG/DL (0.2-1.0) Aspartate Amino Transf (AST/SGOT) 26 U/L (15-37) Alanine Aminotransferase (ALT/SGPT) 19 U/L (12-78) Alkaline Phosphatase 88 U/L (46-116) Total Creatine Kinase 61 U/L (26-308) Creatine Kinase MB 2.8 NG/ML (0.0-3.6) Creatine Kinase MB Relative Index 4.5 Troponin I 3.757 ng/mL (0.000-0.056) Pro-B-Type Natriuretic Peptide 9091 pg/mL (0-125) Total Protein 5.9 G/DL (6.4-8.2) Albumin 2.3 G/DL (3.4-5.0) Globulin 3.6 g/dL Albumin/Globulin Ratio 0.6 (1.0-2.7) Lipase 99 U/L (73-393) EKG: Rate: normal Rhythm: NSR ST Segments: other - Mild changes in the V1 and V2, ST segment mild elevation, V4 V5 ST segment depression Subjective ROS Limited/Unobtainable: No Allergies: Coded Allergies: No Known Allergies (Unverified , 12/17/17) Objective Last 24 Hour Vital Signs Date Time Temp Pulse Resp B/P (MAP) Pulse Ox O2 Delivery O2 Flow Rate FiO2 01/12/18 16:00 Room Air 01/12/18 12:00 98.0 18 110/56 (74) 97 98.0 01/12/18 12:00 78 01/12/18 12:00 Room Air 01/12/18 09:09 109 60/103 01/12/18 08:00 97.7 103 18 109/60 (76) 99 97.7 01/12/18 08:00 94 01/12/18 08:00 Room Air 01/12/18 04:00 Room Air 01/12/18 04:00 97.7 91 18 108/54 (72) 99 97.7 01/12/18 04:00 84 01/12/18 00:00 Room Air 01/12/18 00:00 97.7 96 19 96/53 (67) 99 97.7 01/12/18 00:00 89 01/11/18 20:40 96 104/55 01/11/18 20:00 98.2 96 18 104/55 (71) 98 98.2 01/11/18 20:00 Room Air 01/11/18 20:00 91 Intake and Output 01/11/18 01/12/18 19:00 07:00 Intake Total 600 ml 75 ml Output Total 400 ml Balance 600 ml -325 ml Intake Oral 600 ml 75 ml Output Urine Total 400 ml # Bowel Movements 3 Laboratory Tests 01/12/18 05:11: White Blood Count 4.8, Red Blood Count 3.77L, Hemoglobin 12.6L, Hematocrit 37.1L , Mean Corpuscular Volume 99, Mean Corpuscular Hemoglobin 33.6H, Mean Corpuscular Hemoglobin Concent 34.0, Red Cell Distribution Width 14.4, Platelet Count 255, Mean Platelet Volume 5.6L, Neutrophils (%) (Auto) 73.0, Lymphocytes ( %) (Auto) 10.9L, Monocytes (%) (Auto) 8.6, Eosinophils (%) (Auto) 5.4H, Basophils (%) (Auto) 2.1H, Sodium Level 137, Potassium Level 3.4L, Chloride Level 99, Carbon Dioxide Level 29, Anion Gap 9, Blood Urea Nitrogen 18, Creatinine 0.6, Estimat Glomerular Filtration Rate , Glucose Level 85, Calcium Level 8.7, Pro-B-Type Natriuretic Peptide 7947H Current Medications Medications (Trade) Dose Ordered Sig/Christy Route PRN Reason Start Time Stop Time Status Last Admin Dose Admin Acetaminophen (Tylenol) 650 mg Q4H PRN ORAL Mild Pain/Temp > 100.5 01/07/18 18:45 02/06/18 18:44 Acetaminophen/ Codeine Phosphate (Tylenol #3) 2 tab Q6H PRN ORAL Pain Scale (6-10) 01/07/18 20:00 01/14/18 19:59 Aspirin (Ecotrin) 81 mg DAILY ORAL 01/09/18 09:00 02/08/18 08:59 01/12/18 09:10 Atorvastatin Calcium (Lipitor) 20 mg BEDTIME ORAL 01/07/18 21:00 02/06/18 20:59 01/11/18 21:09 Ceftriaxone Sodium 1 gm/ Dextrose 55 ml @ 110 mls/hr DAILY IVPB 01/12/18 12:00 01/19/18 11:59 01/12/18 12:14 Clopidogrel Bisulfate (Plavix) 75 mg DAILY ORAL 01/08/18 09:00 02/07/18 08:59 01/12/18 09:12 Dextrose (Dextrose 50%) 25 ml STAT PRN IV Hypoglycemia 01/07/18 19:45 02/06/18 19:44 Dextrose (Dextrose 50%) 50 ml STAT PRN IV Hypoglycemia 01/07/18 19:45 02/06/18 19:44 Escitalopram Oxalate (Lexapro) 10 mg DAILY ORAL 01/09/18 09:00 02/08/18 08:59 01/12/18 09:12 Ethambutol HCl (Myambutol) 800 mg DAILY ORAL 01/07/18 20:30 02/06/18 20:29 01/12/18 09:14 Fluconazole (Diflucan) 100 mg DAILY ORAL 01/12/18 11:00 01/19/18 10:59 01/12/18 12:14 Furosemide (Lasix) 40 mg DAILY IV 01/11/18 13:00 02/10/18 12:59 01/12/18 09:10 Heparin Sodium (Porcine) (Heparin 5000 units/ml) 5,000 units EVERY 12 HOURS SUBQ 01/07/18 21:00 02/06/18 20:59 01/12/18 09:19 Insulin Aspart (NovoLOG) BEFORE MEALS AND HS SUBQ 01/07/18 21:00 02/06/18 20:59 01/12/18 12:16 Isoniazid (Inh) 300 mg DAILY ORAL 01/07/18 20:30 02/06/18 20:29 01/12/18 09:07 Metoprolol Tartrate (Lopressor) 12.5 mg Q12HR ORAL 01/08/18 21:00 02/07/18 20:59 01/12/18 09:09 Olanzapine (ZyPREXA) 2.5 mg BEDTIME ORAL 01/08/18 21:00 02/07/18 20:59 01/11/18 21:09 Ondansetron HCl (Zofran) 4 mg Q6H PRN IVP Nausea & Vomiting 01/07/18 20:00 02/06/18 19:59 Pantoprazole (Protonix) 40 mg EVERY 12 HOURS ORAL 01/07/18 21:00 02/06/18 20:59 01/12/18 09:07 Pyrazinamide (Pza) 1,000 mg DAILY ORAL 01/07/18 20:30 02/06/18 20:29 01/12/18 09:08 Pyridoxine HCl (Vitamin B6) 50 mg DAILY ORAL 01/07/18 20:30 02/06/18 20:29 01/12/18 09:09 Rifampin (Rifadin) 450 mg DAILY ORAL 01/07/18 20:30 02/06/18 20:29 01/12/18 09:11 Corwin Vyas MD Jan 12, 2018 17:13
[2018-01-12] MEDS: OLANZapine 2.5mg tab ORAL SCH (20:11)
[2018-01-12] MEDS: Atorvastatin 20mg tab ORAL SCH (20:12)
[2018-01-12] MEDS ORDERED: Tubing IV Secondary IV ONE (21:29)
[2018-01-12] MEDS ORDERED: NS 275ml ONE (21:29)
--- NOTE | 2018-01-12 23:20 | General Progress Note ---
Assessment/Plan Assessment/Plan Encephalopathy due to [facility] MDD -lexapro 10mg qam -zyprexa 2.5 mg qhs Subjective Date patient seen: Jan 12, 2018 Neurologic/Psychiatric: Reports: anxiety, depressed, emotional problems Allergies: Coded Allergies: No Known Allergies (Unverified , 12/17/17) Subjective the pt cont to be depressed. Objective Last 24 Hour Vital Signs Date Time Temp Pulse Resp B/P (MAP) Pulse Ox O2 Delivery O2 Flow Rate FiO2 01/12/18 20:12 73 97/48 01/12/18 20:00 77 01/12/18 20:00 98.1 73 16 97/48 (64) 100 98.1 01/12/18 20:00 Room Air 01/12/18 16:00 98.5 76 18 103/49 (67) 99 98.5 01/12/18 16:00 Room Air 01/12/18 16:00 73 01/12/18 12:00 98.0 18 110/56 (74) 97 98.0 01/12/18 12:00 78 01/12/18 12:00 Room Air 01/12/18 09:09 109 60/103 01/12/18 08:00 97.7 103 18 109/60 (76) 99 97.7 01/12/18 08:00 94 01/12/18 08:00 Room Air 01/12/18 04:00 Room Air 01/12/18 04:00 97.7 91 18 108/54 (72) 99 97.7 01/12/18 04:00 84 01/12/18 00:00 Room Air 01/12/18 00:00 97.7 96 19 96/53 (67) 99 97.7 01/12/18 00:00 89 Intake and Output 01/11/18 01/12/18 19:00 07:00 Intake Total 600 ml 75 ml Output Total 400 ml Balance 600 ml -325 ml Intake Oral 600 ml 75 ml Output Urine Total 400 ml # Bowel Movements 3 Laboratory Tests 01/12/18 05:11: White Blood Count 4.8, Red Blood Count 3.77L, Hemoglobin 12.6L, Hematocrit 37.1L , Mean Corpuscular Volume 99, Mean Corpuscular Hemoglobin 33.6H, Mean Corpuscular Hemoglobin Concent 34.0, Red Cell Distribution Width 14.4, Platelet Count 255, Mean Platelet Volume 5.6L, Neutrophils (%) (Auto) 73.0, Lymphocytes ( %) (Auto) 10.9L, Monocytes (%) (Auto) 8.6, Eosinophils (%) (Auto) 5.4H, Basophils (%) (Auto) 2.1H, Sodium Level 137, Potassium Level 3.4L, Chloride Level 99, Carbon Dioxide Level 29, Anion Gap 9, Blood Urea Nitrogen 18, Creatinine 0.6, Estimat Glomerular Filtration Rate , Glucose Level 85, Calcium Level 8.7, Pro-B-Type Natriuretic Peptide 7947H Height (Feet): 5 Height (Inches): 5.00 Weight (Pounds): 89 Dulce Maria Carver MD Jan 12, 2018 23:20
--- NOTE | 2018-01-15 10:36 | Discharge Summary ---
Discharge Summary Discharge Summary _ DATE OF ADMISSION: 01/07/2018 DATE OF DISCHARGE: 01/12/2018 REASON FOR ADMISSION: 77 years old male with past medical history of recent myocardial infarction, diabetes mellitus, hypertension, COPD, was brought to emergency room for evaluation due to low blood pressure. Per paramedics patient had low blood pressure and was poorly responsive. Patient denied chest pain or shortness of breath at that time. Patient's family refused further evaluation for NSTEMI except medical management on previous admission . Patient at that time was also diagnosed with pulmonary hypertension and started on anti-tuberculosis medication regimen . Patient was subsequently cleared by Department of Health for discharge. Laboratory workup revealed elevated troponin -3.757. Pro BNP 9091. Hemoglobin 7.9, hematocrit 24.9. BUN 31, creatinine 0.7. EKG showed inferolateral ST-T depression, but no change from the previous EKG. Patient was given bolus of IV fluids , and blood pressure improved. Patient admitted with diagnoses of NSTEMI, hypotension, anemia. CONSULTANTS: vice president client services Dr. Swanson ID specialist psychiatrist urologist Dr. Sanford [facility]SE: Patient admitted to [facility]. Supplemental oxygen and pulmonary toilet provided as needed. Patient was transfused with 1 unit of packed red blood cells. Glass Finisher closely followed. Serial troponin trending down, last troponin 2.849. Patient denied chest pain. Family continued to refuse any intervention , except medical management. Echocardiogram revealed ejection fraction of 50% with global left ventricular wall hypokinesis. Right ventricular systolic pressure of 24. Grade 1 diastolic dysfunction and mild mitral regurgitation. Anti-failure medication regimen was continued with beta kevin and diuretic. Consider adding ROSALVA inhibitor as blood pressure will allow as outpatient. Double antiplatelet therapy with aspirin and Plavix was provided. Statin was continued. Volumes and cardio- renal parameters were closely monitored. Pro BNP trended down-7947. Electrolytes were corrected as needed. Hypotension resolved with the IV boluses and remained stable with the current anti-failure regimen. Blood sugar was managed with the metformin and sliding scale of insulin. Hemoglobin A1c at goal- 5.7. Hemoglobin and hematocrit were closely monitored with goal to keep hemoglobin above 7. Hemoglobin and hematocrit remain stable after transfusion of 1 unit of packed red blood cells. Prior to discharge , hemoglobin 12.6 and hematocrit 37.1. Infectious disease specialist closely followed. Patient was continued on anti-tuberculosis regimen with INH, PZA, rifampin and pyridoxine. Urine culture revealed Klebsiella pneumonia and Annia. Patient was started on treatment for UTI. Blood culture were negative. DVT and GI prophylaxis provided. Supportive care provided. Pain management was addressed as needed. Bowel regimen instituted. Psychiatrist seen and evaluated patient, and diagnosed patient with encephalopathy secondary to general medical condition. Patient was placed on Lexapro and Zyprexa at nighttime. 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 Follow up with medical doctor at the facility. I have been assigned to dictate discharge summary for this account. I was not involved in the patient's management. Sarah Coyne NP Jan 15, 2018 10:36
== END 2018-01-12 21:30 | DRG 280 ==
LOC: EDBD 13:48 → EMR 14:50 → 2W 14:58 → EDBEDREQ 15:54 → 2W 16:45
PROC: 30233N1 Transfusion of Nonautologous Red Blood Cells into Peripheral Vein, Percutaneous Approach (ICD-10-PCS; principal; 2018-01-07)
DX: I21.4 Non-ST elevation (NSTEMI) myocardial infarction (principal); G93.40 Encephalopathy, unspecified; A15.0 Tuberculosis of lung; N39.0 Urinary tract infection, site not specified; B37.49 Other urogenital candidiasis; I95.9 Hypotension, unspecified; I25.10 Atherosclerotic heart disease of native coronary artery without angina pectoris; I25.2 Old myocardial infarction; E11.9 Type 2 diabetes mellitus without complications; J44.9 Chronic obstructive pulmonary disease, unspecified; E86.0 Dehydration; I10 Essential (primary) hypertension; J47.9 Bronchiectasis, uncomplicated; B96.1 Klebsiella pneumoniae [K. pneumoniae] as the cause of diseases classified elsewhere; N40.1 Benign prostatic hyperplasia with lower urinary tract symptoms; R33.8 Other retention of urine; N31.9 Neuromuscular dysfunction of bladder, unspecified; N39.498 Other specified urinary incontinence; F32.9 Major depressive disorder, single episode, unspecified; D64.9 Anemia, unspecified
CPT/HCPCS: 36415; 71045; 80048; 80053; 80076; 81001; 82270; 82550; 82553; 82962; 83036; 83690; 83735; 83880; 84443; 84484; 85025; 85610; 85730; 86850; 86900; 86901; 86920; 87040; 87081; 87086; 87181; 92610; 93005; 93306; 99291; J1815; J8499